=== PATIENT | female | born 1955 | race Caucasian/White ===

== ENCOUNTER 2019-07-19 09:54 | Emergency (ER) | payer OTHER ==
[2019-07-19 10:08] VITALS: TEMP 98.2; BMI 20.3
--- NOTE | 2019-07-19 10:51 | PDOC ---
Documentation entered by Sandra Tubbs SCRIBE, acting as scribe for Sen Paniagua MD. Sen Paniagua MD: This documentation has been prepared by the caityibeArley Brenda, SCRIBE, under my direction and personally reviewed by me in its entirety. I confirm that the documentation accurately reflects all work, treatment, procedures, and medical decision making performed by me. History of Present Illness - General Chief Complaint: Injury Stated Complaint: FALL History Source: Patient Exam Limitations: No Limitations - History of Present Illness Initial Comments: 07/19/19 10:38 The patient is a 63 year old female, with a significant PMH of MS who presents to the emergency department from assisted living facility after falling. Patient reports that she tripped and fell in her room. She notes that she fell on her L side and back. Patient currently endorses lower back pain. Denies headstrike/LOC. Pt denies any preceding lightheadedness/dizziness. The patient denies chest pain, shortness of breath, headache and dizziness. Denies LOC, or neck pain. Denies fever, chills, nausea, vomiting, diarrhea and constipation. Denies dysuria, frequency, urgency and hematuria. Patient was sent by her PMD Dr. Arizmendi to be admitted under Dr. Billingsley for rehab. I discussed plan with pt's daughter and HCP, Blanca, who requests that pt not be admitted unless medically necessary. She does not wish for pt to be placed in [facility]. She states that she believes her falls are due to her MS and recent cognitive decline, for which she has arranged f/u with 2 specialists. Her next appointment is next Wednesday, and daughter is concerned that if she is admitted and placed, she will miss the appointments she has been waiting so long to get. Allergies: NKA PCP:Gael Arizmendi Past History - Past Medical History Allergies/Adverse Reactions: Allergies Allergy/AdvReac Type Severity Reaction Status Date / Time No Known Allergies Allergy Verified 07/19/19 10:05 Home Medications: Ambulatory Orders Unobtainable 07/19/19 COPD: No - Immunization History Td Vaccination: No Immunization Up to Date: Yes - Psycho Social/Smoking Cessation Hx Smoking History: Never smoked Information on smoking cessation initiated: No Hx Alcohol Use: No Drug/Substance Use Hx: No Review of Systems - Review of Systems Able to Perform ROS?: Yes Comments:: 07/19/19 10:38 GENERAL/CONSTITUTIONAL: No fever or chills. No weakness. HEAD, EYES, EARS, NOSE AND THROAT: No change in vision. No ear pain or discharge. No sore throat. CARDIOVASCULAR: No chest pain, no shortness of breath, no loss of consciousness RESPIRATORY: No cough, wheezing, or hemoptysis. GASTROINTESTINAL: No nausea, vomiting, diarrhea or constipation. GENITOURINARY: No dysuria, frequency, or change in urination. MUSCULOSKELETAL: (+) Back pain. No joint or muscle swelling or pain. No neck pain. SKIN: No rash NEUROLOGIC: No vertigo, no change in strength/sensation. ENDOCRINE: No increased thirst. No abnormal weight change. HEMATOLOGIC/LYMPHATIC: No anemia, easy bleeding, or history of blood clots. ALLERGIC/IMMUNOLOGIC: No hives or skin allergy. *Physical Exam - Vital Signs Last Vital Signs Temp Pulse Resp BP Pulse Ox 98.2 F 89 16 139/84 99 07/19/19 10:06 07/19/19 10:06 07/19/19 10:06 07/19/19 10:06 07/19/19 10:06 - Physical Exam 07/19/19 10:38 GENERAL: Awake, alert, and fully oriented, in no acute distress. HEAD: No signs of trauma EYES: PERRLA, EOMI, sclera anicteric, conjunctiva clear ENT: Auricles normal inspection, hearing grossly normal, nares patent, oropharynx clear without exudates. Moist mucosa NECK: Nontender, no stepoffs, Normal ROM, supple, no lymphadenopathy, JVD, or masses LUNGS: Breath sounds equal, clear to auscultation bilaterally. No wheezes, and no crackles HEART: Regular rate and rhythm, normal S1 and S2, no murmurs, rubs or gallops ABDOMEN: Soft, nontender, normoactive bowel sounds. No guarding, no rebound. No masses EXTREMITIES: Normal range of motion, no edema. No clubbing or cyanosis. No cords, erythema, or tenderness NEUROLOGICAL: Cranial nerves II through XII intact. 5/5 strength and sensation in all extremities, Normal speech, normal gait, normal cerebellar function SKIN: Warm, Dry, normal turgor, no rashes or lesions noted. BACK: + Lumbar paraspinal TTP, no midline TTP, no stepoffs Medical Decision Making - Medical Decision Making 07/19/19 10:35 63 F with MS presenting with fall. No syncope/presyncopal symptoms. - CT head/c-spine/L-spine - CXR Pt's PMD requesting admission for [facility] placement. However, both pt and HCP Blanca requesting that pt be discharged back to assisted living if imaging is unremarkable. Both are refusing any bloodwork today. 07/19/19 11:57 CTs and XR unremarkable Discussed with pt's daughter Blanca, who does not want pt admitted for [facility] placement. I discussed the risk of recurrent falls and recommended admission to hospital, but daughter is insistent that she not be admitted. I assisted pt to her feet. Pt able to ambulate steadily with mild assistance ( uses walker at baseline) Will DC back to assisted living. Pt is well appearing, with normal vitals. Clinically stable for DC at this time. I discussed the physical exam findings, ancillary test results and final diagnoses with the patient. I answered all of the patient's questions. The patient was satisfied with the care received and felt comfortable with the discharge plan and treatment plan. The patient agrees to follow up with the primary care physician within 24-72 hours. Discharge - Discharge Information Problems reviewed: Yes Clinical Impression/Diagnosis: Fall, Back pain Disposition: HOME - Follow up/Referral Referrals: Gael Arizmendi MD [Primary Care Provider] - - Patient Discharge Instructions Patient Printed Discharge Instructions: How to Prevent Falls Additional Instructions: You were evaluated in the ED for a fall. Your CT scans and X rays did not show any fractures. We believe a rehab facility would be beneficial for you. However, because both you and your health-care proxy requested that you be discharged from the hospital, we cannot ensure that you will not have another fall. If you feel like you are going to fall, feel weak, unsteady, lightheaded, or have any other concerning symptoms, return to the ER immediately. Otherwise, follow up with your primary doctor within 48 hours. - Post Discharge Activity
[2019-07-19 13:07] VITALS: BP 135/68; PULSE 83
== END 2019-07-19 14:14 ==
LOC: JER 09:54
DX: M54.5 Low back pain (principal); W18.39XA Other fall on same level, initial encounter; Y93.89 Activity, other specified; Y92.122 Bedroom in nursing home as the place of occurrence of the external cause; Y99.8 Other external cause status; R29.6 Repeated falls; Z91.81 History of falling; G35 Multiple sclerosis; Z99.89 Dependence on other enabling machines and devices
CPT/HCPCS: 70450-TC; 71045-TC-FY; 72125-TC; 72131-TC; 99282-25

== ENCOUNTER 2019-07-22 07:12 | Inpatient (IN) | payer OTHER ==
[2019-07-22 07:29] VITALS: BMI 20.3
--- NOTE | 2019-07-22 07:36 | PDOC ---
History of Present Illness - General Chief Complaint: Injury Stated Complaint: FALL Time Seen by Provider: 07/22/19 07:35 History Source: Patient, Family (daughter) Exam Limitations: No Limitations - History of Present Illness Initial Comments: 07/22/19 07:57 63yF w PMHx multiple sclerosis presenting from [facility] w unwitnessed fall. Pt is a poor historian. 8-9pm last night, fell down while standing by sink. Questionable head trauma and LOC, down for "a couple of hours". Complaining of low back pain. Was seen 3d ago for fall, head CT did not show anything, pt refused lab workup. Was seen at another hospital for fall 2d ago, imaging did not show anything concerning. Denies fever, vision change, nausea/ vomiting, C/AB pain, SOB. Ambulates w walker at baseline. Scheduled for neuro f/ u and MRI next week Daughter is health care proxy Past History - Past Medical History Allergies/Adverse Reactions: Allergies Allergy/AdvReac Type Severity Reaction Status Date / Time No Known Allergies Allergy Verified 07/22/19 07:26 Home Medications: Ambulatory Orders Cephalexin [Keflex] 500 mg PO BID 7 Days #14 capsule 07/22/19 COPD: No HTN: Yes Other medical history: MS - Surgical History Appendectomy: Yes - Immunization History Td Vaccination: No Immunization Up to Date: Yes - Psycho Social/Smoking Cessation Hx Smoking History: Never smoked Have you smoked in the past 12 months: No Information on smoking cessation initiated: No Hx Alcohol Use: No Drug/Substance Use Hx: No Review of Systems - Review of Systems Constitutional: No: Chills, Fever HEENTM: No: Eye Pain, Recent change in vision, Nose Pain, Nose Congestion, Throat Pain, Mouth Pain Respiratory: No: Cough, Shortness of Breath Cardiac (ROS): Yes: Syncope. No: Chest Pain, Palpitations ABD/GI: No: Abdominal Distended, Constipated, Diarrhea, Nausea, Vomiting : No: Burning, Dysuria, Flank Pain Musculoskeletal: Yes: Back Pain. No: Neck Pain Integumentary: No: Bruising, Flushing, Lesions Neurological: No: Headache, Seizure, Tingling Psychiatric: No: Anxiety, Depression, Stressors Endocrine: No: Excessive Sweating, Flushing, Intolerance to Cold, Intolerance to Heat Hematologic/Lymphatic: No: Anemia, Blood Clots *Physical Exam - Vital Signs Last Vital Signs Temp Pulse Resp BP Pulse Ox 97.4 F L 93 H 18 128/77 93 L 07/22/19 07:26 07/22/19 07:26 07/22/19 07:26 07/22/19 07:26 07/22/19 07:26 - Physical Exam General Appearance: Yes: Nourished, Appropriately Dressed, Mild Distress HEENT: positive: EOMI, COLLINS, Normal Voice. negative: Scleral Icterus (R), Scleral Icterus (L), Nasal Congestion, Rhinorrhea, Sinus Tenderness Neck: positive: Supple. negative: Tender, Rigid Respiratory/Chest: positive: Lungs Clear, Normal Breath Sounds. negative: Chest Tender, Respiratory Distress, Crackles, Rales, Rhonchi, Stridor, Wheezing Cardiovascular: positive: Regular Rhythm, Regular Rate, S1, S2. negative: Edema , Murmur Gastrointestinal/Abdominal: positive: Normal Bowel Sounds, Flat, Soft. negative : Tender, Organomegaly Musculoskeletal: positive: Normal Inspection, Vertebral Tenderness (lumbar/ sacral), Other (no stepoffs, midline vertebral deformities, lumar paraspinal mild tenderness). negative: CVA Tenderness (R), CVA Tenderness (L) Extremity: positive: Delayed Capillary Refill Integumentary: positive: Normal Color, Dry, Other (no abrasions). 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 negative: Motor Strength 5/5 (4/5 BUE, 3/ 5 BLE strength), Sensory Deficit, Confused, Disoriented ED Treatment Course - LABORATORY CBC & Chemistry Diagram: 07/22/19 11:01 07/22/19 08:04 Medical Decision Making - Critical Care Time Total Critical Care Time (minutes): 45 Critical Care Statement: The care of this patient involved high complexity decision making to prevent further life threatening deterioration of the patient 's condition and/or to evaluate & treat vital organ system(s) failure or risk of failure. - Medical Decision Making 07/22/19 07:57 Head/c-spine CT showed moderate arthritis in spine, diffuse cerebral atrophy, hypodense changes in periventricular white matter suggesting chronic small vessel ischemia, no acute bleed/infarct/fracture Lumbar/sacral XR showed scoliosis, no acute fracture/dislocation CXR showed clear lung murillo. CBC CMP trop neg UA shows UTI --- 63yF w PMHx multiple sclerosis, recent frequent falls presenting from [facility] w unwitnessed fall w questionable LOC. Head/c-spine CT did not show acute bleed/infarct/fracture. Lumbar/sacral XR showed scoliosis, no acute fracture/dislocation. CXR did not show PNA. Low concern for ACS (neg trop, no chest pain/SOB). Has UTI and urinary retention ( straight cathed returned 1L urine). Given keflex Pt competent to make medical decisions. Pt refused EKG, peripheral IV for fluids or pain meds. Pt refused IV and PO pain meds including tylenol. Daughter at bedside. Had a long discussion regarding leaving AMA vs admit Admitted m/s Dr Hall for syncope, UTI, urinary retention Discharge - Discharge Information Problems reviewed: Yes Clinical Impression/Diagnosis: Urinary retention UTI (urinary tract infection) Qualifiers: Urinary tract infection type: acute cystitis Hematuria presence: without hematuria Qualified Code(s): N30.00 - Acute cystitis without hematuria Syncope Qualifiers: Syncope type: unspecified Qualified Code(s): R55 - Syncope and collapse Condition: Guarded - Additional Discharge Information Prescriptions: Cephalexin [Keflex] 500 mg PO BID 7 Days #14 capsule - Follow up/Referral Referrals: Gael Arizmendi MD [Primary Care Provider] - - Patient Discharge Instructions Patient Printed Discharge Instructions: DI for Syncope in Adults (Fainting), DI for Urinary Tract Infection (UTI) Additional Instructions: You were seen for fall. Your labs and imaging showed that you have a urine infection. You were given antibiotics. Please take the prescribed Keflex as directed for your infection You have been determined to have decision-making capacity and decided to leave our hospital against medical advice. Come back to the ED if you fall again, vomit, or have worsening head pain. - Post Discharge Activity
[2019-07-22] MEDS ORDERED: ACETAMINOPHEN 1000 MG/100 ML VIAL (NON FORMULARY) IVPB ONE (07:56)
[2019-07-22] MEDS ORDERED: SODIUM CHLORIDE 0.9% 500 ML INFUS.BAG IV ONE (07:56)
[2019-07-22] MEDS ORDERED: ACETAMINOPHEN 500 MG TABLET (FP) PO ONE (08:16)
--- NOTE | 2019-07-22 08:17 | PDOC ---
Attending Attestation - Resident Resident Name: Mike Norman - ED Attending Attestation I have performed the following: I have examined & evaluated the patient, The case was reviewed & discussed with the resident, I agree w/resident's findings & plan, Exceptions are as noted - HPI HPI: 07/22/19 08:35 Ms Rousseau is a 63 yo F h/o MS currently residing at an Assisted Living Facility Pt s/p fall at the assisted living facility Pt unable to give additional details about that fall Does not know how long she was on the ground Patient currently endorses lower back pain. Denies headstrike/LOC. Pt denies any preceding lightheadedness/dizziness. The patient denies chest pain, shortness of breath, headache and dizziness. Denies LOC, or neck pain. Denies fever, chills, nausea, vomiting, diarrhea and constipation. Denies dysuria, frequency, urgency and hematuria. - Physicial Exam PE: 07/22/19 08:17 07/19/19 10:38 GENERAL: Awake, alert, and fully oriented, in no acute distress. HEAD: No signs of trauma EYES: PERRLA, EOMI, sclera anicteric, conjunctiva clear ENT: Auricles normal inspection, hearing grossly normal, nares patent, oropharynx clear without exudates. Moist mucosa NECK: Nontender, no stepoffs, Normal ROM, supple LUNGS: Breath sounds equal, clear to auscultation bilaterally. No wheezes, and no crackles HEART: Regular rate and rhythm, normal S1 and S2, no murmurs, rubs or gallops ABDOMEN: Soft, nontender, normoactive bowel sounds EXTREMITIES: Normal range of motion, no edema NEUROLOGICAL: Cranial nerves II through XII intact. Unable to get out of bed and walk SKIN: Warm, Dry, normal turgor, no rashes or lesions noted. BACK: + Lumbar paraspinal TTP, no midline TTP, no stepoffs - Medical Decision Making 07/22/19 08:52 63 yo F h/o MS who presents to the ER s/p an unwitnessed fall This is the 2nd fall for this patient in 3 days Pt was initially sent to the ER (per charting) for PT/SNF placement Pt and daughter refused, requesting to be sent back to the Assisted Living facility Pt , likewise, is refusing blood testing and admission Will call pt daughter to discuss Clinical Impression: unwitnessed fall, initial presentation 07/22/19 13:45 Laboratory Tests 07/22/19 07/22/19 07/22/19 08:04 11:01 11:01 Hgb 14.0 Hct 41.0 BUN 19.4 H Creatinine 0.5 L Creatine Kinase 51 Troponin I < 0.02 EKG: NSR rate of 90 bpm, axis nml, RBBB, no st elevation or depression, t waves upright Pt initially refusing admission Pt later willing to stay Straight cath = 1000 cc Urine Clinical impression: Urinary retention, initial presentation Recurrent falls, repeat presentation
[2019-07-22 12:10] LABS: BASO % 0.6 % (0-2.0); LYMPH % 29.2 % (8-40); MCHC 34.1 g/dl (32.0-36.0); MEAN CELL VOLUME 93.7 fl (80-96); MEAN PLT VOLUME 7.8 fl (7.5-11.1); MONO % 6.9 % (3.8-10.2); NEUT % 61.3 % (42.8-82.8); PLATELET COUNT 381 K/MM3 (134-434); RBC 4.38 M/mm3 (3.60-5.2); RDW 14.8 % (11.6-15.6)
[2019-07-22 12:23] LABS: INR 0.97 (0.83-1.09); PROTHROMBIN TIME (PATIENT) 11.5 SEC (9.7-13.0)
[2019-07-22 12:31] LABS: ALBUMIN 3.9 g/dl (3.4-5.0); BILIRUBIN,TOTAL 0.4 mg/dL (0.2-1); BLOOD UREA NITROGEN 19.4 mg/dL (7-18); CALCIUM 9.4 mg/dL (8.5-10.1); CREATININE 0.5 mg/dL (0.55-1.3); POTASSIUM 3.8 mmol/L (3.5-5.1); TOT PROT 6.8 g/dl (6.4-8.2)
--- NOTE | 2019-07-22 14:03 | EKG ---
Test Reason : Blood Pressure : / mmHG Vent. Rate : 090 BPM Atrial Rate : 090 BPM P-R Int : 140 ms QRS Dur : 136 ms QT Int : 400 ms P-R-T Axes : 058 041 039 degrees QTc Int : 489 ms NORMAL SINUS RHYTHM RIGHT BUNDLE BRANCH BLOCK ABNORMAL ECG NO PREVIOUS ECGS AVAILABLE Confirmed by KIAH ALANIZ MD ([id number]) on 07/22/2019 2:03:26 PM Referred By: Confirmed By:KIAH ALANIZ MD
[2019-07-22 14:29] LABS: EPI CELLS 1.6 /HPF (0-5/HPF); HYALINE CASTS 3 /lpf (0-8); PH,URINE 6.5 (5.0-8.0); URINE APPEARANCE CLOUDY; URINE BACTERIA 2505.5 /hpf (NEGATIVE); URINE BILIRUBIN NEGATIVE (NEGATIVE); URINE COLOR YELLOW; URINE GLUCOSE (UA) NEGATIVE (NEGATIVE); URINE KETONE TRACE (NEGATIVE); URINE LEUK ESTERASE NEGATIVE (NEGATIVE); URINE NITRITE NEGATIVE (NEGATIVE); URINE PROTEIN NEGATIVE (NEGATIVE); URINE RBC 4 /hpf (0-4); URINE UROBILINOGEN 0.2 mg/dL (0.2-1.0); URINE WBC 7 /hpf (0-5)
[2019-07-22] MEDS ORDERED: CEPHALEXIN MONOHYDRATE 500 MG CAPSULE (UD) PO ONE (15:43)
[2019-07-22] MEDS ORDERED: CEPHALEXIN MONOHYDRATE 500 MG CAPSULE (UD) ONE (16:02)
--- NOTE | 2019-07-22 16:54 | HP ---
Admitting History and Physical - Primary Care Physician PCP: Gael Arizmendi - Admission Chief Complaint: unwitness fall History of Present Illness: 63yF w PMH of MS presenting from [facility] w unwitnessed fall. Pt is a poor historian. 8-9pm last night. Questionable head trauma and LOC, down for "a couple of hours". Complaining of low back pain. Was seen 3d ago for fall, HCT was negative and refused further w/u. Was seen at another hospital for fall 2d ago, with reported negative imaging. Denies fever, vision change, nausea/ vomiting, SOB. Ambulates w walker at baseline. Daughter states pt has been steadily declining over past few months. 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 - Past Surgical History Past Surgical History: Yes: None - Advance Directives Advance Directives: Yes: Health Care Proxy (daryn Rios) - Smoking History Smoking history: Never smoked Have you smoked in the past 12 months: No - Alcohol/Substance Use Hx Alcohol Use: No History of Substance Use: reports: None - Social History Usual Living Arrangement: Yes: Assisted Living ([facility]) ADL: Support Services Occupation: disability Home Medications - Allergies Allergies/Adverse Reactions: Allergies Allergy/AdvReac Type Severity Reaction Status Date / Time No Known Allergies Allergy Verified 07/22/19 07:26 - Home Medications Home Medications: Ambulatory Orders Acetaminophen 650 mg PO PRN 07/22/19 Aspirin 81 mg PO DAILY 07/22/19 Atorvastatin Ca [Lipitor] 40 mg PO HS 07/22/19 Cephalexin [Keflex] 500 mg PO BID 7 Days #14 capsule 07/22/19 Cholecalciferol (Vitamin D3) [Vitamin D3 -] 1,000 unit PO DAILY 07/22/19 Clonazepam 1 mg PO TID 07/22/19 Dimethyl Fumarate [Tecfidera] 240 mg PO BID 07/22/19 Ferrous Sulfate 325 mg PO DAILY 07/22/19 Ibuprofen 600 mg PO PRN PRN 07/22/19 Mirtazapine 30 mg PO DAILY 07/22/19 Polyvinyl Alcohol [Artificial Tears] 1 drop OD BID 07/22/19 Quetiapine Fumarate [Seroquel -] 25 mg PO HS 07/22/19 Family Medical History Family History: Unremarkable Review of Systems - Review of Systems Constitutional: reports: No Symptoms Eyes: reports: No Symptoms HENT: reports: No Symptoms Neck: reports: No Symptoms Cardiovascular: reports: No Symptoms Respiratory: reports: No Symptoms Gastrointestinal: reports: No Symptoms Genitourinary: reports: No Symptoms Breasts: reports: No Symptoms Reported Musculoskeletal: reports: Back Pain, Decreased ROM, Muscle Weakness Integumentary: reports: Other (dry skin) Neurological: reports: Change in LOC, Confusion, Dizziness, Incoordination, Unsteady Gait, Weakness Endocrine: reports: No Symptoms Hematology/Lymphatic: reports: No Symptoms Psychiatric: reports: Altered Sleep Pattern Physical Examination Vital Signs: Vital Signs Temperature 97.4 F L 07/22/19 07:26 Pulse Rate 93 H 07/22/19 07:26 Respiratory Rate 18 07/22/19 07:26 Blood Pressure 128/77 07/22/19 07:26 O2 Sat by Pulse Oximetry (%) 93 L 07/22/19 07:26 Constitutional: Yes: Well Nourished, Calm, Mild Distress (regarding hospitaliztion) Eyes: Yes: WNL, Conjunctiva Clear, EOM Intact HENT: Yes: WNL, Atraumatic, Normocephalic Neck: Yes: WNL, Supple, Trachea Midline Cardiovascular: Yes: WNL, Regular Rate and Rhythm Respiratory: Yes: WNL, Regular, CTA Bilaterally Gastrointestinal: Yes: WNL, Normal Bowel Sounds ...Rectal Exam: Yes: Deferred Renal/: Yes: Bladder Distention, Other (urinary retention) Breast(s): Yes: WNL Musculoskeletal: Yes: Back Pain (Lumbar paraspinal TTP), Joint Stiffness, Muscle Pain, Muscle Weakness Extremities: Yes: WNL Edema: LLE: Trace, RLE: Trace Peripheral Pulses WNL: Yes Peripheral Pulses: Left Radial: 2+, Right Radial: 2+, Left Doralis Pedis: 2+, Right Dorsalis Pedis: 2+, Left Femoral: 2+, Right Femoral: 2+ Integumentary: Yes: Other (dry skin) Neurological: Yes: Alert, Ataxia, Confusion, Cran Nerves II-XII Intact, Unsteady Gait, Weakness, Other (ambulates with walker) ...Motor Strength: LLE, RLE (weaKNESS) Psychiatric: Yes: Alert Labs: CBC, BMP 07/22/19 11:01 07/22/19 08:04 Imaging - Results Cat Scan: Report Reviewed (HCT: no acute pathology. C spine: moderate degenerative changes, no fx. Lumbar CT: 4 lumbar vertebral bodies indicating sacralization of L5.) EKG: Image Reviewed (EKG: NSR rate of 90 bpm, axis nml, RBBB, no st elevation or depression, t waves upright) Problem List - Problems (1) Multiple sclerosis Assessment/Plan: follows with neurologist at [facility] - daughter had appointment with another MD for second opinion regarding mother decompensation over last months neurology consult requested HCT without acute pathology questionable need for MRI of brain Code(s): G35 - MULTIPLE SCLEROSIS (2) Syncope Assessment/Plan: multiple falls over last week, questionable syncope v MS progression TTE & Carotid dopplers ordered fall precautions Code(s): R55 - SYNCOPE AND COLLAPSE Qualifiers: Syncope type: unspecified Qualified Code(s): R55 - Syncope and collapse (3) UTI (urinary tract infection) Assessment/Plan: dose of keflex given in ED c/w kelfex 500mg BID UCx pending Code(s): N39.0 - URINARY TRACT INFECTION, SITE NOT SPECIFIED Qualifiers: Urinary tract infection type: acute cystitis Hematuria presence: without hematuria Qualified Code(s): N30.00 - Acute cystitis without hematuria (4) Urinary retention Assessment/Plan: with UTI now, bladder retained over 1000cc in ED frequent toileting with assistance straight cath if continuing to retain bladder scan q 8H Code(s): R33.9 - RETENTION OF URINE, UNSPECIFIED (5) Back pain Assessment/Plan: Lumbar/c spine without acute pathology tylenol PRN pain avoid narcotics/muscle relaxants for back pain PT requested can offer lidopatch if pain persists Code(s): M54.9 - DORSALGIA, UNSPECIFIED (6) Fall Assessment/Plan: progressive decline over past few months with multiple fall, ? 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, could by contributing to falls avoid other sedating medications TTE & Carotid dopplers ordered cardiology & neurology consulted Code(s): W19.XXXA - UNSPECIFIED FALL, INITIAL ENCOUNTER (7) Prophylactic measure Assessment/Plan: FEN appears dehydrated poor skin turgor & skin very dry regular diet monitor electrolytes DVT no chemical AC given fall history Dispo admit to telemetry for syncope w/u full code discharge planning back to [facility] Code(s): Z29.9 - ENCOUNTER FOR PROPHYLACTIC MEASURES, UNSPECIFIED Visit type - Emergency Visit Emergency Visit: Yes Care time: The patient presented to the Emergency Department on the above date and was hospitalized for further evaluation of their emergent condition. - New Patient This patient is new to me today: Yes Date on this admission: 07/22/19 - Critical Care Critical Care patient: No
[2019-07-22] MEDS ORDERED: CHOLECALCIFEROL (VIT D3) 1,000 UNIT (25 MCG) TABLET PO ONE (17:38)
[2019-07-22] MEDS ORDERED: ACETAMINOPHEN 325 MG TABLET (FP) PO PRN (17:38)
[2019-07-22] MEDS ORDERED: ATORVASTATIN CA 40 MG TABLET (FP) PO ONE (17:38)
[2019-07-22] MEDS ORDERED: ATORVASTATIN CA 40 MG TABLET (FP) ONE (18:05)
[2019-07-22] MEDS ORDERED: MIRTAZAPINE 15 MG TABLET (FP) ONE (22:00)
[2019-07-22] MEDS ORDERED: HEPARIN NA (PORCINE) 5,000 UNITS/ML 1ML VIAL SQ SCH (22:00)
[2019-07-22] MEDS: clonazePAM 0.5 MG TABLET PO SCH (22:07)
[2019-07-22] MEDS: MIRTAZAPINE 30 MG TABLET (FP) PO SCH (22:07)
[2019-07-22] MEDS: CEPHALEXIN MONOHYDRATE 500 MG CAPSULE (UD) PO SCH (22:08)
[2019-07-23] MEDS: POLYETHYLENE GLYCOL 3350 119 GM BTL PO SCH ×3 (04:30→21:25)
[2019-07-23] MEDS: ARTIFICIAL TEARS (POLYVINYL ALCOHOL) OPTH DROPS OU SCH ×3 (04:30→21:25)
[2019-07-23] MEDS: clonazePAM 0.5 MG TABLET PO SCH ×4 (06:27→21:25)
--- NOTE | 2019-07-23 07:53 | PN ---
Progress Note, Physician Chief Complaint: No complaints offered. Asking to go home. History of Present Illness: 63yF w PMH of MS presenting from [facility] w unwitnessed fall. Pt is a poor historian. 8-9pm last night. Questionable head trauma and LOC, down for "a couple of hours". Complaining of low back pain. Was seen 3d ago for fall, HCT was negative and refused further w/u. Was seen at another hospital for fall 2d ago, with reported negative imaging. Denies fever, vision change, nausea/ vomiting, SOB. Ambulates w walker at baseline. Daughter states pt has been steadily declining over past few months. Scheduled for neuro f/u and MRI next week with additional laboratory testing - Current Medication List Current Medications: Active Medications Acetaminophen (Tylenol -) 650 mg PO Q6H PRN PRN Reason: PAIN LEVEL 1-5 Artificial Tears (Artificial Tears) 1 drop OU BID [facility] Last Admin: 07/23/19 04:30 Dose: Not Given Aspirin (Ecotrin -) 81 mg PO DAILY [facility] Cephalexin HCl (Keflex -) 500 mg PO BID [facility] Last Admin: 07/22/19 22:08 Dose: 500 mg Clonazepam (Klonopin -) 1 mg PO TID@0700,1100,1600 [facility] Last Admin: 07/23/19 06:27 Dose: 1 mg Clonazepam (Klonopin -) 1 mg PO HS@2200 [facility] Last Admin: 07/22/19 22:07 Dose: 1 mg Ferrous Sulfate (Feosol -) 325 mg PO DAILY@0800 [facility] Mirtazapine (Remeron -) 30 mg PO HS [facility] Last Admin: 07/22/19 22:07 Dose: 30 mg Polyethylene Glycol (Miralax (For Daily Use) -) 17 gm PO BID [facility] Last Admin: 07/23/19 04:30 Dose: Not Given - Objective Vital Signs: Vital Signs Temperature 98.4 F 07/23/19 05:00 Pulse Rate 84 07/23/19 05:00 Respiratory Rate 18 07/23/19 05:00 Blood Pressure 144/82 07/23/19 05:00 O2 Sat by Pulse Oximetry (%) 99 07/22/19 23:00 Additional Findings/Remarks: Constitutional: Yes: Well Nourished, Calm, Mild Distress (regarding hospitaliztion) Eyes: Yes: WNL, Conjunctiva Clear, EOM Intact HENT: Yes: WNL, Atraumatic, Normocephalic Neck: Yes: WNL, Supple, Trachea Midline Cardiovascular: Yes: WNL, Regular Rate and Rhythm Respiratory: Yes: WNL, Regular, CTA Bilaterally Gastrointestinal: Yes: WNL, Normal Bowel Sounds ...Rectal Exam: Yes: Deferred Renal/: Yes: Bladder Distention, Other (urinary retention) Breast(s): Yes: WNL Musculoskeletal: Yes: Back Pain (Lumbar paraspinal TTP-less today), Joint Stiffness, Muscle Pain, Muscle Weakness Extremities: Yes: WNL Edema: LLE: Trace, RLE: Trace Peripheral Pulses WNL: Yes Peripheral Pulses: Left Radial: 2+, Right Radial: 2+, Left Doralis Pedis: 2+, Right Dorsalis Pedis: 2+, Left Femoral: 2+, Right Femoral: 2+ Integumentary: Yes: Other (dry skin) Neurological: Yes: Alert, Ataxia, Confusion, Cran Nerves II-XII Intact, Unsteady Gait, Weakness, Other (ambulates with walker) ...Motor Strength: LLE, RLE (weaKNESS) Psychiatric: Yes: Alert Labs: CBC, BMP 07/22/19 11:01 07/22/19 08:04 INR, PTT INR 0.97 (0.83-1.09) 07/22/19 11:01 - ....Imaging Other: Other (Carotid doppplers done-report pending) Problem List - Problems (1) Multiple sclerosis Assessment/Plan: follows with neurologist at [facility] - daughter had appointment with another MD for second opinion regarding mother decompensation over last months neurology consult requested HCT without acute pathology questionable need for MRI of brain now-will defer to neurology given know MS Code(s): G35 - MULTIPLE SCLEROSIS (2) Syncope Assessment/Plan: multiple falls over last week, questionable syncope v MS progression TTE pending Carotid dopplers with mild atherosclerosis with no hemodynamically stenosis fall precautions working with PT Code(s): R55 - SYNCOPE AND COLLAPSE Qualifiers: Syncope type: unspecified Qualified Code(s): R55 - Syncope and collapse (3) UTI (urinary tract infection) Assessment/Plan: c/w kelfex 500mg BID UCx NGTD but was on abx when sent Code(s): N39.0 - URINARY TRACT INFECTION, SITE NOT SPECIFIED Qualifiers: Urinary tract infection type: acute cystitis Hematuria presence: without hematuria Qualified Code(s): N30.00 - Acute cystitis without hematuria (4) Urinary retention Assessment/Plan: with UTI now, bladder retained over 1000cc in ED voiding on own over night frequent toileting with assistance bladder scan q 8H Code(s): R33.9 - RETENTION OF URINE, UNSPECIFIED (5) Back pain Assessment/Plan: Lumbar/c spine without acute pathology tylenol PRN pain avoid narcotics/muscle relaxants for back pain PT requested Code(s): M54.9 - DORSALGIA, UNSPECIFIED (6) Fall Assessment/Plan: progressive decline over past few months with multiple fall, ? syncope fall precautions pt on senior living high doses of klonopin 4x a day, could by contributing to falls avoid other sedating medications TTE & Carotid dopplers ordered cardiology & neurology consulted and pending Code(s): W19.XXXA - UNSPECIFIED FALL, INITIAL ENCOUNTER (7) Prophylactic measure Assessment/Plan: FEN IVf given overnight-drinking now regular diet monitor electrolytes DVT no chemical AC given fall history Dispo admit to telemetry for syncope w/u full code discharge planning back to [facility] Code(s): Z29.9 - ENCOUNTER FOR PROPHYLACTIC MEASURES, UNSPECIFIED Visit type - Emergency Visit Emergency Visit: Yes ED Registration Date: 07/22/19 Care time: The patient presented to the Emergency Department on the above date and was hospitalized for further evaluation of their emergent condition. - New Patient This patient is new to me today: No - Critical Care Critical Care patient: No - Discharge Referral Referred to [facility] Med P.C.: No
[2019-07-23] MEDS: ASPIRIN COATED 81 MG TABLET.EC PO SCH (10:27)
[2019-07-23] MEDS: CEPHALEXIN MONOHYDRATE 500 MG CAPSULE (UD) PO SCH ×2 (10:28→21:23)
[2019-07-23] MEDS: FERROUS SO4 325 MG TABLET (FP) PO SCH (10:28)
--- NOTE | 2019-07-23 13:06 | CON.NEURO ---
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 - Past Surgical History Past Surgical History: Yes: None - Alcohol/Substance Use Hx Alcohol Use: No History of Substance Use: reports: None - Smoking History Smoking history: Never smoked Have you smoked in the past 12 months: No - Social History ADL: Support Services Occupation: disability Home Medications - Allergies Allergies/Adverse Reactions: Allergies Allergy/AdvReac Type Severity Reaction Status Date / Time No Known Allergies Allergy Verified 07/22/19 07:26 - Home Medications Home Medications: Ambulatory Orders Acetaminophen 650 mg PO PRN 07/22/19 Aspirin 81 mg PO DAILY 07/22/19 Atorvastatin Ca [Lipitor] 40 mg PO HS 07/22/19 Cephalexin [Keflex] 500 mg PO BID 7 Days #14 capsule 07/22/19 Cholecalciferol (Vitamin D3) [Vitamin D3 -] 1,000 unit PO DAILY 07/22/19 Clonazepam 1 mg PO TID 07/22/19 Dimethyl Fumarate [Tecfidera] 240 mg PO BID 07/22/19 Ferrous Sulfate 325 mg PO DAILY 07/22/19 Ibuprofen 600 mg PO PRN PRN 07/22/19 Mirtazapine 30 mg PO DAILY 07/22/19 Polyvinyl Alcohol [Artificial Tears] 1 drop OD BID 07/22/19 Quetiapine Fumarate [Seroquel -] 25 mg PO HS 07/22/19 Physical Exam-Neuro Vital Signs: Vital Signs Temperature 97.9 F 07/23/19 09:00 Pulse Rate 88 07/23/19 09:00 Respiratory Rate 18 07/23/19 09:00 Blood Pressure 145/72 07/23/19 09:00 O2 Sat by Pulse Oximetry (%) 99 07/23/19 09:00 Labs: CBC, BMP 07/22/19 11:01 07/22/19 08:04 INR, PTT INR 0.97 (0.83-1.09) 07/22/19 11:01 Assessment/Plan CC FALL AND cognitive decline HPI 63 year old female history of MS( diagnosed 18 month ago), patient also hve history of Depression and anxiety. She has multiple unwitnessed fall, and she is living in assisted living facility. Patient is able to walk with walker. 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 Patient has been having difficulty with walking and falling . She was diagnosed with MS by Dr Hodge. Patient is feeling better and was seen with daughter at bedside. PMH MS, Depression ad anxiety Allergies/Adverse Reactions: Allergies Allergy/AdvReac Type Severity Reaction Status Date / Time No Known Allergies Allergy Verified 07/22/19 07:26 - Home Medications Home Medications: Ambulatory Orders Acetaminophen 650 mg PO PRN 07/22/19 Aspirin 81 mg PO DAILY 07/22/19 Atorvastatin Ca [Lipitor] 40 mg PO HS 07/22/19 Cephalexin [Keflex] 500 mg PO BID 7 Days #14 capsule 07/22/19 Cholecalciferol (Vitamin D3) [Vitamin D3 -] 1,000 unit PO DAILY 07/22/19 Clonazepam 1 mg PO TID 07/22/19 Dimethyl Fumarate [Tecfidera] 240 mg PO BID 07/22/19 Ferrous Sulfate 325 mg PO DAILY 07/22/19 Ibuprofen 600 mg PO PRN PRN 07/22/19 Mirtazapine 30 mg PO DAILY 07/22/19 Polyvinyl Alcohol [Artificial Tears] 1 drop OD BID 07/22/19 Quetiapine Fumarate [Seroquel -] 25 mg PO HS 07/22/19 ROS,FH,SH reviewed in chart NEUROLOGICAL EXAMINATION Alert oriented x 2( confused about date), neck is supple, vss eomi, puils , no nystagmus, no face asymmetry moving all extremity able to walk with wlaker strength is normal at each group of muscle ftn is normal sensaiton is normal ct head and ct c spine is normal Assessment/Plan 63 year old female history of depression and anxiety . She is on Tecfidera for MS. 2. Cognitive difficulty secondary to mood disorder, ms and depression anxiety Plan: Continue current level of care - suggest to do MRI of brain and and C spine with contrast - PT -Patient can be discharged after mri, if any enhacing lesion, would recommend to give her iv steroid Thanking you so much Carlos Choudhruy MD
--- NOTE | 2019-07-23 13:23 | CON.CARD ---
Consult Consult Specialty:: Cardiology for Dr. Phan Referred by:: Hospitalist Medicine Reason for Consultation:: Syncope - History of Present Illness Chief Complaint: Syncope History of Present Illness: 63 year old female history of MS( diagnosed 18 month ago), Depression and anxiety. She has multiple unwitnessed fall and has been admitted for recurrence , questionable head trauma and LOC, patient denies. She is living in assisted living facility. Patient is able to walk with walker. 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 Patient has been having difficulty with walking and falling . She was diagnosed with MS by Dr Hodge. 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 - Past Surgical History Past Surgical History: Yes: None - Alcohol/Substance Use Hx Alcohol Use: No History of Substance Use: reports: None - Smoking History Smoking history: Never smoked Have you smoked in the past 12 months: No - Social History ADL: Support Services Occupation: disability Home Medications - Allergies Allergies/Adverse Reactions: Allergies Allergy/AdvReac Type Severity Reaction Status Date / Time No Known Allergies Allergy Verified 07/22/19 07:26 - Home Medications Home Medications: Ambulatory Orders Acetaminophen 650 mg PO PRN 07/22/19 Aspirin 81 mg PO DAILY 07/22/19 Atorvastatin Ca [Lipitor] 40 mg PO HS 07/22/19 Cephalexin [Keflex] 500 mg PO BID 7 Days #14 capsule 07/22/19 Cholecalciferol (Vitamin D3) [Vitamin D3 -] 1,000 unit PO DAILY 07/22/19 Clonazepam 1 mg PO TID 07/22/19 Dimethyl Fumarate [Tecfidera] 240 mg PO BID 07/22/19 Ferrous Sulfate 325 mg PO DAILY 07/22/19 Ibuprofen 600 mg PO PRN PRN 07/22/19 Mirtazapine 30 mg PO DAILY 07/22/19 Polyvinyl Alcohol [Artificial Tears] 1 drop OD BID 07/22/19 Quetiapine Fumarate [Seroquel -] 25 mg PO HS 07/22/19 Review of Systems - Review of Systems Constitutional: reports: Weakness Neurological: reports: Incoordination, Unsteady Gait, Weakness Vital Signs: Vital Signs Temperature 97.9 F 07/23/19 09:00 Pulse Rate 88 07/23/19 09:00 Respiratory Rate 18 07/23/19 09:00 Blood Pressure 145/72 07/23/19 09:00 O2 Sat by Pulse Oximetry (%) 99 07/23/19 09:00 Constitutional: Yes: No Distress, Calm, Thin Neck: Yes: Supple Respiratory: Yes: Regular, CTA Bilaterally Gastrointestinal: Yes: Normal Bowel Sounds, Soft Cardiovascular: Yes: Regular Rate and Rhythm JVD: No Carotid Bruit: No Heart Sounds: Yes: S1, S2 Edema: No - Other Data Labs, Other Data: CBC, BMP 07/22/19 11:01 07/22/19 08:04 INR, PTT INR 0.97 (0.83-1.09) 07/22/19 11:01 NSR @ 90 RBBB Ejection Fraction %: LVEF > or = 40 % Imaging - Results Chest X-ray: Report Reviewed (NAD) Cat Scan: Report Reviewed (HCT, c-spine: Negative) Ultrasound: Report Reviewed (Carotid US: No sig stenosis) Problem List - Problems (1) Gait disturbance Code(s): R26.9 - UNSPECIFIED ABNORMALITIES OF GAIT AND MOBILITY (2) Multiple sclerosis Code(s): G35 - MULTIPLE SCLEROSIS Assessment/Plan 07/22/[address] c spine is normal 07/22/2019 Carotid US: Neg for stenosis 1. Multiple sclerosis on Tecfidera 2. Cognitive difficulty secondary to mood disorder, ms and depression anxiety 3. Multiple falls, gait instability vs syncope 2/2 dysautonomia 4. UTI with neurogenic bladder and urinary retention 5. Chronic LBP 6. Hyperlipidemia Plan: 1. Check orthostatic VS 2. F/u MRI of brain and and C spine with contrast, if any enhacing lesion, would recommend to give her iv steroid 3. F/u echocardiogram results, night monitor 4. post void residuals, PT and gait training with walker assistance, continue Lipitor 40 qd 5. Thank you for consultative opportunity
[2019-07-23] MEDS ORDERED: MIRTAZAPINE 15 MG TABLET (FP) ONE (21:11)
[2019-07-23] MEDS: ATORVASTATIN CA 40 MG TABLET (FP) PO SCH (21:23)
[2019-07-23] MEDS: MIRTAZAPINE 30 MG TABLET (FP) PO SCH (21:23)
[2019-07-24] MEDS: clonazePAM 0.5 MG TABLET PO SCH ×4 (06:01→21:55)
--- NOTE | 2019-07-24 09:38 | PN ---
Progress Note (short form) - Note Progress Note: 63 year old female history of MS( diagnosed 18 month ago), patient also hve history of Depression and anxiety. She has multiple unwitnessed fall, and she is living in assisted living facility. Patient is able to walk with walker. 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 Patient has been having difficulty with walking and falling . She was diagnosed with MS by Dr Hodge. No new complain and waiting for mri of brain. NEUROLOGICAL EXAMINATION Alert oriented x 2( confused about date), neck is supple, vss eomi, puils , no nystagmus, no face asymmetry moving all extremity able to walk with wlaker strength is normal at each group of muscle ftn is normal sensaiton is normal ct head and ct c spine is normal mri of brain and c spine is pending Assessment/Plan 63 year old female history of depression and anxiety . She is on Tecfidera for MS. 2. Cognitive difficulty secondary to mood disorder, ms and depression anxiety Plan: Continue current level of care -waiting MRI of brain and and C spine with contrast - PT -Patient can be discharged after mri, if any enhacing lesion, would recommend to give her iv steroid Thanking you so much Carlos Choudhury MD
[2019-07-24] MEDS: CEPHALEXIN MONOHYDRATE 500 MG CAPSULE (UD) PO SCH ×2 (09:47→21:56)
[2019-07-24] MEDS: POLYETHYLENE GLYCOL 3350 119 GM BTL PO SCH ×2 (09:48→21:55)
[2019-07-24] MEDS: FERROUS SO4 325 MG TABLET (FP) PO SCH (09:48)
[2019-07-24] MEDS: ASPIRIN COATED 81 MG TABLET.EC PO SCH (09:48)
[2019-07-24] MEDS: ARTIFICIAL TEARS (POLYVINYL ALCOHOL) OPTH DROPS OU SCH ×2 (09:48→22:01)
--- NOTE | 2019-07-24 10:04 | PN ---
Physical Exam: SUBJECTIVE: Patient seen and examined OBJECTIVE: Patient is a 63 year old female with a significant past medical history of MS, depression and anxiety. She presents to the ED from [facility] w unwitnessed fall. She is pending brain/cervical MRI prior to d/c Vital Signs Period Temp Pulse Resp BP Sys/Clemente Pulse Ox Last 24 Hr 97.6 F-99.1 F 76-100 18-20 124-147/63-87 100-100 GENERAL: The patient is awake, alert, and fully oriented, in no acute distress. HEAD: Normal with no signs of trauma. EYES: PERRL, extraocular movements intact, sclera anicteric, conjunctiva clear. No ptosis. ENT: Ears normal, nares patent, oropharynx clear without exudates, moist mucous membranes. NECK: Trachea midline, full range of motion, supple. LUNGS: Breath sounds equal, diminished HEART: Regular rate and rhythm ABDOMEN: Soft, nontender, nondistended, normoactive bowel sounds EXTREMITIES: no edema. NEUROLOGICAL: Normal speech, ambulates with rw PSYCH: Normal mood, normal affect. SKIN: Warm, dry, normal turgor, no rashes or lesions noted Active Medications Generic Name Dose Route Start Last Admin Trade Name Freq PRN Reason Stop Dose Admin Acetaminophen 650 mg 07/22/19 17:38 Tylenol - PO Q6H PRN PAIN LEVEL 1-5 Artificial Tears 1 drop 07/22/19 22:00 07/23/19 21:25 Artificial Tears OU 1 drop BID [facility] Administration Aspirin 81 mg 07/23/19 10:00 07/23/19 10:27 Ecotrin - PO 81 mg DAILY [facility] Administration Atorvastatin Calcium 40 mg 07/23/19 22:00 07/23/19 21:23 Lipitor - PO 40 mg HS [facility] Administration Cephalexin HCl 500 mg 07/22/19 22:00 07/23/19 21:23 Keflex - PO 500 mg BID [facility] Administration Clonazepam 1 mg 07/23/19 07:00 07/24/19 06:01 Klonopin - PO 1 mg TID@0700,1100,1600 [facility] Administration Clonazepam 1 mg 07/22/19 22:00 07/23/19 21:25 Klonopin - PO 1 mg HS@2200 [facility] Administration Ferrous Sulfate 325 mg 07/23/19 08:00 07/23/19 10:28 Feosol - PO 325 mg DAILY@0800 [facility] Administration Mirtazapine 30 mg 07/22/19 22:00 07/23/19 21:23 Remeron - PO 30 mg HS [facility] Administration Non-Formulary Medication 240 mg 07/23/19 22:00 Dimethyl Fumarate [Tecfidera] PO BID [facility] Polyethylene Glycol 17 gm 07/22/19 22:00 07/23/19 21:25 Miralax (For Daily Use) - PO 17 grams BID [facility] Administration ASSESSMENT/PLAN: Problem List - Problems (1) Syncope Assessment/Plan: multiple falls over last week, questionable syncope v MS progression TTE pending Carotid dopplers with mild atherosclerosis with no hemodynamically stenosis fall precautions working with PT Code(s): R55 - SYNCOPE AND COLLAPSE Qualifiers: Syncope type: unspecified Qualified Code(s): R55 - Syncope and collapse (2) Gait disturbance Assessment/Plan: progressive decline over past few months with multiple falls fall precautions pt on long-term high doses of klonopin 4x a day, could by contributing to falls avoid other sedating medications TTE & Carotid dopplers ordered, pending cardiology & neurology consulted and pending Code(s): R26.9 - UNSPECIFIED ABNORMALITIES OF GAIT AND MOBILITY (3) Multiple sclerosis Assessment/Plan: follows with neurologist at [facility] - daughter had appointment with another MD for second opinion regarding mother decompensation over last months neurology consult requested HCT without acute pathology brain mri pending Code(s): G35 - MULTIPLE SCLEROSIS (4) UTI (urinary tract infection) Assessment/Plan: c/w kelfex 500mg BID [facility] NGTD but was on abx when sent Code(s): N39.0 - URINARY TRACT INFECTION, SITE NOT SPECIFIED Qualifiers: Urinary tract infection type: acute cystitis Hematuria presence: without hematuria Qualified Code(s): N30.00 - Acute cystitis without hematuria (5) Urinary retention Assessment/Plan: with UTI now, bladder retained over 1000cc in ED voiding on own frequent toileting with assistance bladder scan q 8h Code(s): R33.9 - RETENTION OF URINE, UNSPECIFIED (6) Back pain Assessment/Plan: Lumbar/c spine without acute pathology tylenol PRN pain avoid narcotics/muscle relaxants for back pain PT requested Code(s): M54.9 - DORSALGIA, UNSPECIFIED (7) Fall Code(s): W19.XXXA - UNSPECIFIED FALL, INITIAL ENCOUNTER (8) Prophylactic measure Assessment/Plan: FEN regular diet monitor electrolytes DVT no chemical AC given fall history Dispo telemetry for syncope w/u full code discharge planning back to [facility] Code(s): Z29.9 - ENCOUNTER FOR PROPHYLACTIC MEASURES, UNSPECIFIED Visit type - Emergency Visit Emergency Visit: Yes ED Registration Date: 07/22/19 Care time: The patient presented to the Emergency Department on the above date and was hospitalized for further evaluation of their emergent condition. - New Patient This patient is new to me today: Yes Date on this admission: 07/24/19 - Critical Care Critical Care patient: No - Discharge Referral Referred to [facility] Med P.C.: No
--- NOTE | 2019-07-24 11:50 | PN ---
Progress Note, Physician History of Present Illness: Ms Rousseau is a 63 yo F h/o MS currently residing at an Assisted Living Facility Pt s/p fall at the assisted living facility Pt unable to give additional details about that fall Does not know how long she was on the ground Patient currently endorses lower back pain. Denies headstrike/LOC. Pt denies any preceding lightheadedness/dizziness. The patient denies chest pain, shortness of breath, headache and dizziness. Denies LOC, or neck pain. Denies fever, chills, nausea, vomiting, diarrhea and constipation. Denies dysuria, frequency, urgency and hematuria. - Current Medication List Current Medications: Active Medications Acetaminophen (Tylenol -) 650 mg PO Q6H PRN PRN Reason: PAIN LEVEL 1-5 Artificial Tears (Artificial Tears) 1 drop OU BID [facility] Last Admin: 07/24/19 09:48 Dose: 1 drop Aspirin (Ecotrin -) 81 mg PO DAILY [facility] Last Admin: 07/24/19 09:48 Dose: 81 mg Atorvastatin Calcium (Lipitor -) [address] [facility] Last Admin: 07/23/19 21:23 Dose: 40 mg Cephalexin HCl (Keflex -) 500 mg PO BID [facility] Last Admin: 07/24/19 09:47 Dose: 500 mg Clonazepam (Klonopin -) 1 mg PO TID@0700,1100,1600 [facility] Last Admin: 07/24/19 06:01 Dose: 1 mg Clonazepam (Klonopin -) 1 mg PO HS@2200 [facility] Last Admin: 07/23/19 21:25 Dose: 1 mg Ferrous Sulfate (Feosol -) 325 mg PO DAILY@0800 [facility] Last Admin: 07/24/19 09:48 Dose: 325 mg Mirtazapine (Remeron -) 30 mg PO HS [facility] Last Admin: 07/23/19 21:23 Dose: 30 mg Non-Formulary Medication (Dimethyl Fumarate [Tecfidera]) 240 mg PO BID [facility] Polyethylene Glycol (Miralax (For Daily Use) -) 17 gm PO BID [facility] Last Admin: 07/24/19 09:48 Dose: 17 grams - Objective Vital Signs: Vital Signs Temperature 97.9 F 07/24/19 06:00 Pulse Rate 82 07/24/19 06:00 Respiratory Rate 18 07/24/19 09:00 Blood Pressure 147/76 07/24/19 06:00 O2 Sat by Pulse Oximetry (%) 100 07/24/19 09:00 Labs: CBC, BMP 07/22/19 11:01 07/22/19 08:04 INR, PTT INR 0.97 (0.83-1.09) 07/22/19 11:01
--- NOTE | 2019-07-24 12:41 | ECHO ---
Name: JUAN YOU Exam:Adult Echocardiogram Study Date: 07/24/2019 11:46 AM Age: 63 yrs Reason For Study: SYNCOPE Height: 67 in Weight: 130 lb BSA: 1.7 m2 MMode/2D Measurements & Calculations IVSd: 1.0 cm Ao root diam: 2.9 cm LVIDd: 2.6 cm LA dimension: 2.5 cm LVIDs: 1.9 cm ACS: 2.0 cm LVPWd: 0.80 cm EDV(Teich): 23.6 ml LVOT diam: 1.8 cm ESV(Teich): 11.0 ml RV S Simon: 14.2 cm/sec Doppler Measurements & Calculations MV E max simon: 84.4 cm/sec Ao V2 max: 149.9 cm/sec MV A max simon: 107.1 cm/sec Ao max P.0 mmHg MV E/A: 0.79 Ao V2 mean: 119.7 cm/sec MV dec time: 0.21 sec Ao mean P.0 mmHg Ao V2 VTI: 30.8 cm SAMUEL(I,D): 2.1 cm2 SAMUEL(V,D): 2.2 cm2 LV V1 max P.2 mmHg MR max simon: 449.0 cm/sec LV V1 mean P.4 mmHg MR max P.7 mmHg LV V1 max: 134.4 cm/sec LV V1 mean: 82.7 cm/sec LV V1 VTI: 25.9 cm SV(LVOT): 64.7 ml TR max simon: 176.0 cm/sec TR max P.1 mmHg PA V2 max: 55.3 cm/sec Med Peak E' Simon: 7.0 cm/sec PA max P.2 mmHg Med E/e': 12.0 Lat Peak E' Simon: 10.0 cm/sec Lat E/e': 8.4 Procedure A complete two-dimensional transthoracic echocardiogram was performed (2D, M-mode, Doppler and color flow Doppler). Left Ventricle The left ventricle is normal in size. Left ventricular systolic function is normal. Ejection Fraction = 55- 60%. No regional wall motion abnormalities noted. Right Ventricle The right ventricle is normal size. The right ventricular systolic function is normal. RV systolic TD I is 14 cm/s. Atria The left atrial size is normal. Right atrial size is normal. Mitral Valve The mitral valve is normal in structure and function. There is mild mitral regurgitation. Tricuspid Valve The tricuspid valve is normal in structure and function. There is mild tricuspid regurgitation. Right ventricular systolic pressure is normal. Aortic Valve There is mild aortic sclerosis.;. No aortic regurgitation is present. Pulmonic Valve The pulmonic valve is not well visualized. Great Vessels The aortic root is normal size. Pericardium/Pleura There is no pericardial effusion. Interpretation Summary The left ventricle is normal in size. Left ventricular systolic function is normal. No regional wall motion abnormalities noted. Ejection Fraction = 55-60%. The right ventricular systolic function is normal. The left atrial size is normal. Right atrial size is normal. There is mild mitral regurgitation. There is mild tricuspid regurgitation. Right ventricular systolic pressure is normal. There is mild aortic sclerosis. There is no pericardial effusion. Meng Clemente MD 07/24/2019 12:40 PM
[2019-07-24] MEDS ORDERED: MIRTAZAPINE 15 MG TABLET (FP) ONE (21:44)
[2019-07-24] MEDS: ATORVASTATIN CA 40 MG TABLET (FP) PO SCH (21:54)
[2019-07-24] MEDS: MIRTAZAPINE 30 MG TABLET (FP) PO SCH (21:55)
[2019-07-24] MEDS: PATIENT'S OWN MEDICATION (NON-FORMULARY) (Dimethyl Fumarate [Tecfidera] 240 MG) PO SCH (21:57)
[2019-07-25] MEDS: clonazePAM 0.5 MG TABLET PO SCH (06:39)
--- NOTE | 2019-07-25 07:35 | PN ---
Progress Note (short form) - Note Progress Note: 63 year old female history of MS( diagnosed 18 month ago), patient also hve history of Depression and anxiety. She has multiple unwitnessed fall, and she is living in assisted living facility. Patient is able to walk with walker. 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 Patient has been having difficulty with walking and falling . She was diagnosed with MS by Dr Hodge. mri of brain and c spine with contrast done and there is old plaque and no evidence of enhancing lesion. NEUROLOGICAL EXAMINATION Alert oriented x 2( confused about date), neck is supple, vss eomi, puils , no nystagmus, no face asymmetry moving all extremity able to walk with wlaker strength is normal at each group of muscle ftn is normal sensaiton is normal ct head and ct c spine is normal mri of brain and c spine report reviewed , there is demyelinating plaque but no enhancing lesion Assessment/Plan 63 year old female history of depression and anxiety . She is on Tecfidera for MS. 2. Cognitive difficulty secondary to mood disorder, ms and depression anxiety Plan: Continue current level of care -mri of brain and c spine did not show any enhancing lesion, patient can be discharged from neurological point of view - no need for iv steroid. Thanking you so much Carlos Choudhury MD
--- NOTE | 2019-07-25 09:29 | DS ---
Physical Exam: SUBJECTIVE: Patient seen and examined, denies pain OBJECTIVE: Patient is a 63 year old female with a significant past medical history of MS, depression and anxiety. She presents to the ED from [facility] w unwitnessed fall. MRI of brain and c spine did not show any enhancing lesion. Seen by neurologist and cleared for discharge. She will be discharged back to [facility]. Period Temp Pulse Resp BP Sys/Clemente Pulse Ox Last 24 Hr 98 F-98.3 F 81-93 18-20 129-143/69-85 98 PHYSICAL EXAM GENERAL: The patient is awake, alert, and fully oriented, in no acute distress. HEAD: Normal with no signs of trauma. EYES: PERRL, extraocular movements intact, sclera anicteric, conjunctiva clear. No ptosis. ENT: Ears normal, nares patent, oropharynx clear without exudates, moist mucous membranes. NECK: Trachea midline, full range of motion, supple. LUNGS: Breath sounds equal, diminished HEART: Regular rate and rhythm ABDOMEN: Soft, nontender, nondistended, normoactive bowel sounds EXTREMITIES: no edema. NEUROLOGICAL: Normal speech, ambulates with rw PSYCH: Normal mood, normal affect. SKIN: Warm, dry, normal turgor, no rashes or lesions noted LABS Laboratory Results - last 24 hr 07/22/19 07/24/19 08:04 08:00 Sodium 143 Potassium 3.8 Chloride 106 Carbon Dioxide 30 Anion Gap 7 L BUN 19.4 H Creatinine 0.5 L Est GFR (CKD-EPI)AfAm 119.38 Est GFR (CKD-EPI)NonAf 103.00 Random Glucose 121 H Hemoglobin A1c % 5.2 Calcium 9.4 Total Bilirubin 0.4 AST 13 L ALT 25 Alkaline Phosphatase 95 Total Protein 6.8 Albumin 3.9 Triglycerides 83 Cholesterol 187 Total LDL Cholesterol 90 HDL Cholesterol 78 H TSH 0.99 HOSPITAL COURSE: Date of Admission:07/22/19 Date of Discharge: 07/25/19 Minutes to complete discharge: 45 Discharge Summary Problems reviewed: Yes Reason For Visit: URINARY TRACT INFECTION,SYNCOPE,RETENTION OF URINE Current Active Problems Gait disturbance (Acute) Multiple sclerosis (Acute) Prophylactic measure (Acute) Syncope (Acute) UTI (urinary tract infection) (Acute) Urinary retention (Acute) Condition: Improved - Instructions Referrals: Gael Arizmendi MD [Primary Care Provider] - Disposition: [facility] - Home Medications Comprehensive Discharge Medication List: Ambulatory Orders Acetaminophen 650 mg PO PRN 07/22/19 Aspirin 81 mg PO DAILY 07/22/19 Atorvastatin Ca [Lipitor] 40 mg PO HS 07/22/19 Cholecalciferol (Vitamin D3) [Vitamin D3 -] 1,000 unit PO DAILY 07/22/19 Clonazepam 1 mg PO TID 07/22/19 Dimethyl Fumarate [Tecfidera] 240 mg PO BID 07/22/19 Ferrous Sulfate 325 mg PO DAILY 07/22/19 Ibuprofen 600 mg PO PRN PRN 07/22/19 Mirtazapine 30 mg PO DAILY 07/22/19 Polyvinyl Alcohol [Artificial Tears] 1 drop OD BID 07/22/19 Quetiapine Fumarate [Seroquel -] 25 mg PO HS 07/22/19 Problem List - Problems (1) Syncope Assessment/Plan: multiple falls over last week, questionable syncope v MS progression Carotid dopplers with mild atherosclerosis with no hemodynamically stenosis fall precautions echo ef 55-65%, mild mr, mild tr, no pericardial effusion working with PT Code(s): R55 - SYNCOPE AND COLLAPSE Qualifiers: Syncope type: unspecified Qualified Code(s): R55 - Syncope and collapse (2) Gait disturbance Assessment/Plan: progressive decline over past few months with multiple falls fall precautions 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 Code(s): N39.0 - URINARY TRACT INFECTION, SITE NOT SPECIFIED Qualifiers: Urinary tract infection type: acute cystitis Hematuria presence: without hematuria Qualified Code(s): N30.00 - Acute cystitis without hematuria (5) Urinary retention Assessment/Plan: resolved Code(s): R33.9 - RETENTION OF URINE, UNSPECIFIED (6) Back pain Assessment/Plan: Lumbar/c spine without acute pathology tylenol PRN pain avoid narcotics/muscle relaxants for back pain PT requested Code(s): M54.9 - DORSALGIA, UNSPECIFIED (7) Fall Assessment/Plan: physical therapy using a rolator for physical therapy at assisted living. Code(s): W19.XXXA - UNSPECIFIED FALL, INITIAL ENCOUNTER (8) Prophylactic measure Assessment/Plan: discharge back to [facility] Code(s): Z29.9 - ENCOUNTER FOR PROPHYLACTIC MEASURES, UNSPECIFIED This patient is new to me today: No Emergency Visit: Yes ED Registration Date: 07/22/19 Care time: The patient presented to the Emergency Department on the above date and was hospitalized for further evaluation of their emergent condition. Critical Care patient: No - Discharge Referral Referred to [facility] No
[2019-07-25] MEDS: ASPIRIN COATED 81 MG TABLET.EC PO SCH (10:28)
[2019-07-25] MEDS: CEPHALEXIN MONOHYDRATE 500 MG CAPSULE (UD) PO SCH (10:28)
[2019-07-25] MEDS: PATIENT'S OWN MEDICATION (NON-FORMULARY) (Dimethyl Fumarate [Tecfidera] 240 MG) PO SCH (10:29)
[2019-07-25] MEDS: ARTIFICIAL TEARS (POLYVINYL ALCOHOL) OPTH DROPS OU SCH (10:29)
[2019-07-25] MEDS: FERROUS SO4 325 MG TABLET (FP) PO SCH (10:30)
[2019-07-25] MEDS: POLYETHYLENE GLYCOL 3350 119 GM BTL PO SCH (10:30)
[2019-07-25 11:30] VITALS: BP 118/64; PULSE 101; TEMP 98.7
== END 2019-07-25 12:35 | DRG 92 ==
LOC: JER 07:12 → JERBED 15:50 → J4W 21:57
PROVIDERS: ATTEND Nurse Practitioner Family
DX: R26.9 Unspecified abnormalities of gait and mobility (principal); N39.0 Urinary tract infection, site not specified; R55 Syncope and collapse; G35 Multiple sclerosis; R33.9 Retention of urine, unspecified; F41.8 Other specified anxiety disorders; W19.XXXA Unspecified fall, initial encounter
CPT/HCPCS: 36415; 70450-TC; 70553-TC; 71045-TC-FY; 72100-TC-FY; 72125-TC; 72131-TC; 72156-TC; 74018-TC-FY; 80053; 80061; 81003; 82550; 83036; 83721; 84443; 84484; 85025; 85610; 87086; 87798; 93005; 93010; 93306-TC; 93880-TC; 97116-GP; 97161-GP; 99282-25; 99285-25; A9579

== ENCOUNTER 2019-07-29 01:15 | Emergency (ER) | payer OTHER ==
[2019-07-29 01:28] VITALS: BP 127/77; PULSE 90; TEMP 98.2; BMI 20.3
--- NOTE | 2019-07-29 02:40 | PDOC ---
History of Present Illness - History of Present Illness Initial Comments: 07/29/19 03:37 63 year old woman with a history of HTN who presents with "whole spine" pain after a fall onto her left side while walking at home. The patient denies AC use, hitting her head or loc. She denies any other symptoms but states that her entire spine hurts. She has had multiple visits to the ER in the last two weeks with multiples images of her spine and head that did not show acute findings. ROS GENERAL/CONSTITUTIONAL: No fever or chills. No weakness. HEAD, EYES, EARS, NOSE AND THROAT: No sore throat. CARDIOVASCULAR: No chest pain or shortness of breath RESPIRATORY: No cough, wheezing, or hemoptysis. GASTROINTESTINAL: No nausea, vomiting, diarrhea or constipation. GENITOURINARY: No dysuria, frequency, or change in urination. MUSCULOSKELETAL: No joint or muscle swelling or pain. + neck and back pain. SKIN: No rash NEUROLOGIC: No headache, vertigo, loss of consciousness, or change in strength/ sensation. PE GENERAL: Awake, alert, and fully oriented, in no acute distress HEAD: No signs of trauma, normocephalic, atraumatic EYES: EOMI, sclera anicteric, conjunctiva clear ENT: oropharynx clear without exudates. Moist mucosa NECK: Normal ROM, supple LUNGS: No distress, speaks full sentences, clear to auscultation bilaterally HEART: Regular rate and rhythm, normal S1 and S2, no murmurs, rubs or gallops, peripheral pulses normal and equal bilaterally. ABDOMEN: Soft, nontender No guarding, no rebound. No masses BACK: patient endorses pain to cervical, thoracic and lumbar spine on palpation EXTREMITIES : Normal inspection, Normal range of motion, no edema. No clubbing or cyanosis. NEUROLOGICAL: Cranial nerves II through XII grossly intact. Normal speech, no focal sensorimotor deficits SKIN: Warm, Dry, normal turgor, no rashes or lesions noted MDM DDX including but not limited to: r/o fx vs dislocation pain control ED Course: will evaluate for fx vs dislocation XR of thoracic and lumbar spine without signs of fx or subluxation d/c w/ pcp f/u Rose Marie Bowens, PGY2 Emergency Medicine 07/29/19 20:59 <Rose Marie Bowens - Last Filed: 07/29/19 20:59> <Magaly Mccrary - Last Filed: 07/29/19 21:03> - General Chief Complaint: Back Pain Stated Complaint: BACK PAIN Time Seen by Provider: 07/29/19 02:18 Attending Attestation - Resident Resident Name: Esperanza Bowensie - ED Attending Attestation I have performed the following: I have examined & evaluated the patient, The case was reviewed & discussed with the resident, I agree w/resident's findings & plan - HPI HPI: 07/29/19 21:01 Pt complains of chronic back pain and she is anxious and is convinced that she has a broken back despite multiple images to the contrary and lack of any trauma or injury. Strange and deoressed and anxious affect. Pt lives in assisted living facility - Physicial Exam PE: 07/29/19 21:02 Agree with resident exam Pt has no spine stepoffs. She has some thoracic pain and she will have her T spine XRAYS done here - Medical Decision Making 07/29/19 21:03 Pt will be given pain meds and she can go home XR normal <Magaly Mccrary - Last Filed: 07/29/19 21:03> Past History - Past Medical History COPD: No HTN: Yes - Surgical History Appendectomy: Yes - Immunization History Td Vaccination: No Immunization Up to Date: Yes - Psycho Social/Smoking Cessation Hx Smoking History: Never smoked Have you smoked in the past 12 months: No Hx Alcohol Use: No Drug/Substance Use Hx: No Substance Use Type: None Hx Substance Use Treatment: No <Rose Marie Bowens - Last Filed: 07/29/19 20:59> <Magaly Mccrary - Last Filed: 07/29/19 21:03> - Past Medical History Allergies/Adverse Reactions: Allergies Allergy/AdvReac Type Severity Reaction Status Date / Time Penicillins Allergy Mild Rash Verified 07/29/19 01:31 Home Medications: Ambulatory Orders Acetaminophen 325 mg PO PRN 07/29/19 Aspirin 81 mg PO DAILY 07/29/19 Atorvastatin Ca [Lipitor] 40 mg PO HS 07/29/19 Clonazepam 1 mg PO QID 07/29/19 Dextran 70/Hypromellose [Artificial Tears] 1 each OP BID 07/29/19 Dimethyl Fumarate [Tecfidera] 240 mg PO DAILY 07/29/19 Docusate Sodium [Docusate 100 mg] 100 mg PO HS 07/29/19 Mirtazapine 30 mg PO HS 07/29/19 Quetiapine Fumarate [Seroquel -] 25 mg PO BID 07/29/19 *Physical Exam - Vital Signs Last Vital Signs Temp Pulse Resp BP Pulse Ox 98.2 F 90 16 127/77 97 07/29/19 01:25 07/29/19 01:25 07/29/19 01:25 07/29/19 01:25 07/29/19 01:25 <Rose Marie Bowens - Last Filed: 07/29/19 20:59> - Vital Signs Last Vital Signs Temp Pulse Resp BP Pulse Ox 98.2 F 90 16 127/77 97 07/29/19 01:25 07/29/19 01:25 07/29/19 01:25 07/29/19 01:25 07/29/19 01:25 <Magaly Mccrary - Last Filed: 07/29/19 21:03> ED Treatment Course - Medications Given in the ED: ED Medications Discontinued Medications Generic Name Dose Route Start Last Admin Trade Name Elicia PRN Reason Stop Dose Admin Acetaminophen 650 mg 07/29/19 02:56 07/29/19 03:02 Tylenol - PO 07/29/19 02:57 650 mg ONCE ONE Administration <Magaly Mccrary - Last Filed: 07/29/19 21:03> Discharge - Discharge Information Problems reviewed: Yes - Admission No <Rose Marie Bowens - Last Filed: 07/29/19 20:59> <Magaly Mccrary - Last Filed: 07/29/19 21:03> - Discharge Information Clinical Impression/Diagnosis: Fall, Back pain Condition: Stable Disposition: HOME - Follow up/Referral Referrals: Gael Arizmendi MD [Primary Care Provider] - - Patient Discharge Instructions Patient Printed Discharge Instructions: How to Prevent Falls Additional Instructions: You were seen in the ED for complaints of back pain after a fall In the ED you were evaluated with XR and your results did not show acute pathology There does not appear to be an acute need for immediate hospitalization. You are advised to follow up with your Primary Care Physician within 1 week. Take Tylenol and Motrin for pain Return to the ED immediately if you experience worsening headache, neck pain, loss of consciousness or any other concerning symptoms - Post Discharge Activity
[2019-07-29] MEDS ORDERED: ACETAMINOPHEN 325 MG TABLET (FP) PO ONE (02:56)
[2019-07-29] MEDS ORDERED: ACETAMINOPHEN 325 MG TABLET (FP) ONE (02:58)
== END 2019-07-29 04:51 | disposition home or self-care (01) ==
LOC: JER 01:15
DX: M54.6 Pain in thoracic spine (principal); W19.XXXA Unspecified fall, initial encounter; Y93.89 Activity, other specified; Y92.89 Other specified places as the place of occurrence of the external cause; Y99.8 Other external cause status; I10 Essential (primary) hypertension; Z88.0 Allergy status to penicillin
CPT/HCPCS: 72070-TC-FY; 72100-TC-FY; 99282-25

== ENCOUNTER 2019-09-04 18:27 | Inpatient (IN) | payer OTHER ==
[2019-09-04] MEDS ORDERED: SODIUM CHLORIDE 1,497 ML IV ONE (19:53)
[2019-09-04] MEDS ORDERED: ACETAMINOPHEN 1000 MG/100 ML VIAL (NON FORMULARY) IVPB ONE (19:57)
--- NOTE | 2019-09-04 19:57 | PDOC ---
History of Present Illness - General Chief Complaint: SIRS, Suspected/Possible Stated Complaint: FEVER Time Seen by Provider: 09/04/19 19:24 - History of Present Illness Initial Comments: Ms. Rousseau is a 63 y/o female with PMH significant for MS, anxiety, depression, schizoaffective disorder, peripheral neuropathy, sent in by assisted living facility for hyperventilation and disorientation this afternoon. Patient is unsure why she is here. [facility] she was noted to be tachypneic and disoriented which appears changed from her baseline. No changes in meds. Pt is A&Ox3 at bedside. No chest pain. No headache. No abdominal pain. No shortness of breath. No leg swelling. No dysuria or diarrhea. Past History - Past Medical History Allergies/Adverse Reactions: Allergies Allergy/AdvReac Type Severity Reaction Status Date / Time Penicillins Allergy Mild Rash Verified 09/04/19 18:58 Home Medications: Ambulatory Orders Acetaminophen 325 mg PO PRN 07/29/19 Aspirin 81 mg PO DAILY 07/29/19 Atorvastatin Ca [Lipitor] 40 mg PO HS 07/29/19 Clonazepam 1 mg PO QID 07/29/19 Dextran 70/Hypromellose [Artificial Tears] 1 each OP BID 07/29/19 Dimethyl Fumarate [Tecfidera] 240 mg PO DAILY 07/29/19 Docusate Sodium [Docusate 100 mg] 100 mg PO HS 07/29/19 Mirtazapine 30 mg PO HS 07/29/19 Quetiapine Fumarate [Seroquel -] 25 mg PO BID 07/29/19 COPD: No HTN: Yes - Surgical History Appendectomy: Yes - Immunization History Td Vaccination: No Immunization Up to Date: Yes - Psycho Social/Smoking Cessation Hx Smoking History: Never smoked Have you smoked in the past 12 months: No Information on smoking cessation initiated: No Hx Alcohol Use: No Drug/Substance Use Hx: No Substance Use Type: None Hx Substance Use Treatment: No Review of Systems - Review of Systems Comments:: GENERAL/CONSTITUTIONAL: Reports fever. HEAD, EYES, EARS, NOSE AND THROAT: No change in vision. No change in hearing. No sore throat._ CARDIOVASCULAR: No chest pain or shortness of breath. Reports hyperventilation. RESPIRATORY: Denies cough, hemoptysis. Positive for tachypnea. GASTROINTESTINAL: No nausea, vomiting, diarrhea or constipation._ GENITOURINARY: No dysuria, frequency, or change in urination._ MUSCULOSKELETAL: No joint or muscle swelling or pain. No neck or back pain._ SKIN: No rash_ NEUROLOGIC: No headache, vertigo, or change in strength/sensation._ ENDOCRINE: No increased thirst. No abnormal weight change_ HEMATOLOGIC/LYMPHATIC: No anemia, easy bleeding, or history of blood clots._ ALLERGIC/IMMUNOLOGIC: No hives or skin allergy._ *Physical Exam - Vital Signs Last Vital Signs Temp Pulse Resp BP Pulse Ox 101.3 F H 118 H 20 136/79 98 09/04/19 19:02 09/04/19 19:02 09/04/19 19:02 09/04/19 19:09/04/19 19:02 - Physical Exam GENERAL: Awake, alert, and oriented to person/place/time, in no acute distress_ HEAD: No signs of trauma, normoc ephalic, atraumatic _ EYES: PERRLA, EOMI, sclera anicteric, conjunctiva clear_ ENT: Hearing grossly normal, nares patent, oropharynx clear without exudates. No uvular deviation. Moist mucosa_ NECK: Normal ROM, supple, no lymphadenopathy, JVD, or masses_ LUNGS: No distress, speaks in full sentences, clear to auscultation bilaterally _ HEART: Regular rate and rhythm, normal S1 and S2, no murmurs appreciated, peripheral pulses normal and equal bilaterally._ ABDOMEN: Soft, nontender, normoactive bowel sounds. No guarding, no rebound. No masses_ EXTREMITIES: Normal inspection, Normal range of motion, no edema. No clubbing or cyanosis_ NEUROLOGICAL: CN II-XII tested and intact. Sensation intact to sharp/dull differentiation in all extremities. Motor: Normal tone and bulk. No abnormal movements appreciated. No pronator drift. Strength tested and 5/5 in bilateral wrist flexion/extension, elbow flexion/extension, shoulder abduction, straight leg raise, knee flexion/ extension, ankle dorsiflexion/plantarflexion. Patient ambulates with a steady gait. Coordination: Finger to nose and heel to burrell testing intact bilaterally. SKIN: Warm, Dry, normal turgor, no rashes or lesions noted_ ED Treatment Course - LABORATORY CBC & Chemistry Diagram: 09/04/19 20:10 09/04/19 20:10 - RADIOLOGY Radiology Studies Ordered: Category Date Time Status CHEST X-RAY PORTABLE* [RAD] Stat Radiology 09/04/19 19:53 Ordered Medical Decision Making - Medical Decision Making 09/04/19 20:07 63F hx of MS, depression, anxiety, sent in from assisted living for tachypnea and disorientation. Pt A&Ox3 with no complaints except for back pain which she has had before. Sepsis work up initiated. 09/04/19 22:29 Labs reviewed. Start on levaquin and vanc. Laboratory Tests 09/04/19 09/04/19 09/04/19 19:57 20:05 20:10 WBC RBC Hgb Hct MCV MCH MCHC RDW Plt Count MPV Absolute Neuts (auto) Neutrophils % Lymphocytes % Monocytes % Eosinophils % Basophils % Nucleated RBC % PT with INR 11.70 INR 0.99 PTT (Actin FS) 32.3 VBG pH 7.42 H POC VBG pCO2 48.4 POC VBG pO2 < 49 H VBG HCO3 31.0 H VBG O2 Sat (Alber) 44.1 L VBG Base Excess 5.9 H Sodium Potassium Chloride Carbon Dioxide Anion Gap BUN Creatinine Est GFR (CKD-EPI)AfAm Est GFR (CKD-EPI)NonAf Random Glucose Lactic Acid 1.2 Calcium Total Bilirubin AST ALT Alkaline Phosphatase Troponin I Total Protein Albumin 09/04/19 09/04/19 20:10 20:10 WBC 7.9 RBC 4.26 Hgb 13.2 Hct 39.6 MCV 92.9 MCH 30.9 MCHC 33.3 RDW 14.6 Plt Count 340 MPV 7.5 Absolute Neuts (auto) 6.9 Neutrophils % 86.7 H D Lymphocytes % 4.8 L D Monocytes % 8.3 Eosinophils % 0.0 D Basophils % 0.2 Nucleated RBC % 0 PT with INR INR PTT (Actin FS) VBG pH POC VBG pCO2 POC VBG pO2 VBG HCO3 VBG O2 Sat (Alber) VBG Base Excess Sodium 142 Potassium 3.6 Chloride 106 Carbon Dioxide 31 Anion Gap 5 L BUN 20.2 H Creatinine 0.6 Est GFR (CKD-EPI)AfAm 112.43 Est GFR (CKD-EPI)NonAf 97.01 Random Glucose 106 Lactic Acid Calcium 9.3 Total Bilirubin 0.2 AST 15 ALT 29 Alkaline Phosphatase 93 Troponin I < 0.02 Total Protein 7.0 Albumin 3.9 09/04/19 23:19 Urine studies reviewed. Urine Test Results Urine Color Yellow 09/04/19 22:30 Urine Appearance Clear 09/04/19 22:30 Urine pH 6.0 (5.0-8.0) 09/04/19 22:30 Ur Specific [place] 1.027 (1.010-1.035) 09/04/19 22:30 Urine Protein 1+ (NEGATIVE) H 09/04/19 22:30 Urine Glucose (UA) Trace (NEGATIVE) 09/04/19 22:30 Urine Ketones 4+ (NEGATIVE) H 09/04/19 22:30 Urine Blood Negative (NEGATIVE) 09/04/19 22:30 Urine Nitrite Positive (NEGATIVE) H 09/04/19 22:30 Urine Bilirubin Negative (NEGATIVE) 09/04/19 22:30 Ur Leukocyte Esterase Negative (NEGATIVE) 09/04/19 22:30 09/04/19 23:52 D/w Dr. Dawson who accepts the patient for admission under Dr. Gomez. Discharge - Discharge Information Problems reviewed: Yes Clinical Impression/Diagnosis: Sepsis UTI (urinary tract infection) Qualifiers: Urinary tract infection type: acute cystitis Hematuria presence: without hematuria Qualified Code(s): N30.00 - Acute cystitis without hematuria Condition: Stable - Admission Yes - Follow up/Referral - Patient Discharge Instructions - Post Discharge Activity
[2019-09-04] MEDS ORDERED: ACETAMINOPHEN INJECTION 100 ML IVPB ONE (20:39)
[2019-09-04 20:53] LABS: VENOUS PC02 48.4 mmHg (38-52); VENOUS PH 7.42 (7.31-7.41)
[2019-09-04] MEDS ORDERED: VANCOMYCIN 1,000 MG in DEXTROSE 5%-WATER - 250 ML IVPB ONE (20:53)
[2019-09-04 20:56] LABS: BASO % 0.2 % (0-2.0); HEMATOCRIT 39.6 % (32.4-45.2); HEMOGLOBIN 13.2 GM/dL (10.7-15.3); LYMPH % 4.8 % (8-40); MCH 30.9 pg (25.7-33.7); MCHC 33.3 g/dl (32.0-36.0); MEAN CELL VOLUME 92.9 fl (80-96); MEAN PLT VOLUME 7.5 fl (7.5-11.1); MONO % 8.3 % (3.8-10.2); NEUT % 86.7 % (42.8-82.8); PLATELET COUNT 340 K/MM3 (134-434); RBC 4.26 M/mm3 (3.60-5.2); RDW 14.6 % (11.6-15.6); WHITE BLOOD COUNT 7.9 K/mm3 (4.0-10.0)
--- NOTE | 2019-09-04 20:57 | PDOC ---
Attending Attestation - Resident Resident Name: Jono Mcclain - ED Attending Attestation I have performed the following: I have examined & evaluated the patient, The case was reviewed & discussed with the resident, I agree w/resident's findings & plan, Exceptions are as noted - HPI HPI: 09/04/19 20:52 63yoF w/ MS presents after found down at assisted living facility. Pt is a very poor historian, minimally cooperative with examination, seems to be baseline per prior charts. Only complaint is "I fell" and denies feeling unwell. Found to have fever to 101.3F on traige. ROS globally negative except for "I fell" and low back pain -- both of which are chronic recurrent complaints for this patient. - Physicial Exam PE: 09/04/19 20:54 NAD, lies still in stretcher with eyes closed MM slight dry tachy, no m/r/g CTABL soft NTND no edema no bruising/abrasion/laceration A&O x 3 - Medical Decision Making 09/04/19 20:55 63yoF w/ MS and poor health literacy presents after found down at assisted living facility, found to have fevers and tachycardia upon ED arrival concerning for sepsis. - labs - cultures - ua/ucx - RPP - CXR - sxs control - ivf - abx - admit.
[2019-09-04 21:09] LABS: INR 0.99 (0.83-1.09); PROTHROMBIN TIME (PATIENT) 11.7 SEC (9.7-13.0)
[2019-09-04 21:12] LABS: ACTIVATED PTT 32.3 SECONDS (25.2-36.5)
[2019-09-04 21:33] LABS: VENOUS PO2 < 49 mmHg (28-48)
[2019-09-04 21:47] LABS: ALBUMIN 3.9 g/dl (3.4-5.0); ALK PHOS 93 U/L (45-117); ANION GAP 5 MMOL/L (8-16); BILIRUBIN,TOTAL 0.2 mg/dL (0.2-1); BLOOD UREA NITROGEN 20.2 mg/dL (7-18); CALCIUM 9.3 mg/dL (8.5-10.1); CHLORIDE 106 mmol/L (98-107); CO2 31 mmol/L (21-32); CREATININE 0.6 mg/dL (0.55-1.3); GLUCOSE,RANDOM 106 mg/dL (74-106); POTASSIUM 3.6 mmol/L (3.5-5.1); SGOT/AST 15 U/L (15-37); SGPT/ALT 29 U/L (13-61); SODIUM 142 mmol/L (136-145)
[2019-09-04 22:51] LABS: EPI CELLS 0.5 /HPF (0-5/HPF); HYALINE CASTS 26 /lpf (0-8); URINE APPEARANCE CLEAR; URINE BACTERIA 6831.1 /hpf (NEGATIVE); URINE BILIRUBIN NEGATIVE (NEGATIVE); URINE COLOR YELLOW; URINE GLUCOSE (UA) TRACE (NEGATIVE); URINE KETONE 4+ (NEGATIVE); URINE LEUK ESTERASE NEGATIVE (NEGATIVE); URINE NITRITE POSITIVE (NEGATIVE); URINE PROTEIN 1+ (NEGATIVE); URINE RBC 2 /hpf (0-4); URINE UROBILINOGEN 0.2 mg/dL (0.2-1.0)
[2019-09-05] MEDS ORDERED: VANCOMYCIN 1 GRAM (PRE-DOCKED) 1,000 MG/250 ML BAG IVPB ONE (00:23)
--- NOTE | 2019-09-05 00:53 | PN ---
Teaching Attending Note Name of Resident: Manuel Humphreys ATTENDING PHYSICIAN STATEMENT I saw and evaluated the patient. I reviewed the resident's note and discussed the case with the resident. I agree with the resident's findings and plan as documented. SUBJECTIVE: This is a 63 year old woman with a history of hyperlipidemia, MS, neurogenic bladder, anxiety, depression, schizoaffective disorder who was sent to the ED from [facility] assisted living because she was noted to be tachypneic and confused. The patient is a poor historian and says she is only here to see a spine surgeon because her spine hurts. Her daughter says she received a call from [facility] saying that the patient was being sent to the ED for fever. Her daughter last saw her 2 days ago and at that time, her only complaint was rib pain which she has had for a while after a fall. Her daughter also notes that she has had a cough but she is not aware if there has been sputum production. OBJECTIVE: Vital Signs Period Temp Pulse Resp BP Sys/Clemente Pulse Ox Last 24 Hr 99.5 F-101.3 F 102-118 20-25 117-136/59-79 98-98 HEART: S1S2, tachycardic LUNGS: Clear ABDOMEN: Soft, non-tender, non-distended, normal BS EXTREMITIES: No edema BACK: (+) tenderness to palpation over the lower thoracic and lumbar spine Laboratory Tests 09/04/19 09/04/19 09/04/19 19:57 20:05 20:10 WBC RBC Hgb Hct MCV MCH MCHC RDW Plt Count MPV Absolute Neuts (auto) Neutrophils % Lymphocytes % Monocytes % Eosinophils % Basophils % Nucleated RBC % PT with INR 11.70 INR 0.99 PTT (Actin FS) 32.3 VBG pH 7.42 H POC VBG pCO2 48.4 POC VBG pO2 < 49 H VBG HCO3 31.0 H VBG O2 Sat (Alber) 44.1 L VBG Base Excess 5.9 H Sodium Potassium Chloride Carbon Dioxide Anion Gap BUN Creatinine Est GFR (CKD-EPI)AfAm Est GFR (CKD-EPI)NonAf Random Glucose Lactic Acid 1.2 Calcium Total Bilirubin AST ALT Alkaline Phosphatase Troponin I Total Protein Albumin Urine Color Urine Appearance Urine pH Ur Specific [place] Urine Protein Urine Glucose (UA) Urine Ketones Urine Blood Urine Nitrite Urine Bilirubin Urine Urobilinogen Ur Leukocyte Esterase Urine RBC (Auto) Urine Casts (Auto) U Epithel Cells (Auto) Urine Bacteria (Auto) Influenza A (Rapid) Influenza B (Rapid) 09/04/19 09/04/19 09/04/19 20:10 20:10 22:30 WBC 7.9 RBC 4.26 Hgb 13.2 Hct 39.6 MCV 92.9 MCH 30.9 MCHC 33.3 RDW 14.6 Plt Count 340 MPV 7.5 Absolute Neuts (auto) 6.9 Neutrophils % 86.7 H D Lymphocytes % 4.8 L D Monocytes % 8.3 Eosinophils % 0.0 D Basophils % 0.2 Nucleated RBC % 0 PT with INR INR PTT (Actin FS) VBG pH POC VBG pCO2 POC VBG pO2 VBG HCO3 VBG O2 Sat (Alber) VBG Base Excess Sodium 142 Potassium 3.6 Chloride 106 Carbon Dioxide 31 Anion Gap 5 L BUN 20.2 H Creatinine 0.6 Est GFR (CKD-EPI)AfAm 112.43 Est GFR (CKD-EPI)NonAf 97.01 Random Glucose 106 Lactic Acid Calcium 9.3 Total Bilirubin 0.2 AST 15 ALT 29 Alkaline Phosphatase 93 Troponin I < 0.02 Total Protein 7.0 Albumin 3.9 Urine Color Yellow Urine Appearance Clear Urine pH 6.0 Ur Specific [place] 1.027 Urine Protein 1+ H Urine Glucose (UA) Trace Urine Ketones 4+ H Urine Blood Negative Urine Nitrite Positive H Urine Bilirubin Negative Urine Urobilinogen 0.2 Ur Leukocyte Esterase Negative Urine RBC (Auto) 2 Urine Casts (Auto) 26 U Epithel Cells (Auto) 0.5 Urine Bacteria (Auto) 6831.1 Influenza A (Rapid) Influenza B (Rapid) 09/04/19 22:40 WBC RBC Hgb Hct MCV MCH MCHC RDW Plt Count MPV Absolute Neuts (auto) Neutrophils % Lymphocytes % Monocytes % Eosinophils % Basophils % Nucleated RBC % PT with INR INR PTT (Actin FS) VBG pH POC VBG pCO2 POC VBG pO2 VBG HCO3 VBG O2 Sat (Alber) VBG Base Excess Sodium Potassium Chloride Carbon Dioxide Anion Gap BUN Creatinine Est GFR (CKD-EPI)AfAm Est GFR (CKD-EPI)NonAf Random Glucose Lactic Acid Calcium Total Bilirubin AST ALT Alkaline Phosphatase Troponin I Total Protein Albumin Urine Color Urine Appearance Urine pH Ur Specific [place] Urine Protein Urine Glucose (UA) Urine Ketones Urine Blood Urine Nitrite Urine Bilirubin Urine Urobilinogen Ur Leukocyte Esterase Urine RBC (Auto) Urine Casts (Auto) U Epithel Cells (Auto) Urine Bacteria (Auto) Influenza A (Rapid) Negative Influenza B (Rapid) Negative Home Medications Medication Instructions Recorded Acetaminophen 325 mg PO PRN 07/29/19 Aspirin 81 mg PO DAILY 07/29/19 Atorvastatin Ca [Lipitor] 40 mg PO HS 07/29/19 Clonazepam 1 mg PO QID 07/29/19 Dextran 70/Hypromellose 1 each OP BID 07/29/19 [Artificial Tears] Dimethyl Fumarate [Tecfidera] 240 mg PO DAILY 07/29/19 Docusate Sodium [Docusate 100 mg] 100 mg PO HS 07/29/19 Mirtazapine 30 mg PO HS 07/29/19 Quetiapine Fumarate [Seroquel -] 25 mg PO BID 07/29/19 ASSESSMENT AND PLAN: This is a 63 year old woman with a history of hyperlipidemia, MS, neurogenic bladder, anxiety, depression, schizoaffective disorder who presented to the ED from [facility] living with fever, cough, and back pain. 1. SIRS (fever, tachypnea, tachycardia), suspect sepsis - No evidence of pneumonia on exam, CXR - Influenza A/B negative - Possible UTI - UA (+) nitrite, (-) leuk esterase, WBC not reported, bacteria 6831 - Spinal tenderness present on exam - Levaquin, vancomycin given in ED - Change Levaquin to aztreonam (prolonged QTc) - Penicillin allergy noted to be rash - was not documented on last admission and patient tolerated Keflex while in hospital - IV fluid - Repeat CXR in am - Follow-up blood, urine cultures - Imaging of T-spine, L-spine 2. Prolonged QTc - Likely secondary to Seroquel, Remeron - Avoid additional QT prolonging agents - Repeat EKG in am 3. Hyperlipidemia - Continue Lipitor 4. Neurogenic bladder with urinary retention - Watch for retention 5. Multiple sclerosis - Continue Tecfidera 6. Schizoaffective disorder, depression, anxiety - Continue clonazepam, Seroquel, Remeron
--- NOTE | 2019-09-05 01:17 | HP ---
CHIEF COMPLAINT: Sent from [facility] after she was found to be tachypnic with a fever of 103 PCP: Dr. Crystal HISTORY OF PRESENT ILLNESS: This is a 63 year old female, resident at [facility]), with PMH of MS, anxiety, schizoaffective disorder, dementia, and depression. Daughter is present at bedside to assist with history taking and examination. She was sent to the ER from [facility] after she was found to be tachypnic with a fever (daughter states she thinks she was told 103, may have been 101.3). The patient states she fell down today, although the daughter says that she has been saying this for the past several weeks, and there have been no reports from the [place] about any falls today. Patient only endorses spinal pain in lower thoracic and lumbar region, which she has had for "a while", and states that she "wants to see a security incident response specialist". She denies any fevers, chills, nausea, vomiting, diarrhea, abdominal pain, chest pain, palpitations, dizziness, light headedness, dysuria, polyuria, or hematuria. As per daughter, the patient has had a dry cough for the past 2 weeks. She was diagnosed with MS in November 2017, and is currently on Tecfidera. In May 2019, she began to develop dementia. She is AOx3, and recognizes her daughter, but struggles with short term memory recollection and is unable to answer questions in detail. She was admitted to [facility] in on 07/22/19 for a UTI and a fall, and multiple scans found no evidence of any fractures, and cultures were negative. She also had a brain MRi which sowed demyelinating disease with no evidence of infarction. As per the daughter, the patient has seen 3 neurologists over the past few months, and her falls have been attributed to MS. ER course was notable for: (1) UA 1+ protein, 4+ ketones, nitrite + (2) Qtc 527 (3) Given Levaquin 750, N/S 1.5L, and Tylenol 1g Recent Travel: denies PAST MEDICAL HISTORY: See HPI PAST SURGICAL HISTORY: none Social History: Smoking: none Alcohol: occasionally Drugs: none Allergies Penicillins Allergy (Mild, Verified 09/04/19 18:58) Rash HOME MEDICATIONS: Home Medications Medication Instructions Recorded Acetaminophen 325 mg PO PRN 07/29/19 Aspirin 81 mg PO DAILY 07/29/19 Atorvastatin Ca [Lipitor] 40 mg PO HS 07/29/19 Clonazepam 1 mg PO QID 07/29/19 Dextran 70/Hypromellose 1 each OP BID 07/29/19 [Artificial Tears] Dimethyl Fumarate [Tecfidera] 240 mg PO DAILY 07/29/19 Docusate Sodium [Docusate 100 mg] 100 mg PO HS 07/29/19 Mirtazapine 30 mg PO HS 07/29/19 Quetiapine Fumarate [Seroquel -] 25 mg PO BID 07/29/19 REVIEW OF SYSTEMS CONSTITUTIONAL: Absent: fever, chills, diaphoresis, generalized weakness, malaise, loss of appetite, weight change HEENT: Absent: rhinorrhea, nasal congestion, throat pain, throat swelling, difficulty swallowing, mouth swelling, ear pain, eye pain, visual changes CARDIOVASCULAR: Absent: chest pain, syncope, palpitations, irregular heart rate, lightheadedness , peripheral edema RESPIRATORY: cough Absent: cough, shortness of breath, dyspnea with exertion, orthopnea, wheezing, stridor, hemoptysis GASTROINTESTINAL: Absent: abdominal pain, abdominal distension, nausea, vomiting, diarrhea, constipation, melena, hematochezia GENITOURINARY: Absent: dysuria, frequency, urgency, hesitancy, hematuria, flank pain, genital pain MUSCULOSKELETAL: back pain Absent: myalgia, arthralgia, joint swelling, back pain, neck pain SKIN: Absent: rash, itching, pallor HEMATOLOGIC/IMMUNOLOGIC: Absent: easy bleeding, easy bruising, lymphadenopathy, frequent infections ENDOCRINE: Absent: unexplained weight gain, unexplained weight loss, heat intolerance, cold intolerance NEUROLOGIC: Absent: headache, focal weakness or paresthesias, dizziness, unsteady gait, seizure, mental status changes, bladder or bowel incontinence PSYCHIATRIC: Absent: anxiety, depression, suicidal or homicidal ideation, hallucinations. PHYSICAL EXAMINATION Vital Signs - 24 hr 09/04/19 09/04/19 09/04/19 19:02 20:40 22:30 Temperature 101.3 F H 99.5 F Pulse Rate 118 H Pulse Rate [ 102 H Apical] Respiratory 20 25 H Rate Blood Pressure 136/79 Blood Pressure 117/59 L [Left Arm] O2 Sat by Pulse 98 98 Oximetry (%) GENERAL: AOx3 HEAD: Normal with no signs of trauma. EYES: Pupils equal, round and reactive to light, extraocular movements intact, sclera anicteric, conjunctiva clear. No lid lag. EARS, NOSE, THROAT: Ears normal, nares patent, oropharynx clear without exudates. Moist mucous membranes. NECK: Normal range of motion, supple without lymphadenopathy, JVD, or masses. LUNGS: Decreased sounds equal, clear to auscultation bilaterally. No wheezes, and no crackles. No accessory muscle use. HEART: Regular rate and rhythm, normal S1 and S2 without murmur, rub or gallop. ABDOMEN: Soft, nontender, not distended, normoactive bowel sounds, no guarding, no rebound, no masses. No hepatomegaly or splenomegaly. MUSCULOSKELETAL: spinal and paraspinal tenderness in lower thoracic and lumbar vertebrae UPPER EXTREMITIES: 2+ pulses, warm, well-perfused. No cyanosis. No clubbing. No peripheral edema. LOWER EXTREMITIES: 2+ pulses, warm, well-perfused. No calf tenderness. No peripheral edema. NEUROLOGICAL: Cranial nerves II-XII intact. Normal speech PSYCHIATRIC: Flat affect, answers questions with single word sentences SKIN: Warm, dry, normal turgor, no rashes or lesions noted, normal capillary refill. Laboratory Results - last 24 hr 09/04/19 09/04/19 09/04/19 19:57 20:05 20:10 WBC RBC Hgb Hct MCV MCH MCHC RDW Plt Count MPV Absolute Neuts (auto) Neutrophils % Lymphocytes % Monocytes % Eosinophils % Basophils % Nucleated RBC % PT with INR 11.70 INR 0.99 PTT (Actin FS) 32.3 VBG pH 7.42 H POC VBG pCO2 48.4 POC VBG pO2 < 49 H VBG HCO3 31.0 H VBG O2 Sat (Alber) 44.1 L VBG Base Excess 5.9 H Sodium Potassium Chloride Carbon Dioxide Anion Gap BUN Creatinine Est GFR (CKD-EPI)AfAm Est GFR (CKD-EPI)NonAf Random Glucose Lactic Acid 1.2 Calcium Total Bilirubin AST ALT Alkaline Phosphatase Troponin I Total Protein Albumin Urine Color Urine Appearance Urine pH Ur Specific [place] Urine Protein Urine Glucose (UA) Urine Ketones Urine Blood Urine Nitrite Urine Bilirubin Urine Urobilinogen Ur Leukocyte Esterase Urine RBC (Auto) Urine Casts (Auto) U Epithel Cells (Auto) Urine Bacteria (Auto) Influenza A (Rapid) Influenza B (Rapid) 09/04/19 09/04/19 09/04/19 20:10 20:10 22:30 WBC 7.9 RBC 4.26 Hgb 13.2 Hct 39.6 MCV 92.9 MCH 30.9 MCHC 33.3 RDW 14.6 Plt Count 340 MPV 7.5 Absolute Neuts (auto) 6.9 Neutrophils % 86.7 H D Lymphocytes % 4.8 L D Monocytes % 8.3 Eosinophils % 0.0 D Basophils % 0.2 Nucleated RBC % 0 PT with INR INR PTT (Actin FS) VBG pH POC VBG pCO2 POC VBG pO2 VBG HCO3 VBG O2 Sat (Alber) VBG Base Excess Sodium 142 Potassium 3.6 Chloride 106 Carbon Dioxide 31 Anion Gap 5 L BUN 20.2 H Creatinine 0.6 Est GFR (CKD-EPI)AfAm 112.43 Est GFR (CKD-EPI)NonAf 97.01 Random Glucose 106 Lactic Acid Calcium 9.3 Total Bilirubin 0.2 AST 15 ALT 29 Alkaline Phosphatase 93 Troponin I < 0.02 Total Protein 7.0 Albumin 3.9 Urine Color Yellow Urine Appearance Clear Urine pH 6.0 Ur Specific [place] 1.027 Urine Protein 1+ H Urine Glucose (UA) Trace Urine Ketones 4+ H Urine Blood Negative Urine Nitrite Positive H Urine Bilirubin Negative Urine Urobilinogen 0.2 Ur Leukocyte Esterase Negative Urine RBC (Auto) 2 Urine Casts (Auto) 26 U Epithel Cells (Auto) 0.5 Urine Bacteria (Auto) 6831.1 Influenza A (Rapid) Influenza B (Rapid) 09/04/19 22:40 WBC RBC Hgb Hct MCV MCH MCHC RDW Plt Count MPV Absolute Neuts (auto) Neutrophils % Lymphocytes % Monocytes % Eosinophils % Basophils % Nucleated RBC % PT with INR INR PTT (Actin FS) VBG pH POC VBG pCO2 POC VBG pO2 VBG HCO3 VBG O2 Sat (Alber) VBG Base Excess Sodium Potassium Chloride Carbon Dioxide Anion Gap BUN Creatinine Est GFR (CKD-EPI)AfAm Est GFR (CKD-EPI)NonAf Random Glucose Lactic Acid Calcium Total Bilirubin AST ALT Alkaline Phosphatase Troponin I Total Protein Albumin Urine Color Urine Appearance Urine pH Ur Specific [place] Urine Protein Urine Glucose (UA) Urine Ketones Urine Blood Urine Nitrite Urine Bilirubin Urine Urobilinogen Ur Leukocyte Esterase Urine RBC (Auto) Urine Casts (Auto) U Epithel Cells (Auto) Urine Bacteria (Auto) Influenza A (Rapid) Negative Influenza B (Rapid) Negative ASSESSMENT/PLAN: 63F with PMH of MS, anxiety, schizoaffective disorder, dementia, and depression sent from [facility] after she was found to be tachypnic with a fever of 103. Admitted for management of Sepsis. #Sepsis - SIRS 3/4 (Temp 101.3, HR 102, RR 25) - WBC 7.9 but elevated Neutrophils. Tecfidera may cause leukopenia - UA 1+ protein, 4+ ketones, nitrite + - CXR: increased interstitial markings as compared to CXR in Jul 20 - Influenza A/B negative - Urinary source may be possible, but UA is not very convincing, other sources must be ruled out - Will start on Aztreonam 500mg BID (No ceftriaxone due to penicillin allergy, no levofloxacin due to Qtc of 521) - Blood, urine cx, urine for strep and legionella ordered - Pt complaining of pain in spine, spinal tenderness on examination, should r/o abscess - CT spine lumbar + thoracic ordered to r/o abscess. Preliminary reports shows no abscess, 2.5 cm rt lobe mass, L3, L4 stenosis, dilated GD, rt renal cyst - CT head ordered due to possible fall. No fx or bleed on preliminary report, shows air bubble on scalp #Hx of MS - Continue Tecfidera #Hx of urinary retention - Will monitor for urinary output and scan bladder if output is low #Hx of schizoaffective disorder - Continue clonazepam, Seroquel, Remeron (may be causing prolonged Qtc) #Hx of Hyperlipidemia - Continue Lipitor Visit type - Emergency Visit Emergency Visit: Yes ED Registration Date: 09/04/19 Care time: The patient presented to the Emergency Department on the above date and was hospitalized for further evaluation of their emergent condition. - New Patient This patient is new to me today: Yes Date on this admission: 09/05/19 - Critical Care Critical Care patient: No ATTENDING PHYSICIAN STATEMENT I saw and evaluated the patient. I reviewed the resident's note and discussed the case with the resident. I agree with the resident's findings and plan as documented. SUBJECTIVE: OBJECTIVE: ASSESSMENT AND PLAN:
[2019-09-05] MEDS ORDERED: ACETAMINOPHEN 325 MG TABLET (FP) PO SCH (01:45)
[2019-09-05] MEDS ORDERED: AZTREONAM 0.5 GM in DEXTROSE 5%-WATER - 50 ML IVPB SCH ×2 (02:15→22:00)
[2019-09-05] MEDS: LACTATED RINGERS SOLUTION 1,000 ML/1,000 ML INFUS.BAG IV SCH (07:25)
--- NOTE | 2019-09-05 09:24 | EKG ---
Test Reason : Blood Pressure : / mmHG Vent. Rate : 112 BPM Atrial Rate : 112 BPM P-R Int : 134 ms QRS Dur : 132 ms QT Int : 386 ms P-R-T Axes : 066 075 058 degrees QTc Int : 526 ms SINUS TACHYCARDIA RIGHT BUNDLE BRANCH BLOCK LEFT VENTRICULAR HYPERTROPHY WITH REPOLARIZATION ABNORMALITY ABNORMAL ECG WHEN COMPARED WITH ECG OF 22-JUL-2019 09:18, NO SIGNIFICANT CHANGE WAS FOUND Confirmed by Jono Mabry MD ([id number]) on 09/05/2019 9:24:25 AM Referred By: Confirmed By:Jono Mabry MD
--- NOTE | 2019-09-05 09:24 | EKG ---
Test Reason : Blood Pressure : / mmHG Vent. Rate : 110 BPM Atrial Rate : 110 BPM P-R Int : 134 ms QRS Dur : 132 ms QT Int : 390 ms P-R-T Axes : 067 071 042 degrees QTc Int : 527 ms SINUS TACHYCARDIA RIGHT BUNDLE BRANCH BLOCK ABNORMAL ECG WHEN COMPARED WITH ECG OF 04-SEP-2019 18:59, NO SIGNIFICANT CHANGE WAS FOUND Confirmed by Jono Mbary MD ([id number]) on 09/05/2019 9:24:15 AM Referred By: Confirmed By:oJno Mabry MD
[2019-09-05] MEDS: clonazePAM 0.5 MG TABLET PO SCH ×4 (09:51→21:49)
[2019-09-05] MEDS: QUEtiapine FUMARATE 25 MG TABLET PO SCH ×2 (09:51→21:49)
[2019-09-05] MEDS: ASPIRIN 81 MG CHEWABLE TABLETS PO SCH (09:51)
[2019-09-05] MEDS: ARTIFICIAL TEARS (POLYVINYL ALCOHOL) OPTH DROPS OU SCH ×2 (09:51→21:51)
[2019-09-05] MEDS ORDERED: PATIENT'S OWN MEDICATION (NON-FORMULARY) (Dimethyl Fumarate [Tecfidera] 240 MG) PO SCH (10:00)
--- NOTE | 2019-09-05 10:43 | PN ---
Progress Note (short form) - Note Progress Note: ID CONSULT DICTATED SEPSIS POSSIBLE LUNG V. URINARY TRACT SOURCE EXACERBATION MS PCN ALLERGY AWAIT C/S EMPIRIC CEFTRIAXONE
--- NOTE | 2019-09-05 11:17 | CONS ---
INFECTIOUS DISEASE CONSULTATION DATE OF CONSULTATION: 09/05/2019 HISTORY: The patient is a 63-year-old female with a history of multiple sclerosis who was evaluated for fever. The history was obtained primarily from the chart and the patient's daughter, who is present at the time of the examination. The patient does not give a reliable history. She is a resident of an assisted living complex. She was admitted to the hospital on September 04, 2019, with reports of altered mental status and hyperventilation. She was evaluated in the emergency room where she was noted to have a fever to 101.3. Cultures were obtained. She was empirically treated with vancomycin and Azactam for possible infection. The patient does not offer a reliable history. She denies any pain. No complaints of chest pain, shortness of breath, cough, or sputum production. Denies dysuria or hematuria. She is a resident of an assisted living complex. No reports of any ill contacts. No recent travel. She is a nonsmoker. No recent hospitalizations. No recent antibiotic usage. She reports receiving influenza and pneumococcal vaccines. No reports of vomiting or diarrhea, grossly purulent urine, or infected decubitus ulcers. The patient is apparently incontinent of urine. No documented history of neurogenic bladder. PAST MEDICAL HISTORY: Positive for multiple sclerosis, anxiety, depression, schizophrenia, peripheral neuropathy. ALLERGIES: PENICILLIN. The daughter reports that she had developed a rash many years ago. No history of anaphylaxis. MEDICATIONS: Include aspirin, Lipitor, clonazepam. SOCIAL HISTORY: She resides in an assisted living complex. Nonsmoker. Nondrinker. SYSTEMS REVIEW: Neurologic: As per HPI. No loss of consciousness, seizure activity, or focal weakness. Cardiac: Negative chest pain or palpitations. Respiratory: As per HPI. Gastrointestinal: Negative vomiting or diarrhea. Genitourinary: Negative for urinary tract infection. LABORATORY DATA: White count 7.9, hematocrit 39.6, platelet count 340, creatinine 0.6. Liver enzymes normal. Urinalysis negative. Influenza swab negative. Cultures are pending. Chest x-ray shows some increased markings at the bases bilaterally officially read as negative. PHYSICAL EXAMINATION: General: She is awake and alert. She is in no acute distress. She is supine in bed. Not acutely toxic appearing. Breathing is nonlabored. Vital Signs: Temperature 100.4, maximum temperature 101.3, blood pressure 133/69, pulse 98 regular, respirations 28 per minute. Neck: Supple. No palpable nodes. Heart: Sounds S1, S2. Lungs: Grossly clear. Poor inspiratory effort. Abdomen: Soft. No tenderness elicited. No suprapubic tenderness. Extremities: 1+ edema. IMPRESSION: 1. Fever, rule out sepsis. 2. Acute exacerbation multiple sclerosis. 3. PENICILLIN allergy. 4. Prolonged QT interval. IMPRESSION: Source of fever not clear. We will await cultures. Await urine Legionella and pneumococcal antigens. Potential sources include respiratory tract infection versus urinary tract. We will empirically treat in this patient with PENICILLIN allergy with ceftriaxone 2 g IV piggyback daily. We will obtain respiratory viral panel. Case discussed with patient's daughter present at the time of the examination. Thank you for the kind referral. SINDI DAVID M.D. [id number]
[2019-09-05] MEDS ORDERED: DEXTROSE 5%-WATER 100 ML IVPB ONE (12:07)
[2019-09-05] MEDS: CEFTRIAXONE 2 GM in DEXTROSE 5%-WATER 100 ML IVPB SCH (12:12)
--- NOTE | 2019-09-05 14:54 | EKG ---
Test Reason : Blood Pressure : / mmHG Vent. Rate : 099 BPM Atrial Rate : 099 BPM P-R Int : 126 ms QRS Dur : 122 ms QT Int : 376 ms P-R-T Axes : 064 068 045 degrees QTc Int : 482 ms SINUS RHYTHM WITH PREMATURE SUPRAVENTRICULAR COMPLEXES RIGHT BUNDLE BRANCH BLOCK ABNORMAL ECG WHEN COMPARED WITH ECG OF 04-SEP-2019 22:15, PREMATURE SUPRAVENTRICULAR COMPLEXES ARE NOW PRESENT Confirmed by Jono Mabry MD ([id number]) on 09/05/2019 2:53:51 PM Referred By: Rupert PAGE Confirmed By:Jono Mabry MD
[2019-09-05] MEDS: ATORVASTATIN CA 40 MG TABLET (FP) PO SCH (21:49)
[2019-09-05] MEDS: DOCUSATE SODIUM 100 MG CAPSULE (FP) PO SCH (21:49)
[2019-09-05] MEDS ORDERED: MIRTAZAPINE 30 MG TABLET (FP) PO SCH (22:00)
[2019-09-06] MEDS: ACETAMINOPHEN 325 MG TABLET (FP) PO PRN ×2 (03:53→20:11)
[2019-09-06] MEDS: LACTATED RINGERS SOLUTION 1,000 ML/1,000 ML INFUS.BAG IV SCH ×3 (03:54→21:28)
--- NOTE | 2019-09-06 08:13 | PN ---
Teaching Attending Note Name of Resident: Panda Dawson ATTENDING PHYSICIAN STATEMENT I saw and evaluated the patient. I reviewed the resident's note and discussed the case with the resident. I agree with the resident's findings and plan as documented. Seen and examined; please see resident note for further historical information. I personally verified all [place] historical information and exam findings. Personally interpreted all imaging and diagnostics and reviewed appropriate consults. I reviewed all labs and vital signs as per resident note and EMR as documented. I agree with the above assessment and plan unless supplemented by myself in the following. 10 item review of systems completed and is negative aside from as discussed in the subjective data in my own/the resident documentation. VS, labs, imaging reviewed NAD, AAO, resting comfortably in bed. RRR s1/2 no mgr Normal muscle tone, moves all 5 extremities with normal apparent strength Neck is supple, trachea midline, no [place] LN Lungs CTAB with sym expansion NT ND +BS no h[place] organomegaly CN2-12 wnl; no FND NC AT EOMI PERRLA Normal mood, appropriate behavior, euthymic affect No skin breakdown or rashes noted -RUQ Ultrasound reveals a slightly distended gallbladder with 2 mm polyp with 3 middle centimeter echogenic focus within the right lobe consistent with hemangioma -Chest x-ray reveals no acute change since admission with slight increase in lung markings with questionable tiny granuloma in the right midlung field. -EKG sinus rhythm with premature supraventricular complexes with a right bundle serafin block noted. -Head/C/T-Spine CT: No compression fracture low-attenuation in the right hepatic lobe that may represent cavernous hemangioma recommended dedicated CT or MRI using hemangioma protocol. No acute intracranial process. -MRCP pending Microbiology 09/04/19 22:30 Urine - Urine - Catheterized Urine Culture - Preliminary Lactose Fermenting Neg Bacilli 09/04/19 21:00 Blood - Peripheral Venous Blood Culture - Preliminary NO GROWTH OBTAINED AFTER 24 HOURS, INCUBATION TO CONTINUE FOR 4 DAYS. 09/04/19 20:10 Blood - Peripheral Venous Blood Culture - Preliminary NO GROWTH OBTAINED AFTER 24 HOURS, INCUBATION TO CONTINUE FOR 4 DAYS. Assessment and plan: Patient with a history of hyperlipidemia, MS, neurogenic bladder, schizophrenia , anxiety, depression presents from [facility] living with sepsis secondary to UTI. She is noted to have a prolonged QT interval and is on multiple psych medications. She was complaining of back pain and was found to have osteoarthritis throughout. I spoke at length with the patient's daughter today and she informed me that the patient had ongoing issues with depression over the past several months. She has been evaluated by 2 outpatient neurologists, neither with her system, and has been seen by Dr. Wong in the past here but the family requests a different opinion. This is less active than the patient has been in the past. We as an outpatient, she was started on mirtazapine, per her psychiatrist plan to transition her to an SSRI. This is not been done yet and the daughter would like it done inpatient. Thusly, neurology and psychiatry will be consulted as the patient's mentation remains altered. In terms of her infection, the patient did have a fever last night that was low-grade in nature and she has no worsening leukocytosis or signs or symptoms of sepsis. We will continue to monitor her on the floor in the medicine service with indicated consultations Problems include: -Sepsis 2/2 UTI (ID consulted; follow up recs. Continue IV abx, IVF can be DCd when stable. Lactose fermenting GNB growing on urine cx) -Right lung granuloma (Checking CT, FU PPD) -Back pain with noted Osteoarthritis (DJD changes seen throughout XR; PRN management; no need for MRI) -Schizoaffective disorder (questionable capacity; on mirtazapine, seroquel, klonopin. -Weakness (PT working with patient -Depression (Family wants to change to SSRI from mirtazapine which is being held , decreased seroqel doses) -History of MS (Obtaining OP treatment records and will discuss. Consulting Dr. Stevenson. She is weak but does not otherwise have the defining halmarks of a flare with the patient)
[2019-09-06] MEDS ORDERED: DEXTROSE 5%-WATER 100 ML IVPB ONE (09:29)
[2019-09-06 09:35] LABS: BASO % 0.3 % (0-2.0); HEMATOCRIT 31.3 % (32.4-45.2); HEMOGLOBIN 10.9 GM/dL (10.7-15.3); MCH 31.6 pg (25.7-33.7); MCHC 34.7 g/dl (32.0-36.0); MEAN CELL VOLUME 91.2 fl (80-96); MEAN PLT VOLUME 7.6 fl (7.5-11.1); NEUT % 79.7 % (42.8-82.8); PLATELET COUNT 228 K/MM3 (134-434); RBC 3.44 M/mm3 (3.60-5.2); RDW 14.9 % (11.6-15.6); WHITE BLOOD COUNT 8.6 K/mm3 (4.0-10.0)
[2019-09-06] MEDS: POLYETHYLENE GLYCOL 3350 119 GM BTL PO SCH (09:35)
[2019-09-06] MEDS: ASPIRIN 81 MG CHEWABLE TABLETS PO SCH (09:35)
[2019-09-06] MEDS: CEFTRIAXONE 2 GM in DEXTROSE 5%-WATER 100 ML IVPB SCH (09:35)
[2019-09-06] MEDS: ARTIFICIAL TEARS (POLYVINYL ALCOHOL) OPTH DROPS OU SCH ×2 (09:35→21:28)
[2019-09-06] MEDS: clonazePAM 0.5 MG TABLET PO SCH ×4 (09:35→21:24)
[2019-09-06] MEDS: QUEtiapine FUMARATE 25 MG TABLET PO SCH ×2 (09:36→21:25)
[2019-09-06 10:34] LABS: ALBUMIN 2.8 g/dl (3.4-5.0); BILIRUBIN,TOTAL 0.3 mg/dL (0.2-1); BLOOD UREA NITROGEN 9.3 mg/dL (7-18); CALCIUM 7.8 mg/dL (8.5-10.1); CREATININE 0.4 mg/dL (0.55-1.3); TOT PROT 5.3 g/dl (6.4-8.2)
--- NOTE | 2019-09-06 11:08 | PN ---
Progress Note, Physician History of Present Illness: OOB IN CHAIR DENIES CHEST PAIN/ DYSPNEA/ COUGH DENIES DYSURIA REMAINS FEBRILE BC PRELIM (-) URINE C/S LF - Current Medication List Current Medications: Active Medications Acetaminophen (Tylenol -) 650 mg PO Q6H PRN PRN Reason: FEVER Last Admin: 09/06/19 03:53 Dose: 650 mg Artificial Tears (Artificial Tears) 1 drop OU BID [facility] Last Admin: 09/06/19 09:35 Dose: 1 drop Aspirin (Asa -) 81 mg PO DAILY [facility] Last Admin: 09/06/19 09:35 Dose: 81 mg Atorvastatin Calcium (Lipitor -) 40 mg PO HS [facility] Last Admin: 09/05/19 21:49 Dose: 40 mg Clonazepam (Klonopin -) 1 mg PO QID [facility] Last Admin: 09/06/19 09:35 Dose: 1 mg Docusate Sodium (Colace -) 100 mg PO HS [facility] Last Admin: 09/05/19 21:49 Dose: 100 mg Lactated Ringer's (Lactated Ringers Solution) 1,000 ml in 1,000 mls @ 75 mls/ hr IV ASDIR [facility] Last Admin: 09/06/19 05:58 Dose: Not Given Ceftriaxone Sodium 2 gm/ (Dextrose) 100 mls @ 100 mls/hr IVPB DAILY [facility]; Protocol Last Admin: 09/06/19 09:35 Dose: 100 mls/hr Non-Formulary Medication (Dimethyl Fumarate [Tecfidera]) 240 mg PO DAILY [facility] Polyethylene Glycol (Miralax (For Daily Use) -) 17 gm PO DAILY [facility] Last Admin: 09/06/19 09:35 Dose: 17 grams Quetiapine Fumarate (Seroquel -) 25 mg PO BID [facility] Last Admin: 09/06/19 09:36 Dose: 25 mg - Objective Vital Signs: Vital Signs Temperature 99.3 F 09/06/19 09:10 Pulse Rate 78 09/06/19 09:10 Respiratory Rate 20 09/06/19 09:10 Blood Pressure 121/65 09/06/19 09:10 O2 Sat by Pulse Oximetry (%) 99 09/05/19 03:35 Constitutional: Yes: No Distress Cardiovascular: Yes: Regular Rate and Rhythm, S1, S2 Respiratory: Yes: Diminished Gastrointestinal: Yes: Normal Bowel Sounds, Soft. No: Tenderness Labs: CBC, BMP 09/06/19 08:15 09/06/19 08:15 INR, PTT INR 0.99 (0.83-1.09) 09/04/19 20:10 Assessment/Plan UTI R/O SEPSIS SECONDARY TO UTI ? PNEUMONIA EXACERBATION MS PCN ALLERGY AWAIT C/S CONTINUE CEFTRIAXONE
--- NOTE | 2019-09-06 11:31 | PN ---
Physical Exam: SUBJECTIVE: Patient seen and examined at bedside. Pt developed a fever of 102 overnight that resolved with tylenol. S/w pt's daughter regarding pt's status and our plan. OBJECTIVE: Vital Signs Period Temp Pulse Resp BP Sys/Clemente Pulse Ox Last 24 Hr 99.1 F-102 F 78-114 20-20 121-138/65-74 GENERAL: The patient is awake, alert, and fully oriented, in no acute distress. NECK: Trachea midline, full range of motion, supple. LUNGS: Breath sounds equal, clear to auscultation bilaterally, no wheezes, no crackles, no accessory muscle use. HEART: Regular rate and rhythm, S1, S2 without murmur, rub or gallop. ABDOMEN: Soft, nontender, nondistended. EXTREMITIES: 2+ pulses, warm, well-perfused, no edema. PSYCH: Normal mood, normal affect. Laboratory Results - last 24 hr 09/06/19 09/06/19 08:15 08:15 WBC 8.6 RBC 3.44 L Hgb 10.9 Hct 31.3 L D MCV 91.2 MCH 31.6 MCHC 34.7 RDW 14.9 Plt Count 228 D MPV 7.6 Absolute Neuts (auto) 6.9 Neutrophils % 79.7 Lymphocytes % 14.0 D Monocytes % 6.0 Eosinophils % 0.0 Basophils % 0.3 Nucleated RBC % 0 Sodium 141 Potassium 3.0 L Chloride 105 Carbon Dioxide 28 Anion Gap 8 BUN 9.3 Creatinine 0.4 L Est GFR (CKD-EPI)AfAm 128.47 Est GFR (CKD-EPI)NonAf 110.85 Random Glucose 79 Calcium 7.8 L Total Bilirubin 0.3 AST 19 ALT 21 Alkaline Phosphatase 64 Total Protein 5.3 L Albumin 2.8 L Active Medications Generic Name Dose Route Start Last Admin Trade Name Freq PRN Reason Stop Dose Admin Acetaminophen 650 mg 09/06/19 03:15 09/06/19 03:53 Tylenol - PO 650 mg Q6H PRN Administration FEVER Artificial Tears 1 drop 09/05/19 10:00 09/06/19 09:35 Artificial Tears OU 1 drop BID [facility] Administration Aspirin 81 mg 09/05/19 10:00 09/06/19 09:35 Asa - PO 81 mg DAILY [facility] Administration Atorvastatin Calcium 40 mg 09/05/19 22:00 09/05/19 21:49 Lipitor - PO 40 mg HS [facility] Administration Clonazepam 1 mg 09/05/19 10:00 09/06/19 09:35 Klonopin - PO 1 mg QID [facility] Administration Docusate Sodium 100 mg 09/05/19 22:00 09/05/19 21:49 Colace - PO 100 mg HS [facility] Administration Lactated Ringer's 1,000 ml in 1,000 mls @ 75 mls/hr 09/05/19 05:00 09/06/19 05:58 Lactated Ringers Solution IV Not Given ASDIR [facility] Ceftriaxone Sodium 2 gm/ 100 mls @ 100 mls/hr 09/05/19 10:45 09/06/19 09:35 Dextrose IVPB 100 mls/hr DAILY [facility] Administration Protocol Non-Formulary Medication 240 mg 09/05/19 10:00 Dimethyl Fumarate [Tecfidera] PO DAILY [facility] Polyethylene Glycol 17 gm 09/06/19 10:00 09/06/19 09:35 Miralax (For Daily Use) - PO 17 grams DAILY [facility] Administration Quetiapine Fumarate 25 mg 09/05/19 10:00 09/06/19 09:36 Seroquel - PO 25 mg BID [facility] Administration ASSESSMENT/PLAN: - CT spine lumbar + thoracic shows no abscess, 2.5 cm rt lobe mass, L3, L4 stenosis, dilated GD, rt renal cyst - CT head- No fx or bleed on preliminary report, shows air bubble on scalp 63F with PMH of MS, anxiety, schizoaffective disorder, dementia, and depression sent from [facility] after she was found to be tachypnic with a fever of 103. Admitted for management of Sepsis. #Sepsis 2/2 UTI - febrile overnight to 102 but pt on correct abx given her UA Cx growth but will wait for C/S and B.C. - WBC 8.6, Tecfidera may cause leukopenia - UA 1+ protein, 4+ ketones, nitrite + - CXR: increased interstitial markings but no infiltrate - Influenza A/B negative - Aztreonam discontinued yesterday - Urinary Cx positive for gram negative lactose fermenting bacilli which is covered by ceftriaxone day 2. - Qtc elevated >500 - Blood, urine cx, urine for strep and legionella negative - Pt complaining of pain in spine, spinal tenderness on examination, ct ruled out abscess - ct head negative #Hx of MS - Continue Tecfidera #Hx of urinary retention - Will monitor for urinary output and scan bladder if output is low #Hx of schizoaffective disorder - Continue clonazepam, Seroquel, Remeron (may be causing prolonged Qtc) #Hx of Hyperlipidemia - Continue Lipitor Visit type - Emergency Visit Emergency Visit: Yes ED Registration Date: 09/04/19 Care time: The patient presented to the Emergency Department on the above date and was hospitalized for further evaluation of their emergent condition. - New Patient This patient is new to me today: No - Critical Care Critical Care patient: No - Discharge Referral Referred to [facility] Med P.C.: No ATTENDING PHYSICIAN STATEMENT I saw and evaluated the patient. I reviewed the resident's note and discussed the case with the resident. I agree with the resident's findings and plan as documented. SUBJECTIVE: OBJECTIVE: ASSESSMENT AND PLAN:
--- NOTE | 2019-09-06 11:39 | EKG ---
Test Reason : Blood Pressure : / mmHG Vent. Rate : 098 BPM Atrial Rate : 098 BPM P-R Int : 120 ms QRS Dur : 130 ms QT Int : 410 ms P-R-T Axes : 063 054 050 degrees QTc Int : 523 ms NORMAL SINUS RHYTHM RIGHT BUNDLE BRANCH BLOCK CANNOT RULE OUT INFERIOR INFARCT , AGE UNDETERMINED ABNORMAL ECG Confirmed by Jono Mabry MD ([id number]) on 09/06/2019 11:38:41 AM Referred By: Rupert MARTINS Confirmed By:Jono Mabry MD
[2019-09-06] MEDS ORDERED: POTASSIUM CHLORIDE TABS 20 MEQ TABLET.ER (FP) PO ONE (14:15)
[2019-09-06] MEDS: KCL 10 MEQ IVPB 10 MEQ/100 ML INFUS.BAG IVPB SCH ×3 (15:28→17:42)
[2019-09-06] MEDS ORDERED: PT OWN MED DRAWER 7, Y5N ONE (17:46)
[2019-09-06] MEDS ORDERED: guaiFENesin 200 MG/10 ML 10 ML UNIT-DOSE CUPS PO ONE (21:12)
[2019-09-06] MEDS: DOCUSATE SODIUM 100 MG CAPSULE (FP) PO SCH (21:25)
[2019-09-06] MEDS: ATORVASTATIN CA 40 MG TABLET (FP) PO SCH (21:25)
[2019-09-06] MEDS: PATIENT'S OWN MEDICATION (NON-FORMULARY) (Dimethyl Fumarate [Tecfidera] 240 MG) PO SCH (21:26)
--- NOTE | 2019-09-06 21:54 | PN ---
Mental Health Exam - Mental Status Exam Alert and Oriented to: Place, Person (a and o by 2) Cognitive Function: Grossly Intact Patient Appearance: Unkempt Mood: Anxious, Apprehensive Affect: Constricted Patient Behavior: Passive, Fatigued Speech Pattern: Unclear (in coughing spasm .) Voice Loudness: Moderately Soft/Quiet Thought Process: Circumstantial Thought Disorder: Not Present Hallucinations: Denies Suicidal Ideation: Denies Homicidal Ideation: Denies Insight/Judgement: Fair Sleep: Fair (slept 4-6 hr today, klonopin held twice. ) Appetite: Poor Muscle strength/Tone: Mild Hypotonicity Gait/Station: Deferred Additional Comments: Ms Rousseau is a 63 yo female with Tachy apnoea and confusion. high fevers from last evening. She resides in assisted living facility, currently visited by her youngest daughter John. She is alert and orientated by 2. She has a past psychiatric history of schiphrenia, depression , MS since 2018 also. Family are pursue 3 neurologist appointments as she has some memory loss. They are arranging a neuro-psych consult also. Plan. Continue taper of remeron, possible ekg change, per record. continue seroquel at 12.5. spoke with Josie GRIFFIN. Consider very slow taper of klonopin, currently at 4 mg a day, is depressing her respiratory status.
[2019-09-07] MEDS: ACETAMINOPHEN 325 MG TABLET (FP) PO PRN ×3 (02:07→20:21)
[2019-09-07] MEDS: LACTATED RINGERS SOLUTION 1,000 ML/1,000 ML INFUS.BAG IV SCH ×3 (06:30→21:21)
[2019-09-07 08:12] LABS: BASO % 0.1 % (0-2.0); HEMATOCRIT 35.3 % (32.4-45.2); HEMOGLOBIN 12.2 GM/dL (10.7-15.3); LYMPH % 8.2 % (8-40); MCH 31.7 pg (25.7-33.7); MCHC 34.6 g/dl (32.0-36.0); MEAN CELL VOLUME 91.5 fl (80-96); MEAN PLT VOLUME 7.9 fl (7.5-11.1); MONO % 3.6 % (3.8-10.2); NEUT % 88.1 % (42.8-82.8); PLATELET COUNT 227 K/MM3 (134-434); RBC 3.86 M/mm3 (3.60-5.2); WHITE BLOOD COUNT 10.3 K/mm3 (4.0-10.0)
[2019-09-07 08:41] LABS: ALBUMIN 2.8 g/dl (3.4-5.0); ALK PHOS 63 U/L (45-117); ANION GAP 12 MMOL/L (8-16); BILIRUBIN,TOTAL 0.7 mg/dL (0.2-1); BLOOD UREA NITROGEN 5.8 mg/dL (7-18); CALCIUM 8.2 mg/dL (8.5-10.1); CHLORIDE 103 mmol/L (98-107); CO2 23 mmol/L (21-32); CREATININE 0.4 mg/dL (0.55-1.3); GLUCOSE,RANDOM 88 mg/dL (74-106); POTASSIUM 3.5 mmol/L (3.5-5.1); SGOT/AST 24 U/L (15-37); SGPT/ALT 23 U/L (13-61); SODIUM 138 mmol/L (136-145); TOT PROT 5.6 g/dl (6.4-8.2)
--- NOTE | 2019-09-07 08:53 | CONSULT ---
Consult - text type - Consultation Consultation Note: Neurology CHIEF COMPLAINT: Sent from [facility] after she was found to be tachypnic with a fever of 103 PCP: Dr. Crystal HISTORY OF PRESENT ILLNESS: This is a 63 year old female, resident at [facility]), with PMH of MS, anxiety, schizoaffective disorder, dementia, and depression. Daughter was present at bedside to assist with history taking and examination. She was sent to the ER from [facility] after she was found to be tachypnic with a fever (daughter stated she thinks she was told 103, may have been 101.3). Per notes, the patient stated she fell down on day of admission, although the daughter said that she has been saying this for the past several weeks, and there have been no reports from the [place] about any falls. Patient only endorsed spinal pain in lower thoracic and lumbar region, which she has had for "a while ", and stated that she "wants to see a cardiac exercise specialist". She denied any fevers , chills, nausea, vomiting, diarrhea, abdominal pain, chest pain, palpitations, dizziness, light headedness, dysuria, polyuria, or hematuria. As per daughter, the patient has had a dry cough for the past 2 weeks. She was diagnosed with MS in November 2017, and is currently on Tecfidera. In May 2019, she began to develop dementia. She is AOx3, and recognizes her daughter, but struggles with short term memory recollection and is unable to answer questions in detail. She was admitted to [facility] in on 07/22/19 for a UTI and a fall, and multiple scans found no evidence of any fractures, and cultures were negative. She also had a brain MRi which showed demyelinating disease with no evidence of infarction, no ehancement. As per the daughter, the patient has seen 3 neurologists over the past few months, and her falls have been attributed to MS. Ct of Head completed and showed no evidence of acute intracranial pathology. Decreased attenuation of supratentorial periventricular white matter attributed to demyelination. Ct of thoracic and lumbar spine also performed and demonstrated no compression fracture, subluxation, focal bone destruction or sclerosis. Also, mild degenerative changes in lower T-spine and moderate degenerative dis disease at T12-L1 level. T11-T12 mild right osteophyte comples. L3-L4 mild disc bulge slightly impinging left L3 nerve root. This AM, patient denies any recent falls and is perseverating on her 8 AM medications and changing her top. I spoke with the nurse who indicated yesterday she was fixated on her sneakers. Psychiatry consult may be indicated and of benefit. Recent Travel: denies PAST MEDICAL HISTORY: See HPI PAST SURGICAL HISTORY: none Family Medical History: HTN Social History: Smoking: none Alcohol: occasionally Drugs: none REVIEW OF SYSTEMS CONSTITUTIONAL: Absent: fever, chills, diaphoresis, generalized weakness, malaise, loss of appetite, weight change HEENT: Absent: rhinorrhea, nasal congestion, throat pain, throat swelling, difficulty swallowing, mouth swelling, ear pain, eye pain, visual changes CARDIOVASCULAR: Absent: chest pain, syncope, palpitations, irregular heart rate, lightheadedness , peripheral edema RESPIRATORY: cough Absent: cough, shortness of breath, dyspnea with exertion, orthopnea, wheezing, stridor, hemoptysis GASTROINTESTINAL: Absent: abdominal pain, abdominal distension, nausea, vomiting, diarrhea, constipation, melena, hematochezia GENITOURINARY: Absent: dysuria, frequency, urgency, hesitancy, hematuria, flank pain, genital pain MUSCULOSKELETAL: back pain Absent: myalgia, arthralgia, joint swelling, back pain, neck pain SKIN: Absent: rash, itching, pallor HEMATOLOGIC/IMMUNOLOGIC: Absent: easy bleeding, easy bruising, lymphadenopathy, frequent infections ENDOCRINE: Absent: unexplained weight gain, unexplained weight loss, heat intolerance, cold intolerance NEUROLOGIC: Absent: headache, focal weakness or paresthesias, dizziness, unsteady gait, seizure, mental status changes, bladder or bowel incontinence PSYCHIATRIC: Absent: anxiety, depression, suicidal or homicidal ideation, hallucinations. Allergies Penicillins Allergy (Mild, Verified 09/04/19 18:58) Rash HOME MEDICATIONS: Home Medications Medication Instructions Recorded Acetaminophen 325 mg PO PRN 07/29/19 Aspirin 81 mg PO DAILY 07/29/19 Atorvastatin Ca [Lipitor] 40 mg PO HS 07/29/19 Clonazepam 1 mg PO QID 07/29/19 Dextran 70/Hypromellose 1 each OP BID 07/29/19 [Artificial Tears] Dimethyl Fumarate [Tecfidera] 240 mg PO DAILY 07/29/19 Docusate Sodium [Docusate 100 mg] 100 mg PO HS 07/29/19 Mirtazapine 30 mg PO HS 07/29/19 Quetiapine Fumarate [Seroquel -] 25 mg PO BID 07/29/19 Active Medications Acetaminophen (Tylenol -) 650 mg PO Q6H PRN PRN Reason: FEVER Last Admin: 09/07/19 02:07 Dose: 650 mg Artificial Tears (Artificial Tears) 1 drop OU BID [facility] Last Admin: 09/06/19 21:28 Dose: 1 drop Aspirin (Asa -) 81 mg PO DAILY [facility] Last Admin: 09/06/19 09:35 Dose: 81 mg Atorvastatin Calcium (Lipitor -) 40 mg PO HS [facility] Last Admin: 09/06/19 21:25 Dose: 40 mg Clonazepam (Klonopin -) 1 mg PO QID [facility] Last Admin: 09/06/19 21:24 Dose: 1 mg Docusate Sodium (Colace -) 100 mg PO HS [facility] Last Admin: 09/06/19 21:25 Dose: 100 mg Ceftriaxone Sodium 2 gm/ (Dextrose) 100 mls @ 100 mls/hr IVPB DAILY [facility]; Protocol Last Admin: 09/06/19 09:35 Dose: 100 mls/hr Lactated Ringer's (Lactated Ringers Solution) 1,000 ml in 1,000 mls @ 100 mls/ hr IV ASDIR [facility] Non-Formulary Medication (Dimethyl Fumarate [Tecfidera]) 240 mg PO BID [facility] Last Admin: 09/06/19 21:26 Dose: 240 mg Polyethylene Glycol (Miralax (For Daily Use) -) 17 gm PO DAILY [facility] Last Admin: 09/06/19 09:35 Dose: 17 grams Quetiapine Fumarate (Seroquel -) 12.5 mg PO BID [facility] Last Admin: 09/06/19 21:25 Dose: 12.5 mg PHYSICAL EXAMINATION Vital Signs Period Temp Pulse Resp BP Sys/Clemente Pulse Ox Last 24 Hr 99.1 F-103 F 78-114 20-21 121-140/51-81 GENERAL: AOx3 HEAD: Normal with no signs of trauma. EYES: Pupils equal, round and reactive to light, extraocular movements intact, sclera anicteric, conjunctiva clear. No lid lag. EARS, NOSE, THROAT: Ears normal, nares patent, oropharynx clear without exudates. Moist mucous membranes. NECK: Normal range of motion, supple without lymphadenopathy, JVD, or masses. LUNGS: Decreased sounds equal, clear to auscultation bilaterally. No wheezes, and no crackles. No accessory muscle use. HEART: Regular rate and rhythm, normal S1 and S2 without murmur, rub or gallop. ABDOMEN: Soft, nontender, not distended, normoactive bowel sounds, no guarding, no rebound, no masses. No hepatomegaly or splenomegaly. MUSCULOSKELETAL: spinal and paraspinal tenderness in lower thoracic and lumbar vertebrae UPPER EXTREMITIES: 2+ pulses, warm, well-perfused. No cyanosis. No clubbing. No peripheral edema. LOWER EXTREMITIES: 2+ pulses, warm, well-perfused. No calf tenderness. No peripheral edema. NEUROLOGICAL: Cranial nerves II-XII intact. Normal speech, moves eextremities grossly, not participating in confrontation testing, sensory intact PSYCHIATRIC: Flat affect, answers questions with single word sentences SKIN: Warm, dry, normal turgor, no rashes or lesions noted, normal capillary refill. CBCD WBC 10.3 K/mm3 (4.0-10.0) H 09/07/19 07:16 RBC 3.86 M/mm3 (3.60-5.2) 09/07/19 07:16 Hgb 12.2 GM/dL (10.7-15.3) 09/07/19 07:16 Hct 35.3 % (32.4-45.2) 09/07/19 07:16 MCV 91.5 fl (80-96) 09/07/19 07:16 MCHC 34.6 g/dl (32.0-36.0) 09/07/19 07:16 RDW 15.0 % (11.6-15.6) 09/07/19 07:16 Plt Count 227 K/MM3 (134-434) 09/07/19 07:16 MPV 7.9 fl (7.5-11.1) 09/07/19 07:16 CMP Sodium 138 mmol/L (136-145) 09/07/19 07:16 Potassium 3.5 mmol/L (3.5-5.1) 09/07/19 07:16 Chloride 103 mmol/L (98-107) 09/07/19 07:16 Carbon Dioxide 23 mmol/L (21-32) 09/07/19 07:16 Anion Gap 12 MMOL/L (8-16) 09/07/19 07:16 BUN 5.8 mg/dL (7-18) L 09/07/19 07:16 Creatinine 0.4 mg/dL (0.55-1.3) L 09/07/19 07:16 Random Glucose 88 mg/dL (74-106) 09/07/19 07:16 Calcium 8.2 mg/dL (8.5-10.1) L 09/07/19 07:16 Total Bilirubin 0.7 mg/dL (0.2-1) 09/07/19 07:16 AST 24 U/L (15-37) 09/07/19 07:16 ALT 23 U/L (13-61) 09/07/19 07:16 Alkaline Phosphatase 63 U/L (45-117) 09/07/19 07:16 Total Protein 5.6 g/dl (6.4-8.2) L 09/07/19 07:16 Albumin 2.8 g/dl (3.4-5.0) L 09/07/19 07:16 CARDIAC ENZYMES Troponin I < 0.02 ng/ml (0.00-0.05) 09/04/19 20:10 ASSESSMENT/PLAN: 63 year old female, resident at [facility] ([facility]), with PMH of MS, anxiety, schizoaffective disorder, dementia, and depression. Daughter was present at bedside to assist with history taking and examination. She was sent to the ER from [facility] after she was found to be tachypnic with a fever (daughter stated she thinks she was told 103, may have been 101.3). Per notes, the patient stated she fell down on day of admission, although the daughter said that she has been saying this for the past several weeks, and there have been no reports from the [place] about any falls. Patient only endorsed spinal pain in lower thoracic and lumbar region, which she has had for "a while", and stated that she "wants to see a cardiac exercise specialist". She denied any fevers, chills, nausea, vomiting, diarrhea, abdominal pain, chest pain, palpitations, dizziness , light headedness, dysuria, polyuria, or hematuria. As per daughter, the patient has had a dry cough for the past 2 weeks. She was diagnosed with MS in November 2017, and is currently on Tecfidera. In May 2019, she began to develop dementia. She is AOx3, and recognizes her daughter, but struggles with short term memory recollection and is unable to answer questions in detail. She was admitted to [facility] in on 07/22/19 for a UTI and a fall, and multiple scans found no evidence of any fractures, and cultures were negative. She also had a brain MRi which showed demyelinating disease with no evidence of infarction, no ehancement. As per the daughter, the patient has seen 3 neurologists over the past few months, and her falls have been attributed to MS. Ct of Head completed and showed no evidence of acute intracranial pathology. Decreased attenuation of supratentorial periventricular white matter attributed to demyelination. Ct of thoracic and lumbar spine also performed and demonstrated no compression fracture, subluxation, focal bone destruction or sclerosis. Also, mild degenerative changes in lower T-spine and moderate degenerative dis disease at T12-L1 level. T11-T12 mild right osteophyte comples. L3-L4 mild disc bulge slightly impinging left L3 nerve root. This AM, patient denies any recent falls and is perseverating on her 8 AM medications and changing her top. I spoke with the nurse who indicated yesterday she was fixated on her sneakers. Psychiatry consult may be indicated and of benefit. Patient currently being managed for infection and does not appear to have MS exacerbation as no new focal deficits. Would benefit from PT, short term rehab if amenable. Continue infectious management, ABx as per primary team.
[2019-09-07] MEDS ORDERED: DEXTROSE 5%-WATER 100 ML IVPB ONE ×2 (10:58→21:51)
[2019-09-07] MEDS: QUEtiapine FUMARATE 25 MG TABLET PO SCH ×2 (11:05→21:59)
[2019-09-07] MEDS: ASPIRIN 81 MG CHEWABLE TABLETS PO SCH (11:06)
[2019-09-07] MEDS: clonazePAM 0.5 MG TABLET PO SCH ×4 (11:10→23:42)
[2019-09-07] MEDS: PATIENT'S OWN MEDICATION (NON-FORMULARY) (Dimethyl Fumarate [Tecfidera] 240 MG) PO SCH ×2 (11:10→22:00)
[2019-09-07] MEDS: CEFTRIAXONE 2 GM in DEXTROSE 5%-WATER 100 ML IVPB SCH (11:11)
[2019-09-07] MEDS: ARTIFICIAL TEARS (POLYVINYL ALCOHOL) OPTH DROPS OU SCH ×2 (11:13→22:01)
[2019-09-07] MEDS: POLYETHYLENE GLYCOL 3350 119 GM BTL PO SCH (11:15)
[2019-09-07] MEDS ORDERED: DOXYCYCLINE INJECTION 100 MG in DEXTROSE 5%-WATER - 100 ML IVPB SCH ×2 (12:14→22:00)
[2019-09-07] MEDS ORDERED: PIPERACILLIN/TAZOB 3.375 GM 3.375 GM in DEXTROSE 5%-WATER - 50 ML IVPB SCH ×3 (12:14→18:00)
--- NOTE | 2019-09-07 12:16 | PN ---
Physical Exam: SUBJECTIVE: Patient seen and examined at bedside. Coughing up sputum. Fever 102 overnight recultured by [facility] team. AO X 2. OBJECTIVE: Vital Signs Period Temp Pulse Resp BP Sys/Clemente Pulse Ox Last 24 Hr 99.1 F-103 F 102-114 20-21 129-140/51-81 GENERAL: The patient is aoX2. LUNGS: Breath sounds reduced at bases, crackles at bases HEART: Regular rate and rhythm, S1, S2 without murmur, rub or gallop. ABDOMEN: Soft, nontender, nondistended EXTREMITIES: 2+ pulses, warm, well-perfused, no edema. NEUROLOGICAL: Cranial nerves II through XII grossly intact. Normal speech, gait improved today, opening her eyes more today Laboratory Results - last 24 hr 09/07/19 09/07/19 09/07/19 07:16 07:16 07:16 WBC 10.3 H RBC 3.86 Hgb 12.2 Hct 35.3 MCV 91.5 MCH 31.7 MCHC 34.6 RDW 15.0 Plt Count 227 MPV 7.9 Absolute Neuts (auto) 9.0 H Neutrophils % 88.1 H Lymphocytes % 8.2 D Monocytes % 3.6 L Eosinophils % 0.0 Basophils % 0.1 Nucleated RBC % 0 ESR 20 Sodium 138 Potassium 3.5 Chloride 103 Carbon Dioxide 23 Anion Gap 12 BUN 5.8 L Creatinine 0.4 L Est GFR (CKD-EPI)AfAm 128.47 Est GFR (CKD-EPI)NonAf 110.85 Random Glucose 88 Calcium 8.2 L Total Bilirubin 0.7 AST 24 ALT 23 Alkaline Phosphatase 63 C-Reactive Protein 12.1 H Total Protein 5.6 L Albumin 2.8 L Rheumatoid Factor < 10.0 Active Medications Generic Name Dose Route Start Last Admin Trade Name Freq PRN Reason Stop Dose Admin Acetaminophen 650 mg 09/06/19 03:15 09/07/19 11:03 Tylenol - PO 650 mg Q6H PRN Administration FEVER Artificial Tears 1 drop 09/05/19 10:00 09/07/19 11:13 Artificial Tears OU 1 drop BID AISSATOU Administration Aspirin 81 mg 09/05/19 10:00 09/07/19 11:06 Asa - PO 81 mg DAILY AISSATOU Administration Atorvastatin Calcium 40 mg 09/05/19 22:00 09/06/19 21:25 Lipitor - PO 40 mg HS AISSATOU Administration Clonazepam 1 mg 02/04/20 10:00 09/07/19 11:10 Klonopin - PO 1 mg QID AISSATOU Administration Docusate Sodium 100 mg 09/05/19 22:00 09/06/19 21:25 Colace - PO 100 mg HS AISSATOU Administration Ceftriaxone Sodium 2 gm/ 100 mls @ 100 mls/hr 09/05/19 10:45 09/07/19 11:11 Dextrose IVPB 100 mls/hr DAILY AISSATOU Administration Protocol Lactated Ringer's 1,000 ml in 1,000 mls @ 100 mls/hr 09/07/19 08:30 09/07/19 11:06 Lactated Ringers Solution IV Not Given ASDIR AISSATOU Piperacillin Sod/Tazobactam 50 mls @ 100 mls/hr 09/07/19 12:14 Sod 3.375 gm/ Dextrose IVPB Q8H-IV AISSATOU Protocol Doxycycline Hyclate 100 mg/ 100 mls @ 100 mls/hr 09/07/19 12:14 Dextrose IVPB BID AISSATOU Non-Formulary Medication 240 mg 09/06/19 22:00 09/07/19 11:10 Dimethyl Fumarate [Tecfidera] PO 240 mg BID AISSATOU Administration Polyethylene Glycol 17 gm 09/06/19 10:00 09/07/19 11:15 Miralax (For Daily Use) - PO 17 grams DAILY AISSATOU Administration Quetiapine Fumarate 12.5 mg 09/06/19 13:57 09/07/19 11:05 Seroquel - PO 12.5 mg BID AISSATOU Administration ASSESSMENT/PLAN: - CT spine lumbar + thoracic shows no abscess, 2.5 cm rt lobe mass, L3, L4 stenosis, dilated GD, rt renal cyst - CT head- No fx or bleed on preliminary report, shows air bubble on scalp - CTchest: B/l lower lobe infilitrates Lt>Rt concern for acute PNA, patchy infiltrates in b/l lobes, atelectasis at rt lung base. 63F with PMH of MS, anxiety, schizoaffective disorder, dementia, and depression sent from [facility] after she was found to be tachypnic with a fever of 103. Admitted for management of Sepsis. #Sepsis 2/2 UTI - febrile overnight to 102, recultured and treated with 1gt vanc, cefepime 2gQ8H , doxy 100 BID. UA Cx growing E coli. - WBC 10.3 today, Tecfidera may cause leukopenia - UA 1+ protein, 4+ ketones, nitrite + - CXR: increased interstitial markings but no infiltrate, CT chest showing b/l PNA - Influenza A/B negative - Urinary Cx positive for gram negative lactose fermenting bacilli which is covered by ceftriaxone day 2. - Qtc no longer elevated on recent ekg - Blood, urine cx, urine for strep and legionella negative #Hx of MS - Continue Tecfidera - Neuro seen pt and does not think this is due to Acute MS exacerbation - speech and swallow eval #Hx of urinary retention - Will monitor for urinary output and scan bladder if output is low #Hx of schizoaffective disorder - taper clonazepam very slowly per psych, Seroquel 12.5BID, d/c'd remeron (may be causing prolonged Qtc) #Hx of Hyperlipidemia - Continue Lipitor Visit type - Emergency Visit Emergency Visit: Yes ED Registration Date: 09/04/19 Care time: The patient presented to the Emergency Department on the above date and was hospitalized for further evaluation of their emergent condition. - New Patient This patient is new to me today: No - Critical Care Critical Care patient: No - Discharge Referral Referred to [facility] Med [facility] No ATTENDING PHYSICIAN STATEMENT I saw and evaluated the patient. I reviewed the resident's note and discussed the case with the resident. I agree with the resident's findings and plan as documented. SUBJECTIVE: OBJECTIVE: ASSESSMENT AND PLAN:
[2019-09-07] MEDS: VANCOMYCIN 1 GM in D5W (PRE-DOCKED) 1,000 MG/250 ML IVPB ONE ×2 (12:31→13:13)
--- NOTE | 2019-09-07 12:34 | PN ---
Teaching Attending Note Name of Resident: Panda Dawson ATTENDING PHYSICIAN STATEMENT I saw and evaluated the patient. I reviewed the resident's note and discussed the case with the resident. I agree with the resident's findings and plan as documented. Seen and examined; please see resident note for further historical information. I personally verified all [place] historical information and exam findings. Personally interpreted all imaging and diagnostics and reviewed appropriate consults. I reviewed all labs and vital signs as per resident note and EMR as documented. I agree with the above assessment and plan unless supplemented by myself in the following. Seen and examined, CT was positive for pneumonia, will broaden coverage to include community-acquired pneumonia. Seen by neurology who does not believe that she has a underlying MS flare, seen by psychiatry who recommended to continue with the medication adjustments that were made. Updated her other daughter and spoke with the patient. She has no new focal deficits on exam but continues to be somewhat weak. She was febrile overnight and is slightly tachycardic so her fluid rate was increased and we are broaden the antibiotics and will discuss with ID. She would qualify for broad-spectrum coverage. 10 item review of systems completed and is negative aside from as discussed in the subjective data in my own/the resident documentation. VS, labs, imaging reviewed NAD, AAO, resting comfortably in bed. RRR s1/2 no mgr Normal muscle tone, moves all 5 extremities with normal apparent strength Neck is supple, trachea midline, no [place] LN Lungs CTAB with sym expansion NT ND +BS no [place] organomegaly CN2-12 wnl; no FND NC AT EOMI PERRLA Normal mood, appropriate behavior, euthymic affect No skin breakdown or rashes noted Assessment and plan: Patient presents with sepsis secondary to UTI/pneumonia, cultures pending. MS exacerbation less likely, consulting pulmonary. Problems include: -Sepsis 2/2 UTI (ID consulted; follow up recs. Continue IV abx, IVF can be DCd when stable. Lactose fermenting GNB growing on urine cx) -Right lung granuloma (Checking CT, FU PPD) -Back pain with noted Osteoarthritis (DJD changes seen throughout XR; PRN management; no need for MRI) -Schizoaffective disorder (questionable capacity; on mirtazapine, seroquel, klonopin. -Weakness (PT working with patient -Depression (Family wants to change to SSRI from mirtazapine which is being held , decreased seroqel doses) -History of MS (Obtaining OP treatment records and will discuss. Consulting Dr. Stevenson. She is weak but does not otherwise have the defining halmarks of a flare with the patient)
[2019-09-07] MEDS ORDERED: PT OWN MED DRAWER 7, Y5N ONE ×2 (13:08→17:56)
[2019-09-07] MEDS ORDERED: DEXTROSE 5%-WATER - 50 ML IVPB ONE (13:14)
[2019-09-07] MEDS ORDERED: PIPERACILLIN/TAZOBACTAM 3.375 GM VIAL IVPB ONE (13:14)
--- NOTE | 2019-09-07 13:42 | CONSULT ---
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 - Past Surgical History Past Surgical History: Yes: None - Advance Directives Advance Directives: Yes: Health Care Proxy - Smoking History Smoking history: Never smoked Have you smoked in the past 12 months: No - Alcohol/Substance Use Hx Alcohol Use: No History of Substance Use: reports: None - Social History ADL: Support Services Occupation: disability History - Admission Reason For Visit: SEPSIS - Hearing Hearing: Normal Speech Evaluation - Communication Primary Language: IRISH Communication: Yes: Within Normal Limits, Simple Responses Oral Expression Ability: Yes: No Impairment - Speech Production Apraxia: No Able to Make Needs Known: Yes: WNL Intelligibility: Yes: WNL - Speech Characteristics Voice Loudness: Normal Voice Pitch: Yes: Normal Voice Phonatory-based Quality: Yes: Normal Speech Pattern: Normal Nasal Resonance: Normal Articulation: Yes: Precise Rate of Speech: Intact - Language/Auditory Comprehension Follows: Yes: 1 Stage Simple Commands (can be resistive at times), 2 Stage Simple Commands - Language/Verbal Expression Able to Respond to Simple Queries: Yes: WNL Able to Communicate Wants and Needs: Yes: WNL Functional Communication Status: Yes: WNL Aware of Errors: Yes Attempts to Correct Errors: Yes Use of Gestures: No Written Expression: Not examined Oral Expression: WFL Reading Comprehension: Not examined Calculations: Not examined Attention: Yes: Intact - Memory/Perception alf Memory: Yes: Moderately Impaired Short Term Memory: Yes: Mildly Impaired - Swallow Evaluation/Bedside Assessment Current Nutritional Intake: Regular, Thin Liquids Oral Secretions: Yes: WFL Tracheostomy Present: No Patient on Ventilator: No Dentition: Yes: Adequate Facial Symmetry at Rest: Symmetrical Facial Symmetry on Retraction: Symmetrical Facial Movement: Controlled Sensation: Normal Jaw Position: Closed at Rest Against Resistance Opening: Normal Against Resistance Closing: Normal Pucker Lips: Normal Smile: Normal Lips, Comment: informal observation as pt was not cooperative during oral motor eval Lingual Movement: Normal Lingual Speed of Movement: Normal Lingual Movement Strgth Against Opposition: Normal Lingual Movement Characteristics: Normal Lingual Comment: informal observation as pt was not cooperative during oral motor eval Soft Palate Description: Normal Color Hard Palate Description: Normal Color Gag Reflex: Strong Bite Reflex: Present Velopharyngeal Movement: Normal Laryngeal Elevation: WFL Laryngeal Movement: Able to Palpate Needs Assistance: Yes Rate of Intake: WFL Bolus Size: WFL Labial Seal: WFL Chewing: WFL Oral Prep Time: WFL A-P Transit: WFL Timing of Swallow: WFL Odynophagia: Oral Coughing/Throat Clear: No Change in Voice: No Other Findings/Remarks: 63 yo female seen during lunch at bedside for swallow eval to r/o dysphagia. Pt present as A&Ox2 with confusion verbal, somewhat cooperative. Daughter present and assisted with this session as pt was uncooperative for oral motor and swallow eval. Pt presents with PMHX schizoaffective disorder, hyperlipidemia and UTI. CXR 09/07/2019 revealed lower lobe opacity (possible PNA). Pt was febrile yesterday and very lethargic but mental status has improved today as reported by change RN and daughter. Current diet: regular solids with thin liquids. Pt reports just not being hungry (but will eat with the daughter). Only consuming about 25% of meals for the past 24 hrs. Recent hx of weight loss secondary to reduced appetite. Pt given PO trials of pureed, and regular cut to bite sized pieces with assistance revealed, adequate bolus formation and A P transport with a timely pharyngeal swallow (1-2 second average). No change in voicing or respiration after the swallow. Pt given PO trials of thin liquids via cup and straw with some assistance revealed good acceptance, adequate labial containment / bolus control and, A P transport with a timely pharyngeal swallow (1-2 second average). No change in voicing or respiration after the swallow. Recommendations - Speech Evaluation, Impression/Plan Impression: Pt is able to tolerate puree and mechanical soft moisten solids and thin liquids at this time. No evidence of dysphagia or aspiration on any consistency given during this evaluation. Speech is within normal limits. Language is affective secondary to confusion and mental status. Prison Goals: Tolerate the least restrictive solid and liquid consistencies without s/s of penetration / aspiration. Short Term Goals: Tolerate the least regular solids and thin liquid consistencies without s/s of penetration / aspiration. Recommended Frequency for Therapy: Follow Up PRN - Disposition Discharge to: [facility] Facility - Dysphagia Impressions/Plan Swallowing Skills: WFL Dysphagia Impressions: Mild Impairment (secondary to reduced intake), Risk of Aspiration (secondary to PNA status) *Silent aspiration: cannot be R/O at bedside Dysphagia Treatment Plan: Small Bites, Safe Rate, 1/2 tsp. at a time, Elevate HOB during feed Dysphagia Evaluation Summary: Continue po intake of regular solids with thin liquids at tolerated. Observe standard aspiration precautions. Provide oral care before and after meals. Medication can be given crushed with applesauce. Consider appetite stimulant and possible high calorie supplements. Results given verbally to foam charger and PCP via chart. LOBBY PORTER to follow up for diet tolerance - Recommendations Diet Consistency: Regular Medication Administration: Crushed with applesauce (for ease of swallow.) Liquids: Thin Liquids Supplement: Ensure (consideration)
--- NOTE | 2019-09-07 13:54 | CON.PULM ---
Consult Consult Specialty:: PULMONARY Referred by:: Dr Vu Reason for Consultation:: pneumonia - History of Present Illness Chief Complaint: shortness of breath History of Present Illness: 63yo female with h/o multiple sclerosis, schizoaffective disorder, anxiety, dementia who was admitted from assisted living for shortness of breath and fevers. Was treated with antibiotics but fevers persisted. CT chest done today showing bibasilar infiltrates L>R. Daughter at bedside providing history. Pt herself denies shortness of breath, cough or wheezing. No chest discomfort. Cultures negative thus far. No history of asthma or COPD, she is a never smoker. 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 - Past Surgical History Past Surgical History: Yes: None - Alcohol/Substance Use Hx Alcohol Use: No History of Substance Use: reports: None - Smoking History Smoking history: Never smoked Have you smoked in the past 12 months: No - Social History ADL: Support Services Occupation: disability Home Medications - Allergies Allergies/Adverse Reactions: Allergies Allergy/AdvReac Type Severity Reaction Status Date / Time Penicillins Allergy Mild Rash Verified 09/04/19 18:58 - Home Medications Home Medications: Ambulatory Orders Acetaminophen 325 mg PO PRN 07/29/19 Aspirin 81 mg PO DAILY 07/29/19 Atorvastatin Ca [Lipitor] 40 mg PO HS 07/29/19 Clonazepam 1 mg PO QID 07/29/19 Dextran 70/Hypromellose [Artificial Tears] 1 each OU BID 07/29/19 Dimethyl Fumarate [Tecfidera] 240 mg PO BID 07/29/19 Docusate Sodium [Docusate 100 mg] 200 mg PO HS 07/29/19 Mirtazapine 30 mg PO HS 07/29/19 Quetiapine Fumarate [Seroquel -] 25 mg PO HS 07/29/19 Review of Systems - Review of Systems Constitutional: reports: Fever, Weakness Eyes: denies: Recent Change in Vision HENT: denies: Nasal Congestion, Throat Pain Neck: denies: Stiffness, Tenderness Cardiovascular: reports: Shortness of Breath. denies: Chest Pain Respiratory: denies: Cough, Hemoptysis, Wheezing Gastrointestinal: denies: Abdominal Pain, Nausea, Vomiting Genitourinary: denies: Dysuria, Hematuria Neurological: denies: Dizziness, Headache Endocrine: denies: Unexplained Weight Loss Physical Exam Vital Sings: Vital Signs Temperature 100.4 F H 09/07/19 05:54 Pulse Rate 111 H 09/07/19 05:54 Respiratory Rate 09/07/19 05:54 Blood Pressure 129/51 L 09/07/19 05:54 O2 Sat by Pulse Oximetry (%) 99 09/05/19 03:35 Constitutional: Yes: Calm, Diaphoresis Eyes: Yes: Conjunctiva Clear, EOM Intact HENT: Yes: Atraumatic, Normocephalic Neck: Yes: Supple, Trachea Midline Cardiovascular: Yes: Regular Rate and Rhythm Respiratory: Yes: Diminished (decreased breath sounds at the bases) ...Clubbing: No Gastrointestinal: Yes: Normal Bowel Sounds, Soft. No: Tenderness Edema: No Neurological: Yes: Alert, Oriented Labs: CBC, BMP 09/07/19 07:16 09/07/19 07:16 Imaging - Results Chest X-ray: Report Reviewed, Image Reviewed Cat Scan: Report Reviewed, Image Reviewed (bibasilar infiltrates L>R) Problem List - Problems (1) Pneumonia Code(s): J18.9 - PNEUMONIA, UNSPECIFIED ORGANISM Assessment/Plan Pneumonia Sepsis Multiple Sclerosis Schizoaffective Disorder Anxiety/Depression Dementia - agree with IV antibiotics - f/u cultures, send urinary antigens - monitor fever curve, WBC trend - aspiration precautions - start nystatin for thrush - O2 as needed to keep SpO2>90% - DVT prophylaxis Thank you for this consult Dakota Torres MD
--- NOTE | 2019-09-07 14:45 | PN ---
Progress Note, Physician History of Present Illness: AWAKE, ALERT IN BED REMAINS FEBRILE DENIES CHEST PAIN/ DYSPNEA/ COUGH DENIES DYSURIA BC PRELIM URINE C/S E COLI CT SHOWS BASILAR INFILTRATES - Current Medication List Current Medications: Active Medications Acetaminophen (Tylenol -) 650 mg PO Q6H PRN PRN Reason: FEVER Last Admin: 09/07/19 11:03 Dose: 650 mg Artificial Tears (Artificial Tears) 1 drop OU BID [facility] Last Admin: 09/07/19 11:13 Dose: 1 drop Aspirin (Asa -) 81 mg PO DAILY [facility] Last Admin: 09/07/19 11:06 Dose: 81 mg Atorvastatin Calcium (Lipitor -) 40 mg PO HS [facility] Last Admin: 09/06/19 21:25 Dose: 40 mg Clonazepam (Klonopin -) 1 mg PO QID [facility] Last Admin: 09/07/19 13:50 Dose: 1 mg Docusate Sodium (Colace -) 100 mg PO HS [facility] Last Admin: 09/06/19 21:25 Dose: 100 mg Lactated Ringer's (Lactated Ringers Solution) 1,000 ml in 1,000 mls @ 100 mls/ hr IV ASDIR [facility] Last Admin: 09/07/19 11:06 Dose: Not Given Doxycycline Hyclate 100 mg/ (Dextrose) 100 mls @ 100 mls/hr IVPB BID A[facility]AT[facility] Cefepime HCl (Maxipime 2gm Ivpb (Premix)) 2 gm in 50 mls @ 100 mls/hr IVPB Q8H- IV AISSATOU; Protocol Non-Formulary Medication (Dimethyl Fumarate [Tecfidera]) 240 mg PO BID [facility] Last Admin: 09/07/19 11:10 Dose: 240 mg Nystatin (Nystatin Oral Suspension -) 500,000 units PO Q6HPO [facility] Polyethylene Glycol (Miralax (For Daily Use) -) 17 gm PO DAILY [facility] Last Admin: 09/07/19 11:15 Dose: 17 grams Quetiapine Fumarate (Seroquel -) 12.5 mg PO BID [facility] Last Admin: 09/07/19 11:05 Dose: 12.5 mg - Objective Vital Signs: Vital Signs Temperature 100.4 F H 09/07/19 05:54 Pulse Rate 111 H 09/07/19 05:54 Respiratory Rate 20 09/07/19 05:54 Blood Pressure 129/51 L 09/07/19 05:54 O2 Sat by Pulse Oximetry (%) 99 09/05/19 03:35 Constitutional: Yes: No Distress Eyes: Yes: Conjunctiva Clear Cardiovascular: Yes: Regular Rate and Rhythm, S1, S2 Respiratory: Yes: Diminished Gastrointestinal: Yes: Normal Bowel Sounds, Soft. No: Tenderness Edema: No Labs: CBC, BMP 09/07/19 07:16 09/07/19 07:16 INR, PTT INR 0.99 (0.83-1.09) 09/04/19 20:10 Assessment/Plan UTI R/O SEPSIS SECONDARY TO UTI LLL PNEUMONIA EXACERBATION MS PCN ALLERGY OBTAIN SPUTUM C/S,LEGIONELLA AG [employer] C[employer]AGE VANCOMYCIN/ CEFEPIME/ DOXYCYCLINE DISCUSSED WITH DAUGHTER AT BEDSIDE
[2019-09-07] MEDS: VANCOMYCIN 1 GRAM (PRE-DOCKED) 1,000 MG/250 ML BAG IVPB SCH (15:00)
[2019-09-07] MEDS: NYSTATIN 500,000 UNITS/5 ML SUSPENSION PO SCH ×2 (17:59→23:42)
[2019-09-07] MEDS: CEFEPIME 2 GM in DEXTROSE 5%-WATER 100 ML IVPB SCH ×2 (17:59→18:00)
[2019-09-07] MEDS ORDERED: CEFEPIME HCL/D5W 2 GM/50 ML BAG IVPB SCH (18:00)
[2019-09-07] MEDS ORDERED: DOXYCYCLINE HYCLATE 100 MG VIAL ONE (21:50)
[2019-09-07] MEDS: DOCUSATE SODIUM 100 MG CAPSULE (FP) PO SCH (21:57)
[2019-09-07] MEDS: ATORVASTATIN CA 40 MG TABLET (FP) PO SCH (22:00)
[2019-09-07] MEDS: DOXYCYCLINE INJECTION 100 MG in DEXTROSE 5%-WATER 100 ML IVPB SCH (22:02)
[2019-09-08] MEDS: CEFEPIME 2 GM in DEXTROSE 5%-WATER 100 ML IVPB SCH ×3 (02:16→17:51)
[2019-09-08] MEDS: VANCOMYCIN 1 GRAM (PRE-DOCKED) 1,000 MG/250 ML BAG IVPB SCH ×2 (03:55→15:21)
[2019-09-08] MEDS: NYSTATIN 500,000 UNITS/5 ML SUSPENSION PO SCH ×3 (07:05→17:22)
--- NOTE | 2019-09-08 08:37 | PN ---
Teaching Attending Note Name of Resident: Panda Dawson ATTENDING PHYSICIAN STATEMENT I saw and evaluated the patient. I reviewed the resident's note and discussed the case with the resident. I agree with the resident's findings and plan as documented. Seen and examined; please see resident note for further historical information. I personally verified all [place] historical information and exam findings. Personally interpreted all imaging and diagnostics and reviewed appropriate consults. I reviewed all labs and vital signs as per resident note and EMR as documented. I agree with the above assessment and plan unless supplemented by myself in the following. Patient has bilateral lower lobe consolidation left greater than right concerning for acute pneumonia. She was seen by pulmonary who agrees with current treatment and start nystatin for oral thrush. Antibiotics were broadened. The patient is also noted as having E. coli growing from the urine just the final culture result that is pansensitive. Antibiotics per infectious disease. Seroquel 12.5 mg every nightly 10 item review of systems completed and is negative aside from as discussed in the subjective data in my own/the resident documentation. VS, labs, imaging reviewed NAD, AAO, resting comfortably in bed. RRR s1/2 no mgr Normal muscle tone, moves all 5 extremities with normal apparent strength Neck is supple, trachea midline, no [place] LN Lungs w/ scattered crackles, w/ sym expansion NT ND +BS no [place] organomegaly CN2-12 wnl; no FND. Shuffling gait NC AT EOMI PERRLA Normal mood, appropriate behavior, flat affect No skin breakdown or rashes noted CT of the chest shows bilateral lower lobe consolidation left greater than right. Flu negative, viral panel pending. ASSESSMENT AND PLAN: Patient is a 63-year-old female with a history of MS presenting to the hospital with a chief complaint of sepsis secondary to likely UTI versus pneumonia, evidence of both objectively. Growing pansensitive E. coli. Continue antibiotics per ID, nystatin started for oral thrush. Seen by psychology and neurology who do not believe this represents an acute MS flare and agree with the changes to her psychiatric medications that were instituted as response to her elevated QTC. She is experienced no acute arrhythmias or issues during her time on the floor at [facility]. She is hemodynamically stable and afebrile in terms of true fevers today. We will continue to observe, transitioning to oral antibiotics and planning for discharge in the coming 24 to 36 hours -Sepsis 2/2 UTI/CAP (On IV abx, doxy as elevated QT but defer to ID. Pulm following) -Right lung granuloma (CT noted; quantiferon (ordered as no PPD) done and results pending) -Back pain with noted Osteoarthritis (DJD changes seen throughout XR; PRN management; no need for MRI) -Schizoaffective disorder (questionable capacity; on mirtazapine, seroquel, klonopin. -Weakness (PT working with patient; no acute MS flare. Potential component of depression) -Depression (Noted psych input) -History of MS (No acute flare per Dr. Stevenson) Full Code
--- NOTE | 2019-09-08 08:49 | PN ---
Progress Note (short form) - Note Progress Note: Neurology CHIEF COMPLAINT: Sent from [facility] after she was found to be tachypnic with a fever of 103 PCP: Dr. Crystal HISTORY OF PRESENT ILLNESS: This is a 63 year old female, resident at [facility]), with PMH of MS, anxiety, schizoaffective disorder, dementia, and depression. Daughter was present at bedside to assist with history taking and examination. She was sent to the ER from [facility] after she was found to be tachypnic with a fever (daughter stated she thinks she was told 103, may have been 101.3). Per notes, the patient stated she fell down on day of admission, although the daughter said that she has been saying this for the past several weeks, and there have been no reports from the [place] about any falls. Patient only endorsed spinal pain in lower thoracic and lumbar region, which she has had for "a while ", and stated that she "wants to see a fundraising specialist". She denied any fevers , chills, nausea, vomiting, diarrhea, abdominal pain, chest pain, palpitations, dizziness, light headedness, dysuria, polyuria, or hematuria. As per daughter, the patient has had a dry cough for the past 2 weeks. She was diagnosed with MS in November 2017, and is currently on Tecfidera. In May 2019, she began to develop dementia. She is AOx3, and recognizes her daughter, but struggles with short term memory recollection and is unable to answer questions in detail. She was admitted to [facility] in on 07/22/19 for a UTI and a fall, and multiple scans found no evidence of any fractures, and cultures were negative. She also had a brain MRi which showed demyelinating disease with no evidence of infarction, no ehancement. As per the daughter, the patient has seen 3 neurologists over the past few months, and her falls have been attributed to MS. Ct of Head completed and showed no evidence of acute intracranial pathology. Decreased attenuation of supratentorial periventricular white matter attributed to demyelination. Ct of thoracic and lumbar spine also performed and demonstrated no compression fracture, subluxation, focal bone destruction or sclerosis. Also, mild degenerative changes in lower T-spine and moderate degenerative dis disease at T12-L1 level. T11-T12 mild right osteophyte comples. L3-L4 mild disc bulge slightly impinging left L3 nerve root. This AM, more calm and relaxed, not pperseverating at this time. She does know that she is in the hospital and can specify that it is [facility]. She was to tell me it's September 2019 as well as the name of the president. Mental status appears to be improved possibly from receiving antibiotics for underlying infection. Active Medications Acetaminophen (Tylenol -) 650 mg PO Q6H PRN PRN Reason: FEVER Last Admin: 09/07/19 20:21 Dose: 650 mg Artificial Tears (Artificial Tears) 1 drop OU BID [facility] Last Admin: 09/07/19 22:01 Dose: 1 drop Aspirin (Asa -) 81 mg PO DAILY [facility] Last Admin: 09/07/19 11:06 Dose: 81 mg Atorvastatin Calcium (Lipitor -) 40 mg PO HS [facility] Last Admin: 09/07/19 22:00 Dose: 40 mg Clonazepam (Klonopin -) 1 mg PO QID [facility] Last Admin: 09/07/19 23:42 Dose: Not Given Docusate Sodium (Colace -) 100 mg PO HS [facility] Last Admin: 09/07/19 21:57 Dose: 100 mg Lactated Ringer's (Lactated Ringers Solution) 1,000 ml in 1,000 mls @ 100 mls/ hr IV ASDIR [facility] Last Admin: 09/07/19 21:21 Dose: 100 mls/hr Doxycycline Hyclate 100 mg/ (Dextrose) 100 mls @ 100 mls/hr IVPB BID [facility] Last Admin: 09/07/19 22:02 Dose: 100 mls/hr Cefepime HCl 2 gm/ Dextrose 100 mls @ 100 mls/hr IVPB Q8H-IV [facility]; Protocol Last Admin: 09/08/19 02:16 Dose: 100 mls/hr Vancomycin HCl (Vancomycin (Pre-Docked)) 1,000 mg in 250 mls @ 166.667 mls/hr IVPB Q12H [facility]; Protocol Last Admin: 09/08/19 03:55 Dose: 166.667 mls/hr Non-Formulary Medication (Dimethyl Fumarate [Tecfidera]) 240 mg PO BID [facility] Last Admin: 09/07/19 22:00 Dose: 240 mg Nystatin (Nystatin Oral Suspension -) 500,000 units PO Q6HPO [facility] Last Admin: 09/08/19 07:05 Dose: 500,000 units Polyethylene Glycol (Miralax (For Daily Use) -) 17 gm PO DAILY [facility] Last Admin: 09/07/19 11:15 Dose: 17 grams Quetiapine Fumarate (Seroquel -) 12.5 mg PO HS [facility] PHYSICAL EXAMINATION Vital Signs Period Temp Pulse Resp BP Sys/Clemente Pulse Ox Last 24 Hr 99.4 F-100.8 F 90-106 18-20 130-146/68-78 GENERAL: AOx3 HEAD: Normal with no signs of trauma. EYES: Pupils equal, round and reactive to light, extraocular movements intact, sclera anicteric, conjunctiva clear. No lid lag. EARS, NOSE, THROAT: Ears normal, nares patent, oropharynx clear without exudates. Moist mucous membranes. NECK: Normal range of motion, supple without lymphadenopathy, JVD, or masses. LUNGS: Decreased sounds equal, clear to auscultation bilaterally. No wheezes, and no crackles. No accessory muscle use. HEART: Regular rate and rhythm, normal S1 and S2 without murmur, rub or gallop. ABDOMEN: Soft, nontender, not distended, normoactive bowel sounds, no guarding, no rebound, no masses. No hepatomegaly or splenomegaly. MUSCULOSKELETAL: spinal and paraspinal tenderness in lower thoracic and lumbar vertebrae UPPER EXTREMITIES: 2+ pulses, warm, well-perfused. No cyanosis. No clubbing. No peripheral edema. LOWER EXTREMITIES: 2+ pulses, warm, well-perfused. No calf tenderness. No peripheral edema. NEUROLOGICAL: Cranial nerves II-XII intact. Normal speech, moves eextremities grossly, not participating in confrontation testing, sensory intact PSYCHIATRIC: Flat affect, answers questions with single word sentences SKIN: Warm, dry, normal turgor, no rashes or lesions noted, normal capillary refill. CBCD WBC 10.3 K/mm3 (4.0-10.0) H 09/07/19 07:16 RBC 3.86 M/mm3 (3.60-5.2) 09/07/19 07:16 Hgb 12.2 GM/dL (10.7-15.3) 09/07/19 07:16 Hct 35.3 % (32.4-45.2) 09/07/19 07:16 MCV 91.5 fl (80-96) 09/07/19 07:16 MCHC 34.6 g/dl (32.0-36.0) 09/07/19 07:16 RDW 15.0 % (11.6-15.6) 09/07/19 07:16 Plt Count 227 K/MM3 (134-434) 09/07/19 07:16 MPV 7.9 fl (7.5-11.1) 09/07/19 07:16 CMP Sodium 138 mmol/L (136-145) 09/07/19 07:16 Potassium 3.5 mmol/L (3.5-5.1) 09/07/19 07:16 Chloride 103 mmol/L (98-107) 09/07/19 07:16 Carbon Dioxide 23 mmol/L (21-32) 09/07/19 07:16 Anion Gap 12 MMOL/L (8-16) 09/07/19 07:16 BUN 5.8 mg/dL (7-18) L 09/07/19 07:16 Creatinine 0.4 mg/dL (0.55-1.3) L 09/07/19 07:16 Random Glucose 88 mg/dL (74-106) 09/07/19 07:16 Calcium 8.2 mg/dL (8.5-10.1) L 09/07/19 07:16 Total Bilirubin 0.7 mg/dL (0.2-1) 09/07/19 07:16 AST 24 U/L (15-37) 09/07/19 07:16 ALT 23 U/L (13-61) 09/07/19 07:16 Alkaline Phosphatase 63 U/L (45-117) 09/07/19 07:16 Total Protein 5.6 g/dl (6.4-8.2) L 09/07/19 07:16 Albumin 2.8 g/dl (3.4-5.0) L 09/07/19 07:16 CARDIAC ENZYMES Troponin I < 0.02 ng/ml (0.00-0.05) 09/04/19 20:10 ASSESSMENT/PLAN: 63 year old female, resident at [facility]), with PMH of MS, anxiety, schizoaffective disorder, dementia, and depression. Daughter was present at bedside to assist with history taking and examination. She was sent to the ER from [facility] after she was found to be tachypnic with a fever (daughter stated she thinks she was told 103, may have been 101.3). Per notes, the patient stated she fell down on day of admission, although the daughter said that she has been saying this for the past several weeks, and there have been no reports from the [place] about any falls. Patient only endorsed spinal pain in lower thoracic and lumbar region, which she has had for "a while", and stated that she "wants to see a fundraising specialist". She denied any fevers, chills, nausea, vomiting, diarrhea, abdominal pain, chest pain, palpitations, dizziness , light headedness, dysuria, polyuria, or hematuria. As per daughter, the patient has had a dry cough for the past 2 weeks. She was diagnosed with MS in November 2017, and is currently on Tecfidera. In May 2019, she began to develop dementia. She is AOx3, and recognizes her daughter, but struggles with short term memory recollection and is unable to answer questions in detail. She was admitted to [facility] in on 07/22/19 for a UTI and a fall, and multiple scans found no evidence of any fractures, and cultures were negative. She also had a brain MRi which showed demyelinating disease with no evidence of infarction, no ehancement. As per the daughter, the patient has seen 3 neurologists over the past few months, and her falls have been attributed to MS. Ct of Head completed and showed no evidence of acute intracranial pathology. Decreased attenuation of supratentorial periventricular white matter attributed to demyelination. Ct of thoracic and lumbar spine also performed and demonstrated no compression fracture, subluxation, focal bone destruction or sclerosis. Also, mild degenerative changes in lower T-spine and moderate degenerative dis disease at T12-L1 level. T11-T12 mild right osteophyte comples. L3-L4 mild disc bulge slightly impinging left L3 nerve root. TThis AM, more calm and relaxed, not pperseverating at this time. She does know that she is in the hospital and can specify that it is [facility]. She was to tell me it's September 2019 as well as the name of the president. Mental status appears to be improved possibly from receiving antibiotics for underlying infection. Continue infectious management and does not appear to have MS exacerbation as no new focal deficits. Would benefit from PT, short term rehab if amenable. ABx as per primary team.
[2019-09-08] MEDS: ARTIFICIAL TEARS (POLYVINYL ALCOHOL) OPTH DROPS OU SCH ×2 (10:08→22:29)
[2019-09-08] MEDS: PATIENT'S OWN MEDICATION (NON-FORMULARY) (Dimethyl Fumarate [Tecfidera] 240 MG) PO SCH ×2 (11:10→22:18)
[2019-09-08] MEDS: DOXYCYCLINE INJECTION 100 MG in DEXTROSE 5%-WATER 100 ML IVPB SCH ×2 (11:32→22:23)
[2019-09-08 11:36] LABS: BASO % 0.1 % (0-2.0); HEMATOCRIT 34.7 % (32.4-45.2); HEMOGLOBIN 12.1 GM/dL (10.7-15.3); LYMPH % 9.1 % (8-40); MCH 31.7 pg (25.7-33.7); MCHC 34.8 g/dl (32.0-36.0); MEAN CELL VOLUME 91.2 fl (80-96); MEAN PLT VOLUME 8.5 fl (7.5-11.1); MONO % 5.4 % (3.8-10.2); NEUT % 85.4 % (42.8-82.8); PLATELET COUNT 212 K/MM3 (134-434); RBC 3.81 M/mm3 (3.60-5.2); RDW 14.7 % (11.6-15.6); WHITE BLOOD COUNT 9.7 K/mm3 (4.0-10.0)
[2019-09-08] MEDS ORDERED: DOXYCYCLINE HYCLATE 100 MG VIAL ONE ×2 (11:41→21:56)
[2019-09-08] MEDS ORDERED: DEXTROSE 5%-WATER 200 ML IVPB ONE (11:41)
[2019-09-08] MEDS: ASPIRIN 81 MG CHEWABLE TABLETS PO SCH (11:47)
[2019-09-08] MEDS: clonazePAM 0.5 MG TABLET PO SCH ×4 (11:47→22:18)
[2019-09-08] MEDS: ACETAMINOPHEN 325 MG TABLET (FP) PO PRN (11:47)
[2019-09-08] MEDS: LACTATED RINGERS SOLUTION 1,000 ML/1,000 ML INFUS.BAG IV SCH (12:08)
[2019-09-08 12:12] LABS: ALBUMIN 2.4 g/dl (3.4-5.0); BILIRUBIN,TOTAL 0.5 mg/dL (0.2-1); BLOOD UREA NITROGEN 5.1 mg/dL (7-18); CALCIUM 7.9 mg/dL (8.5-10.1); CREATININE 0.3 mg/dL (0.55-1.3); POTASSIUM 3.3 mmol/L (3.5-5.1); TOT PROT 5.4 g/dl (6.4-8.2)
[2019-09-08] MEDS: POLYETHYLENE GLYCOL 3350 119 GM BTL PO SCH (12:15)
--- NOTE | 2019-09-08 14:46 | PN ---
Progress Note (short form) - Note Progress Note: PULMONARY DAUGHTER IN ATTENDANCE LOW GRADE TEMP NOTED Constitutional: Yes: Calm, Diaphoresis Eyes: Yes: Conjunctiva Clear, EOM Intact HENT: Yes: Atraumatic, Normocephalic Neck: Yes: Supple, Trachea Midline Cardiovascular: Yes: Regular Rate and Rhythm Respiratory: Yes: Diminished (decreased breath sounds at the bases) ...Clubbing: No Gastrointestinal: Yes: Normal Bowel Sounds, Soft. No: Tenderness Edema: No Neurological: Yes: Alert, Oriented Labs: REVIEWED Chest X-ray: Report Reviewed, Image Reviewed Cat Scan: Report Reviewed, Image Reviewed (bibasilar infiltrates L>R) Problem List - Problems (1) Pneumonia Code(s): J18.9 - PNEUMONIA, UNSPECIFIED ORGANISM Assessment/Plan Pneumonia ?aspiration Sepsis/UTI Multiple Sclerosis Schizoaffective Disorder Anxiety/Depression Dementia - agree with IV antibiotics - f/u cultures, send urinary antigens - monitor fever curve, WBC trend - aspiration precautions - start nystatin for thrush - O2 as needed to keep SpO2>90% - DVT prophylaxis - ? JESICA TINOCO MD
--- NOTE | 2019-09-08 16:51 | PN ---
Physical Exam: SUBJECTIVE: Patient seen and examined at bedside. 1 episode of foul smelling diarrhea last night. 100.6 temp overnight. Continuing abx OBJECTIVE: Vital Signs Period Temp Pulse Resp BP Sys/Clemente Pulse Ox Last 24 Hr 98.7 F-99.8 F 88-106 18-20 122-146/55-72 GENERAL: The patient is aoX2. LUNGS: Breath sounds reduced at bases, crackles lessened improving. HEART: Regular rate and rhythm, S1, S2 without murmur, rub or gallop. ABDOMEN: Soft, nontender, nondistended EXTREMITIES: 2+ pulses, warm, well-perfused, no edema. NEUROLOGICAL: Cranial nerves II through XII grossly intact. Normal speech, gait improved today, opening her eyes more today Laboratory Results - last 24 hr 09/08/19 09/08/19 10:30 10:30 WBC 9.7 RBC 3.81 Hgb 12.1 Hct 34.7 MCV 91.2 MCH 31.7 MCHC 34.8 RDW 14.7 Plt Count 212 MPV 8.5 Absolute Neuts (auto) 8.3 H Neutrophils % 85.4 H Lymphocytes % 9.1 Monocytes % 5.4 Eosinophils % 0.0 Basophils % 0.1 Nucleated RBC % 0 Sodium 135 L Potassium 3.3 L Chloride 101 Carbon Dioxide 22 Anion Gap 12 BUN 5.1 L Creatinine 0.3 L Est GFR (CKD-EPI)AfAm 141.23 Est GFR (CKD-EPI)NonAf 121.85 Random Glucose 76 Calcium 7.9 L Total Bilirubin 0.5 AST 25 ALT 23 Alkaline Phosphatase 60 Total Protein 5.4 L Albumin 2.4 L Active Medications Generic Name Dose Route Start Last Admin Trade Name Freq PRN Reason Stop Dose Admin Acetaminophen 650 mg 09/06/19 03:15 09/08/19 11:47 Tylenol - PO 650 mg Q6H PRN Administration FEVER Artificial Tears 1 drop 09/05/19 10:00 09/08/19 10:08 Artificial Tears OU 1 drop BID [facility] Administration Aspirin 81 mg 09/05/19 10:00 09/08/19 11:47 Asa - PO 81 mg DAILY [facility] Administration Atorvastatin Calcium 40 mg 09/05/19 22:00 09/07/19 22:00 Lipitor - PO 40 mg HS [facility] Administration Clonazepam 1 mg 09/05/19 10:00 09/08/19 13:33 Klonopin - PO 1 mg QID [facility] Administration Docusate Sodium 100 mg 09/05/19 22:00 09/07/19 21:57 Colace - PO 100 mg HS [facility] Administration Lactated Ringer's 1,000 ml in 1,000 mls @ 100 mls/hr 09/07/19 08:30 09/08/19 12:08 Lactated Ringers Solution IV Not Given ASDIR [facility] Doxycycline Hyclate 100 mg/ 100 mls @ 100 mls/hr 09/07/19 13:23 09/08/19 11: 32 Dextrose IVPB 100 mls/hr BID [facility] Administration Cefepime HCl 2 gm/ Dextrose 100 mls @ 100 mls/hr 09/07/19 15:00 09/08/19 12: 14 IVPB 100 mls/hr Q8H-IV [facility] Administration Protocol Vancomycin HCl 1,000 mg in 250 mls @ 166.667 mls/hr 09/07/19 15:00 09/08/19 03:55 Vancomycin (Pre-Docked) IVPB 166.667 mls/hr Q12H [facility] Administration Protocol Potassium Chloride 10 meq in 100 mls @ 100 mls/hr 09/08/19 15:15 Potassium Chloride 10 Meq Premix Ivpb - IVPB 09/08/19 18:14 Q60M [facility] Non-Formulary Medication 240 mg 09/06/19 22:00 09/08/19 11:10 Dimethyl Fumarate [Tecfidera] PO 240 mg BID [facility] Administration Nystatin 500,000 units 09/07/19 18:00 09/08/19 11:47 Nystatin Oral Suspension - PO 500,000 units Q6HPO [facility] Administration Polyethylene Glycol 17 gm 09/06/19 10:00 09/08/19 12:15 Miralax (For Daily Use) - PO 17 grams DAILY [facility] Administration Quetiapine Fumarate 12.5 mg 09/08/19 22:00 Seroquel - PO HS [facility] ASSESSMENT/PLAN: - CT spine lumbar + thoracic shows no abscess, 2.5 cm rt lobe mass, L3, L4 stenosis, dilated GD, rt renal cyst - CT head- No fx or bleed on preliminary report, shows air bubble on scalp - CTchest: B/l lower lobe infilitrates Lt>Rt concern for acute PNA, patchy infiltrates in b/l lobes, atelectasis at rt lung base. 63F with PMH of MS, anxiety, schizoaffective disorder, dementia, and depression sent from [facility] after she was found to be tachypnic with a fever of 103. Admitted for management of Sepsis. #Sepsis 2/2 UTI - febrile overnight to 102, recultured and treated with 1gt vanc, cefepime 2gQ8H , doxy 100 BID. UA Cx growing E coli. - WBC 10.3 today, Tecfidera may cause leukopenia - UA 1+ protein, 4+ ketones, nitrite + - CXR: increased interstitial markings but no infiltrate, - Influenza A/B negative - Urinary Cx positive for gram negative lactose fermenting bacilli which is covered by ceftriaxone day 2. Sputum cx growing gram negative nonlactose fermenting bacilli. - Qtc no longer elevated on recent ekg - Blood, urine cx, urine for strep and legionella negative #Aspiration PNA - CT chest showing b/l PNA - broadened coverage zosyn, vanc, cefepime, doxy per ID, doxy - quantifuron, viral panel pending - ordered barium swallow given possible aspiration PNA #Hx of MS - Continue Tecfidera - Neuro seen pt and does not think this is due to Acute MS exacerbation - speech and swallow eval- ordered barium swallow given risk #Hx of urinary retention - Will monitor for urinary output and scan bladder if output is low #Hx of schizoaffective disorder - taper clonazepam very slowly per psych, Seroquel 12.5BID, d/c'd remeron (may be causing prolonged Qtc) #Hx of Hyperlipidemia - Continue Lipitor Visit type - Emergency Visit Emergency Visit: Yes ED Registration Date: 09/04/19 Care time: The patient presented to the Emergency Department on the above date and was hospitalized for further evaluation of their emergent condition. - New Patient This patient is new to me today: No - Critical Care Critical Care patient: No - Discharge Referral [facility]erred to [facility] Med P.C.: No ATTENDING PHYSICIAN STATEMENT I saw and evaluated the patient. I reviewed the resident's note and discussed the case with the resident. I agree with the resident's findings and plan as documented. SUBJECTIVE: OBJECTIVE: ASSESSMENT AND PLAN:
[2019-09-08] MEDS ORDERED: PT OWN MED DRAWER 7, Y5N ONE ×2 (17:48→22:03)
--- NOTE | 2019-09-08 18:14 | PN ---
Progress Note, Physician History of Present Illness: AWAKE, ALERT IN BED TEMPS DOWN TODAY DENIES CHEST PAIN/ DYSPNEA/ COUGH DENIES DYSURIA BC NO GROWTH URINE C/S E COLI CT SHOWS BASILAR INFILTRATES - Current Medication List Current Medications: Active Medications Acetaminophen (Tylenol -) 650 mg PO Q6H PRN PRN Reason: FEVER Last Admin: 09/08/19 11:47 Dose: 650 mg Artificial Tears (Artificial Tears) 1 drop OU BID [facility] Last Admin: 09/08/19 10:08 Dose: 1 drop Aspirin (Asa -) 81 mg PO DAILY [facility] Last Admin: 09/08/19 11:47 Dose: 81 mg Atorvastatin Calcium (Lipitor -) 40 mg PO HS [facility] Last Admin: 09/07/19 22:00 Dose: 40 mg Clonazepam (Klonopin -) 1 mg PO QID [facility] Last Admin: 09/08/19 17:22 Dose: 1 mg Docusate Sodium (Colace -) 100 mg PO HS [facility] Last Admin: 09/07/19 21:57 Dose: 100 mg Lactated Ringer's (Lactated Ringers Solution) 1,000 ml in 1,000 mls @ 100 mls/ hr IV ASDIR [facility] Last Admin: 09/08/19 12:08 Dose: Not Given Doxycycline Hyclate 100 mg/ (Dextrose) 100 mls @ 100 mls/hr IVPB BID [facility] Last Admin: 09/08/19 11:32 Dose: 100 mls/hr Cefepime HCl 2 gm/ Dextrose 100 mls @ 100 mls/hr IVPB Q8H-IV [facility]; Protocol Last Admin: 09/08/19 17:51 Dose: 100 mls/hr Vancomycin HCl (Vancomycin (Pre-Docked)) 1,000 mg in 250 mls @ 166.667 mls/hr IVPB Q12H [facility]; Protocol Last Admin: 09/08/19 15:21 Dose: 166.667 mls/hr Potassium Chloride (Potassium Chloride 10 Meq Premix Ivpb -) 10 meq in 100 mls @ 100 mls/hr IVPB Q60M [facility] Stop: 09/08/19 18:14 Non-Formulary Medication (Dimethyl Fumarate [Tecfidera]) 240 mg PO BID [facility] Last Admin: 09/08/19 11:10 Dose: 240 mg Nystatin (Nystatin Oral Suspension -) 500,000 units PO Q6HPO [facility] Last Admin: 09/08/19 17:22 Dose: 500,000 units Polyethylene Glycol (Miralax (For Daily Use) -) 17 gm PO DAILY [facility] Last Admin: 09/08/19 12:15 Dose: 17 grams Quetiapine Fumarate (Seroquel -) 12.5 mg PO HS [facility] - Objective Vital Signs: Vital Signs Temperature 98.7 F 09/08/19 15:11 Pulse Rate 88 09/08/19 15:11 Respiratory Rate 18 09/08/19 15:11 Blood Pressure 122/55 L 09/08/19 15:11 O2 Sat by Pulse Oximetry (%) 99 09/05/19 03:35 Constitutional: Yes: No Distress Eyes: Yes: Conjunctiva Clear Cardiovascular: Yes: Regular Rate and Rhythm, S1, S2 Respiratory: Yes: Rhonchi Gastrointestinal: Yes: Normal Bowel Sounds, Soft. No: Tenderness Edema: No Labs: CBC, BMP 09/08/19 10:30 09/08/19 10:30 INR, PTT INR 0.99 (0.83-1.09) 09/04/19 20:10 Assessment/Plan UTI R/O SEPSIS SECONDARY TO UTI LLL PNEUMONIA EXACERBATION MS PCN ALLERGY OBTAIN SPUTUM C/S,[employer]ELLA [employer] COVERAGE VANCOMYCIN/ CEFEPIME/ DOXYCYCLINE
[2019-09-08] MEDS: KCL 10 MEQ IVPB 10 MEQ/100 ML INFUS.BAG IVPB SCH ×4 (18:42→23:00)
[2019-09-08] MEDS ORDERED: DEXTROSE 5%-WATER 100 ML IVPB ONE (21:57)
[2019-09-08] MEDS: QUEtiapine FUMARATE 25 MG TABLET PO SCH (22:20)
[2019-09-08] MEDS: ATORVASTATIN CA 40 MG TABLET (FP) PO SCH (22:21)
[2019-09-08] MEDS: DOCUSATE SODIUM 100 MG CAPSULE (FP) PO SCH (22:21)
[2019-09-09] MEDS: NYSTATIN 500,000 UNITS/5 ML SUSPENSION PO SCH ×4 (00:22→17:45)
[2019-09-09] MEDS: KCL 10 MEQ IVPB 10 MEQ/100 ML INFUS.BAG IVPB SCH ×2 (00:23→01:49)
[2019-09-09] MEDS ORDERED: PT OWN MED DRAWER 7, Y5N ONE ×4 (01:41→18:26)
[2019-09-09] MEDS: CEFEPIME 2 GM in DEXTROSE 5%-WATER 100 ML IVPB SCH ×3 (01:50→18:43)
[2019-09-09] MEDS: VANCOMYCIN 1 GRAM (PRE-DOCKED) 1,000 MG/250 ML BAG IVPB SCH ×2 (03:07→17:02)
[2019-09-09] MEDS: ACETAMINOPHEN 325 MG TABLET (FP) PO PRN (04:37)
--- NOTE | 2019-09-09 08:47 | PN ---
Physical Exam: SUBJECTIVE: Patient seen and examined; Patient was febrile again overnight with a T-max of one 1.3 rectally. Continues on. Ordering HCV diagnostic as well as HIV to rule out any occult sources of fever. Can also consider other items on the differential. Viral panel and TB and, CARLA and rheumatoid factor are negative. Replacing potassium as she was 3.3 today. Neutrophils trending down. OBJECTIVE: Vital Signs Period Temp Pulse Resp BP Sys/Clemente Pulse Ox Last 24 Hr 98.7 F-101.3 F 88-103 18-19 122-147/55-80 GENERAL: The patient is awake, alert, and fully oriented, in no acute distress. HEAD: Normal with no signs of trauma. EYES: PERRL, extraocular movements intact, sclera anicteric, conjunctiva clear. No ptosis. ENT: Ears normal, nares patent, oropharynx clear without exudates, moist mucous membranes. NECK: Trachea midline, full range of motion, supple. LUNGS: Breath sounds equal, clear to auscultation bilaterally, no wheezes, no crackles, no accessory muscle use. HEART: Regular rate and rhythm, S1, S2 without murmur, rub or gallop. ABDOMEN: Soft, nontender, nondistended, normoactive bowel sounds, no guarding, no rebound, no hepatosplenomegaly, no masses. EXTREMITIES: 2+ pulses, warm, well-perfused, no edema. NEUROLOGICAL: Cranial nerves II through XII grossly intact. Normal speech, gait not observed. PSYCH: Normal mood, normal affect. SKIN: Warm, dry, normal turgor, no rashes or lesions noted Laboratory Results - last 24 hr 09/07/19 09/08/19 09/08/19 07:16 10:30 10:30 WBC 9.7 RBC 3.81 Hgb 12.1 Hct 34.7 MCV 91.2 MCH 31.7 MCHC 34.8 RDW 14.7 Plt Count 212 MPV 8.5 Absolute Neuts (auto) 8.3 H Neutrophils % 85.4 H Lymphocytes % 9.1 Monocytes % 5.4 Eosinophils % 0.0 Basophils % 0.1 Nucleated RBC % 0 Sodium 135 L Potassium 3.3 L Chloride 101 Carbon Dioxide 22 Anion Gap 12 BUN 5.1 L Creatinine 0.3 L Est GFR (CKD-EPI)AfAm 141.23 Est GFR (CKD-EPI)NonAf 121.85 Random Glucose 76 Calcium 7.9 L Total Bilirubin 0.5 AST 25 ALT 23 Alkaline Phosphatase 60 Total Protein 5.4 L Albumin 2.4 L CARLA Screen Negative Active Medications Generic Name Dose Route Start Last Admin Trade Name Freq PRN Reason Stop Dose Admin Acetaminophen 650 mg 09/06/19 03:15 09/09/19 04:37 Tylenol - PO 650 mg Q6H PRN Administration FEVER Artificial Tears 1 drop 09/05/19 10:00 09/08/19 22:29 Artificial Tears OU 1 drop BID AISSATOU Administration Aspirin 81 mg 09/05/19 10:00 09/08/19 11:47 Asa - PO 81 mg DAILY AISSATOU Administration Atorvastatin Calcium 40 mg 09/05/19 22:00 09/08/19 22:21 Lipitor - PO 40 mg HS AISSATOU Administration Clonazepam 1 mg 09/05/19 10:00 09/08/19 22:18 Klonopin - PO 1 mg QID AISSATOU Administration Docusate Sodium 100 mg 09/05/19 22:00 09/08/19 22:21 Colace - PO Not Given HS AISSATOU Lactated Ringer's 1,000 ml in 1,000 mls @ 100 mls/hr 09/07/19 08:30 09/08/19 12:08 Lactated Ringers Solution IV Not Given ASDIR AISSATOU Doxycycline Hyclate 100 mg/ 100 mls @ 100 mls/hr 09/07/19 13:23 09/08/19 22: 23 Dextrose IVPB 100 mls/hr BID AISSATOU Administration Cefepime HCl 2 gm/ Dextrose 100 mls @ 100 mls/hr 09/07/19 15:00 09/09/19 01: 50 IVPB 100 mls/hr Q8H-IV AISSATOU Administration Protocol Vancomycin HCl 1,000 mg in 250 mls @ 166.667 mls/hr 09/07/19 15:00 09/09/19 03:07 Vancomycin (Pre-Docked) IVPB 166.667 mls/hr Q12H AISSATOU Administration Protocol Non-Formulary Medication 240 mg 09/06/19 22:00 09/08/19 22:18 Dimethyl Fumarate [Tecfidera] PO 240 mg BID AISSATOU Administration Nystatin 500,000 units 09/07/19 18:00 09/09/19 05:23 Nystatin Oral Suspension - PO 500,000 units Q6HPO AISSATOU Administration Polyethylene Glycol 17 gm 09/06/19 10:00 09/08/19 12:15 Miralax (For Daily Use) - PO 17 grams DAILY AISSATOU Administration Quetiapine Fumarate 12.5 mg 09/08/19 22:00 09/08/19 22:20 Seroquel - PO 12.5 mg HS AISSATOU Administration ASSESSMENT/PLAN: Patient is a 63-year-old female with a history of MS presenting to the hospital with a chief complaint of sepsis secondary to likely UTI versus pneumonia, evidence of both objectively. Growing pansensitive E. coli. Continue antibiotics per ID, nystatin started for oral thrush. Seen by psychology and neurology who do not believe this represents an acute MS flare and agree with the changes to her psychiatric medications that were instituted as response to her elevated QTC. She is experienced no acute arrhythmias or issues during her time on the floor at [facility]. Febrile last night so will continue IV abx and monitor; checking for occult sources with HCV, HIV being drawn and TB still pending. -Sepsis 2/2 UTI/CAP (On IV abx, doxy as elevated QT but defer to ID. Pulm following) -Right lung granuloma (CT noted; quantiferon (ordered as no PPD) done and results pending) -Back pain with noted Osteoarthritis (DJD changes seen throughout XR; PRN management; no need for MRI) -Schizoaffective disorder (questionable capacity; on mirtazapine, seroquel, klonopin. -Weakness (PT working with patient; no acute MS flare. Potential component of depression) -Depression (Noted psych input) -History of MS (No acute flare per Dr. Stevenson) FENA: Swallow eval pending, nutrition eval pending, activity as tolerated and will need placed back at her facility. LR. Full Code Visit type - Emergency Visit Emergency Visit: Yes ED Registration Date: 09/04/19 Care time: The patient presented to the Emergency Department on the above date and was hospitalized for further evaluation of their emergent condition. - New Patient This patient is new to me today: No - Critical Care Critical Care patient: No
[2019-09-09] MEDS ORDERED: POTASSIUM CHLORIDE TABS 20 MEQ TABLET.ER (FP) PO ONE ×2 (08:51)
[2019-09-09] MEDS ORDERED: DOXYCYCLINE HYCLATE 100 MG VIAL ONE ×2 (10:15→21:07)
[2019-09-09] MEDS ORDERED: DEXTROSE 5%-WATER 100 ML IVPB ONE ×2 (10:15→21:07)
[2019-09-09] MEDS: DOXYCYCLINE INJECTION 100 MG in DEXTROSE 5%-WATER 100 ML IVPB SCH ×2 (10:20→21:28)
[2019-09-09] MEDS: PATIENT'S OWN MEDICATION (NON-FORMULARY) (Dimethyl Fumarate [Tecfidera] 240 MG) PO SCH ×2 (10:20→21:30)
[2019-09-09] MEDS: LACTATED RINGERS SOLUTION 1,000 ML/1,000 ML INFUS.BAG IV SCH ×2 (10:21→21:37)
[2019-09-09] MEDS: clonazePAM 0.5 MG TABLET PO SCH ×4 (10:21→21:31)
[2019-09-09] MEDS: ASPIRIN 81 MG CHEWABLE TABLETS PO SCH (10:22)
[2019-09-09] MEDS: POLYETHYLENE GLYCOL 3350 119 GM BTL PO SCH (10:31)
[2019-09-09] MEDS: ARTIFICIAL TEARS (POLYVINYL ALCOHOL) OPTH DROPS OU SCH ×2 (10:32→21:30)
[2019-09-09] MEDS ORDERED: LORazepam 2 MG/ML SDV VIAL IVPUSH ONE (11:31)
--- NOTE | 2019-09-09 12:40 | PN ---
Progress Note (short form) - Note Progress Note: PULMONARY VSS/AFEBRILE Constitutional: Yes: Calm, Diaphoresis Eyes: Yes: Conjunctiva Clear, EOM Intact HENT: Yes: Atraumatic, Normocephalic Neck: Yes: Supple, Trachea Midline Cardiovascular: Yes: Regular Rate and Rhythm Respiratory: Yes: Diminished (decreased breath sounds at the bases) ...Clubbing: No Gastrointestinal: Yes: Normal Bowel Sounds, Soft. No: Tenderness Edema: No Neurological: Yes: Alert, Oriented Labs: REVIEWED Chest X-ray: Report Reviewed, Image Reviewed Cat Scan: Report Reviewed, Image Reviewed (bibasilar infiltrates L>R) Problem List - Problems (1) Pneumonia Code(s): J18.9 - PNEUMONIA, UNSPECIFIED ORGANISM Assessment/Plan Pneumonia ?aspiration Sepsis/UTI Multiple Sclerosis Schizoaffective Disorder Anxiety/Depression Dementia - agree with IV antibiotics - monitor fever curve, WBC trend - aspiration precautions - nystatin for thrush - O2 as needed to keep SpO2>90% - DVT prophylaxis - ? JESICA TINOCO MD
--- NOTE | 2019-09-09 14:12 | PN ---
Progress Note (short form) - Note Progress Note: she is out of bed with a moist cough still with intermittent fevers Vital Signs Period Temp Pulse Resp BP Sys/Clemente Pulse Ox Last 24 Hr 98.3 F-101.3 F 88-103 18-19 122-147/55-80 cor-rrr lungs crackles at bases abd soft,nt ext trace edema she has a sacral ulcer CBC, BMP 09/08/19 10:30 09/08/19 10:30 Microbiology 09/07/19 07:03 Blood - Peripheral Venous Blood Culture - Preliminary NO GROWTH OBTAINED AFTER 48 HOURS, INCUBATION TO CONTINUE FOR 3 DAYS. 09/07/19 07:16 Blood - Peripheral Venous Blood Culture - Preliminary NO GROWTH OBTAINED AFTER 48 HOURS, INCUBATION TO CONTINUE FOR 3 DAYS. 09/04/19 21:00 Blood - Peripheral Venous Blood Culture - Preliminary NO GROWTH OBTAINED AFTER 96 HOURS, INCUBATION TO CONTINUE FOR 1 DAYS. 09/04/19 20:10 Blood - Peripheral Venous Blood Culture - Preliminary NO GROWTH OBTAINED AFTER 96 HOURS, INCUBATION TO CONTINUE FOR 1 DAYS. 09/06/19 09:40 Sputum - Expectorated Gram Stain - Final 09/06/19 09:40 Sputum - Expectorated Sputum Culture - Final Yeast Like Organism 09/04/19 22:30 Urine - Urine - Catheterized Urine Culture - Final Escherichia Coli Current Medications Acetaminophen (Tylenol -) 650 mg PO Q6H PRN PRN Reason: FEVER Last Admin: 09/09/19 04:37 Dose: 650 mg Artificial Tears (Artificial Tears) 1 drop OU BID [facility] Last Admin: 09/09/19 10:32 Dose: 1 drop Aspirin (Asa -) 81 mg PO DAILY [facility] Last Admin: 09/09/19 10:22 Dose: 81 mg Atorvastatin Calcium (Lipitor -) 40 mg PO HS [facility] Last Admin: 09/08/19 22:21 Dose: 40 mg Clonazepam (Klonopin -) 1 mg PO QID [facility] Last Admin: 09/09/19 13:41 Dose: 1 mg Docusate Sodium (Colace -) 100 mg PO HS [facility] Last Admin: 09/08/19 22:21 Dose: Not Given Lactated Ringer's (Lactated Ringers Solution) 1,000 ml in 1,000 mls @ 100 mls/ hr IV ASDIR [facility] Last Admin: 09/09/19 10:21 Dose: Not Given Doxycycline Hyclate 100 mg/ (Dextrose) 100 mls @ 100 mls/hr IVPB BID AISSATOU Last Admin: 09/09/19 10:20 Dose: 100 mls/hr Cefepime HCl 2 gm/ Dextrose 100 mls @ 100 mls/hr IVPB Q8H-IV AISSATOU; Protocol Last Admin: 09/09/19 13:24 Dose: 100 mls/hr Vancomycin HCl (Vancomycin (Pre-Docked)) 1,000 mg in 250 mls @ 166.667 mls/hr IVPB Q12H AISSATOU; Protocol Last Admin: 09/09/19 03:07 Dose: 166.667 mls/hr Non-Formulary Medication (Dimethyl Fumarate [Tecfidera]) 240 mg PO BID AISSATOU Last Admin: 09/09/19 10:20 Dose: 240 mg Nystatin (Nystatin Oral Suspension -) 500,000 units PO Q6HPO AISSATOU Last Admin: 09/09/19 12:02 Dose: 500,000 units Polyethylene Glycol (Miralax (For Daily Use) -) 17 gm PO DAILY AISSATOU Last Admin: 09/09/19 10:31 Dose: Not Given Quetiapine Fumarate (Seroquel -) 12.5 mg PO HS AISSATOU Last Admin: 09/08/19 22:20 Dose: 12.5 mg a/p intermittent fevers- ?aspiration consider further evaluation by speech therapy incentive spirometer ordered continue vanco/cefepime/doxy f/u vanco levels MS- f/u with neurology d/w family at bedside
[2019-09-09 16:22] LABS: BASO % 0.3 % (0-2.0); EOS % 0.8 % (0-4.5); HEMATOCRIT 38.1 % (32.4-45.2); HEMOGLOBIN 13.1 GM/dL (10.7-15.3); LYMPH % 9.3 % (8-40); MCH 31.4 pg (25.7-33.7); MCHC 34.4 g/dl (32.0-36.0); MEAN CELL VOLUME 91.1 fl (80-96); MEAN PLT VOLUME 8.8 fl (7.5-11.1); MONO % 8.4 % (3.8-10.2); NEUT % 81.2 % (42.8-82.8); PLATELET COUNT 265 K/MM3 (134-434); RBC 4.18 M/mm3 (3.60-5.2); RDW 14.5 % (11.6-15.6); WHITE BLOOD COUNT 6.6 K/mm3 (4.0-10.0)
[2019-09-09 16:43] LABS: ALBUMIN 2.6 g/dl (3.4-5.0); BILIRUBIN,TOTAL 0.7 mg/dL (0.2-1); BLOOD UREA NITROGEN 6.2 mg/dL (7-18); CALCIUM 8.5 mg/dL (8.5-10.1); CREATININE 0.4 mg/dL (0.55-1.3); POTASSIUM 3.3 mmol/L (3.5-5.1); TOT PROT 6.1 g/dl (6.4-8.2)
[2019-09-09] MEDS: DOCUSATE SODIUM 100 MG CAPSULE (FP) PO SCH (21:25)
[2019-09-09] MEDS: QUEtiapine FUMARATE 25 MG TABLET PO SCH (21:29)
[2019-09-09] MEDS: ATORVASTATIN CA 40 MG TABLET (FP) PO SCH (21:31)
[2019-09-10] MEDS: NYSTATIN 500,000 UNITS/5 ML SUSPENSION PO SCH ×5 (00:39→23:22)
[2019-09-10 01:35] LABS: PREALBUMIN 9.1 mg/dl (20-40)
[2019-09-10 02:24] LABS: ERYTHROCYTE SEDIMENTATION RATE 36 mm/hr (0-30)
[2019-09-10] MEDS: CEFEPIME 2 GM in DEXTROSE 5%-WATER 100 ML IVPB SCH ×3 (02:50→18:01)
[2019-09-10] MEDS: VANCOMYCIN 1 GRAM (PRE-DOCKED) 1,000 MG/250 ML BAG IVPB SCH ×2 (03:55→16:01)
[2019-09-10] MEDS ORDERED: DEXTROSE 5%-WATER 100 ML IVPB ONE (10:05)
[2019-09-10] MEDS ORDERED: DOXYCYCLINE HYCLATE 100 MG VIAL ONE (10:05)
[2019-09-10] MEDS: clonazePAM 0.5 MG TABLET PO SCH ×4 (10:09→21:17)
[2019-09-10] MEDS: ASPIRIN 81 MG CHEWABLE TABLETS PO SCH (10:10)
[2019-09-10] MEDS: LACTATED RINGERS SOLUTION 1,000 ML/1,000 ML INFUS.BAG IV SCH ×2 (10:10→19:49)
[2019-09-10] MEDS: DOXYCYCLINE INJECTION 100 MG in DEXTROSE 5%-WATER 100 ML IVPB SCH (10:10)
[2019-09-10] MEDS: PATIENT'S OWN MEDICATION (NON-FORMULARY) (Dimethyl Fumarate [Tecfidera] 240 MG) PO SCH ×2 (10:11→21:20)
[2019-09-10] MEDS: ARTIFICIAL TEARS (POLYVINYL ALCOHOL) OPTH DROPS OU SCH ×2 (10:19→21:20)
[2019-09-10] MEDS: POLYETHYLENE GLYCOL 3350 119 GM BTL PO SCH (10:19)
[2019-09-10 11:48] LABS: HEMATOCRIT 36.7 % (32.4-45.2); HEMOGLOBIN 12.7 GM/dL (10.7-15.3); MCH 31.3 pg (25.7-33.7); MCHC 34.7 g/dl (32.0-36.0); MEAN CELL VOLUME 90.3 fl (80-96); MEAN PLT VOLUME 8.3 fl (7.5-11.1); PLATELET COUNT 309 K/MM3 (134-434); RBC 4.06 M/mm3 (3.60-5.2); RDW 14.5 % (11.6-15.6); WHITE BLOOD COUNT 6.2 K/mm3 (4.0-10.0)
--- NOTE | 2019-09-10 12:02 | PN ---
Progress Note (short form) - Note Progress Note: PULMONARY KEEPS EYES CLOSED DAUGHTER PRESENT VSS/LOW GRADE TEMPS Constitutional: Yes: Calm, Diaphoresis Eyes: Yes: Conjunctiva Clear, EOM Intact HENT: Yes: Atraumatic, Normocephalic Neck: Yes: Supple, Trachea Midline Cardiovascular: Yes: Regular Rate and Rhythm Respiratory: Yes: Diminished (decreased breath sounds at the bases) ...Clubbing: No Gastrointestinal: Yes: Normal Bowel Sounds, Soft. No: Tenderness Edema: No Neurological: Yes: Alert, Oriented Labs: REVIEWED Chest X-ray: Report Reviewed, Image Reviewed Cat Scan: Report Reviewed, Image Reviewed (bibasilar infiltrates L>R) Problem List - Problems (1) Pneumonia Code(s): J18.9 - PNEUMONIA, UNSPECIFIED ORGANISM Assessment/Plan Pneumonia ?aspiration/incentive kellen/MBS ordered Sepsis/UTI Multiple Sclerosis Schizoaffective Disorder Anxiety/Depression Dementia - agree with IV antibiotics - monitor fever curve, WBC trend - aspiration precautions - nystatin for thrush - O2 as needed to keep SpO2>90% - DVT prophylaxis Kylie TINOCO MD
[2019-09-10 12:06] LABS: BLOOD UREA NITROGEN 3.2 mg/dL (7-18); CALCIUM 8.5 mg/dL (8.5-10.1); CREATININE 0.3 mg/dL (0.55-1.3)
[2019-09-10 12:14] LABS: POTASSIUM 2.8 mmol/L (3.5-5.1)
--- NOTE | 2019-09-10 12:41 | PN ---
Physical Exam: SUBJECTIVE: Patient seen and examined at bedside. Coughing OBJECTIVE: Vital Signs Period Temp Pulse Resp BP Sys/Clemente Pulse Ox Last 24 Hr 99.0 F-99.1 F 96-107 146-150/78-85 Gen: frail appearing, Not oriented HEENT: NACT, dry appearing membranes Neck: no jvd Cardio: rrr, normal s1s2, no mrg Pulm: cta b/l Abd: soft, nontender, nondistended. Stage 1. Sacral ulcer noted by attending at bedside. Ext: no edema Laboratory Results - last 24 hr 09/07/19 09/09/19 09/09/19 17:30 14:56 14:56 WBC 6.6 RBC 4.18 Hgb 13.1 Hct 38.1 MCV 91.1 MCH 31.4 MCHC 34.4 RDW 14.5 Plt Count 265 D MPV 8.8 Absolute Neuts (auto) 5.3 Neutrophils % 81.2 Lymphocytes % 9.3 Monocytes % 8.4 Eosinophils % 0.8 D Basophils % 0.3 Nucleated RBC % 0 ESR 36 H Sodium Potassium Chloride Carbon Dioxide Anion Gap BUN Creatinine Est GFR (CKD-EPI)AfAm Est GFR (CKD-EPI)NonAf Random Glucose Calcium Total Bilirubin AST ALT Alkaline Phosphatase C-Reactive Protein Total Protein Albumin Prealbumin Vancomycin Pre-Dose 6.3 L TB Test (QFT) Nil 0.02 TB Test (QFT) Mitogen 8.22 TB Test (QFT) Antigen 0.03 TB Test (QFT) Negative TB Positive Criteria 09/09/19 09/10/19 09/10/19 14:56 10:49 10:49 WBC 6.2 RBC 4.06 Hgb 12.7 Hct 36.7 MCV 90.3 MCH 31.3 MCHC 34.7 RDW 14.5 Plt Count 309 MPV 8.3 Absolute Neuts (auto) Neutrophils % Lymphocytes % Monocytes % Eosinophils % Basophils % Nucleated RBC % ESR Sodium 137 138 Potassium 3.3 L 2.8 L* Chloride 102 101 Carbon Dioxide 26 27 Anion Gap 9 10 BUN 6.2 L 3.2 L Creatinine 0.4 L 0.3 L Est GFR (CKD-EPI)AfAm 128.47 141.23 Est GFR (CKD-EPI)NonAf 110.85 121.85 Random Glucose 118 H 99 Calcium 8.5 8.5 Total Bilirubin 0.7 AST 28 ALT 28 Alkaline Phosphatase 68 C-Reactive Protein 13.0 H Total Protein 6.1 L Albumin 2.6 L Prealbumin 9.1 L Vancomycin Pre-Dose TB Test (QFT) Nil TB Test (QFT) Mitogen TB Test (QFT) Antigen TB Test (QFT) TB Positive Criteria Active Medications Generic Name Dose Route Start Last Admin Trade Name Freq PRN Reason Stop Dose Admin Acetaminophen 650 mg 09/06/19 03:15 09/09/19 04:37 Tylenol - PO 650 mg Q6H PRN Administration FEVER Artificial Tears 1 drop 09/05/19 10:00 09/10/19 10:19 Artificial Tears OU 1 drop BID AISSATOU Administration Aspirin 81 mg 09/05/19 10:00 09/10/19 10:10 Asa - PO 81 mg DAILY AISSATOU Administration Atorvastatin Calcium 40 mg 09/05/19 22:00 09/09/19 21:31 Lipitor - PO 40 mg HS AISSATOU Administration Clonazepam 1 mg 09/05/19 10:00 09/10/19 10:09 Klonopin - PO 1 mg QID AISSATOU Administration Docusate Sodium 100 mg 09/05/19 22:00 09/09/19 21:25 Colace - PO Not Given HS AISSATOU Lactated Ringer's 1,000 ml in 1,000 mls @ 100 mls/hr 09/07/19 08:30 09/10/19 10:10 Lactated Ringers Solution IV Not Given ASDIR AISSATOU Doxycycline Hyclate 100 mg/ 100 mls @ 100 mls/hr 09/07/19 13:23 09/10/19 10: 10 Dextrose IVPB 100 mls/hr BID AISSATOU Administration Cefepime HCl 2 gm/ Dextrose 100 mls @ 100 mls/hr 09/07/19 15:00 09/10/19 11: 24 IVPB 100 mls/hr Q8H-IV AISSATOU Administration Protocol Vancomycin HCl 1,000 mg in 250 mls @ 166.667 mls/hr 09/07/19 15:00 09/10/19 03:55 Vancomycin (Pre-Docked) IVPB 166.667 mls/hr Q12H AISSATOU Administration Protocol Non-Formulary Medication 240 mg 09/06/19 22:00 09/10/19 10:11 Dimethyl Fumarate [Tecfidera] PO 240 mg BID AISSATOU Administration Nystatin 500,000 units 09/07/19 18:00 09/10/19 11:27 Nystatin Oral Suspension - PO 500,000 units Q6HPO AISSATOU Administration Polyethylene Glycol 17 gm 09/06/19 10:00 09/10/19 10:19 Miralax (For Daily Use) - PO Not Given DAILY AISSATOU Quetiapine Fumarate 12.5 mg 09/08/19 22:00 09/09/19 21:29 Seroquel - PO 12.5 mg HS AISSATOU Administration ASSESSMENT/PLAN: Pt is a 63 y/o F living at [facility] who has PMH MS, anxiety, schizoaffective disorder, dementia, depression and who presented to ED BIBA after being found to be febrile and tachypnic. Sepsis 2/2 UTI vs CAP (? aspiration) - continues to be intermittently febril to 101.3 (09/09 at 5am) - ID & Pulm on board - Cefepime and Vanc - LR Hypokalemia -was repleted yest -K persistently low. Replete again today Weakness -Neuro on board -For EEG -? contribution of MS vs mental status and depression Visit type - Emergency Visit Emergency Visit: No - New Patient This patient is new to me today: Yes Date on this admission: 09/10/19 - Critical Care Critical Care patient: No ATTENDING PHYSICIAN STATEMENT I saw and evaluated the patient. I reviewed the resident's note and discussed the case with the resident. I agree with the resident's findings and plan as documented. SUBJECTIVE: OBJECTIVE: ASSESSMENT AND PLAN:
[2019-09-10] MEDS ORDERED: POTASSIUM CHLORIDE TABS 20 MEQ TABLET.ER (FP) PO ONE (13:05)
[2019-09-10] MEDS ORDERED: KCL 10 MEQ IVPB 10 MEQ/100 ML INFUS.BAG IVPB SCH (13:30)
[2019-09-10] MEDS: KCL 10 MEQ IVPB 10 MEQ/100 ML INFUS.BAG IVPB SCH ×5 (13:45→22:23)
--- NOTE | 2019-09-10 14:06 | EKG ---
Test Reason : Blood Pressure : / mmHG Vent. Rate : 096 BPM Atrial Rate : 096 BPM P-R Int : 122 ms QRS Dur : 132 ms QT Int : 394 ms P-R-T Axes : 053 048 049 degrees QTc Int : 497 ms NORMAL SINUS RHYTHM RIGHT BUNDLE BRANCH BLOCK POSSIBLE INFERIOR INFARCT (CITED ON OR BEFORE 05-SEP-2019) ABNORMAL ECG WHEN COMPARED WITH ECG OF 05-SEP-2019 15:42, NO SIGNIFICANT CHANGE WAS FOUND Confirmed by MD BRII, KARL ([id number]) on 09/10/2019 2:05:47 PM Referred By: Rupert MARTINS Confirmed By:KARL TERESA MD
[2019-09-10 17:38] LABS: BLOOD UREA NITROGEN 6.6 mg/dL (7-18); CALCIUM 8.5 mg/dL (8.5-10.1); CREATININE 0.4 mg/dL (0.55-1.3); POTASSIUM 3.5 mmol/L (3.5-5.1)
[2019-09-10] MEDS ORDERED: PT OWN MED DRAWER 7, Y5N ONE (17:58)
--- NOTE | 2019-09-10 18:57 | PN ---
Teaching Attending Note Name of Resident: Radames Cruz ATTENDING PHYSICIAN STATEMENT I saw and evaluated the patient. I reviewed the resident's note and discussed the case with the resident. I agree with the resident's findings and plan as documented. Placing the patient on Megace. Recheck of the QTC reveals that Zofran would not be appropriate for antinausea medication. She remains hemodynamically stable and afebrile. She walked well with physical therapy but he seems to have a volitional component to her presentation. She will snap back and give 1 word answers but when prompted about the subject she likes such as Anup Davis or her favorite movies she will be able to expound with quite vivid detail. She is actually awake alert and oriented x3 and she does not have any further changes that could be construed with a MS exacerbation. This is consistent with Dr. Willie Newman's assessment, alongside the outpatient neurological assessment she has had. 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 Determined not to be suicidal by Dr. Christen Mariano. We will continue to monitor her on the floor on the medicine service with infectious disease consult, transitioning to p.o. antibiotics in the coming days. She had severe hypokalemia today and it was repleted via IV supplementation. I agree with the rest of the plan as detailed in the resident note, please refer to their documentation for further updates and specifics VS, labs, imaging reviewed NAD, AAO, resting comfortably in bed. RRR s1/2 no mgr Normal muscle tone, moves all 5 extremities with normal apparent strength Neck is supple, trachea midline, no [place] LN Lungs CTAB with sym expansion NT ND +BS no [place] organomegaly CN2-12 wnl; no FND NC AT EOMI PERRLA Persistent flat affect with baseline mood and seeming poor insight or judgment, or at least restricted capacity for assessment of her insight and judgment No skin breakdown or rashes noted Microbiology 09/09/19 14:50 Blood - Peripheral Venous Blood Culture - Preliminary NO GROWTH OBTAINED AFTER 24 HOURS, INCUBATION TO CONTINUE FOR 4 DAYS. 09/09/19 14:56 Blood - Peripheral Venous Blood Culture - Preliminary NO GROWTH OBTAINED AFTER 24 HOURS, INCUBATION TO CONTINUE FOR 4 DAYS. 09/07/19 07:03 Blood - Peripheral Venous Blood Culture - Preliminary NO GROWTH OBTAINED AFTER 72 HOURS, INCUBATION TO CONTINUE FOR 2 DAYS. 09/07/19 07:16 Blood - Peripheral Venous Blood Culture - Preliminary NO GROWTH OBTAINED AFTER 72 HOURS, INCUBATION TO CONTINUE FOR 2 DAYS. 09/04/19 21:00 Blood - Peripheral Venous Blood Culture - Final NO GROWTH AFTER 5 DAYS INCUBATION 09/04/19 20:10 Blood - Peripheral Venous Blood Culture - Final NO GROWTH AFTER 5 DAYS INCUBATION 09/06/19 09:40 Sputum - Expectorated Gram Stain - Final 09/06/19 09:40 Sputum - Expectorated Sputum Culture - Final Yeast Like Organism 09/04/19 22:30 Urine - Urine - Catheterized Urine Culture - Final Escherichia Coli ASSESSMENT AND PLAN: Patient was seen on the floor, today's events detailed above. Problem list is as follows: -Sepsis 2/2 UTI/CAP (On IV abx, doxy as elevated QT but defer to ID. Pulm following) -Right lung granuloma (CT noted; quantiferon (ordered as no PPD) done and results pending) -Back pain with noted Osteoarthritis (DJD changes seen throughout XR; PRN management; no need for MRI) -Schizoaffective disorder (questionable capacity; on mirtazapine, seroquel, klonopin. -Weakness (PT working with patient; no acute MS flare. Potential component of depression) -Depression (Noted psych input) -History of MS (No acute flare per Dr. Stevenson) FENA: Swallow eval pending, nutrition eval pending, activity as tolerated and will need placed back at her facility. LR. Full Code Furthermore we will plan for swallow evaluation tomorrow morning and will transition to p.o. antibiotics if clinically acceptable as per infectious disease consultation
[2019-09-10] MEDS: MEGESTROL ACETATE 400 MG/10 ML UNIT DOSE CUP PO SCH (19:44)
[2019-09-10] MEDS: QUEtiapine FUMARATE 25 MG TABLET PO SCH (21:17)
[2019-09-10] MEDS: DOCUSATE SODIUM 100 MG CAPSULE (FP) PO SCH (21:20)
[2019-09-10] MEDS: ATORVASTATIN CA 40 MG TABLET (FP) PO SCH (21:20)
[2019-09-11] MEDS: CEFEPIME 2 GM in DEXTROSE 5%-WATER 100 ML IVPB SCH ×3 (02:10→17:52)
[2019-09-11] MEDS: VANCOMYCIN 1 GRAM (PRE-DOCKED) 1,000 MG/250 ML BAG IVPB SCH ×2 (02:52→15:27)
[2019-09-11] MEDS: NYSTATIN 500,000 UNITS/5 ML SUSPENSION PO SCH ×3 (05:56→17:52)
--- NOTE | 2019-09-11 08:45 | PN ---
Progress Note (short form) - Note Progress Note: Neurology CHIEF COMPLAINT: Sent from [facility] after she was found to be tachypnic with a fever of 103 PCP: Dr. Crystal HISTORY OF PRESENT ILLNESS: This is a 63 year old female, resident at [facility]), with PMH of MS, anxiety, schizoaffective disorder, dementia, and depression. Daughter was present at bedside to assist with history taking and examination. She was sent to the ER from [facility] after she was found to be tachypnic with a fever (daughter stated she thinks she was told 103, may have been 101.3). Per notes, the patient stated she fell down on day of admission, although the daughter said that she has been saying this for the past several weeks, and there have been no reports from the [place] about any falls. Patient only endorsed spinal pain in lower thoracic and lumbar region, which she has had for "a while ", and stated that she "wants to see a credit card specialist". She denied any fevers , chills, nausea, vomiting, diarrhea, abdominal pain, chest pain, palpitations, dizziness, light headedness, dysuria, polyuria, or hematuria. As per daughter, the patient has had a dry cough for the past 2 weeks. She was diagnosed with MS in November 2017, and is currently on Tecfidera. In May 2019, she began to develop dementia. She is AOx3, and recognizes her daughter, but struggles with short term memory recollection and is unable to answer questions in detail. She was admitted to [facility] in on 07/22/19 for a UTI and a fall, and multiple scans found no evidence of any fractures, and cultures were negative. She also had a brain MRi which showed demyelinating disease with no evidence of infarction, no ehancement. As per the daughter, the patient has seen 3 neurologists over the past few months, and her falls have been attributed to MS. Ct of Head completed and showed no evidence of acute intracranial pathology. Decreased attenuation of supratentorial periventricular white matter attributed to demyelination. Ct of thoracic and lumbar spine also performed and demonstrated no compression fracture, subluxation, focal bone destruction or sclerosis. Also, mild degenerative changes in lower T-spine and moderate degenerative dis disease at T12-L1 level. T11-T12 mild right osteophyte comples. L3-L4 mild disc bulge slightly impinging left L3 nerve root. This AM, more calm and relaxed, not pperseverating at this time but aggitated with nurses aid who is trying to feed her at bedside. Neurologically, does not seem to have any focal deficits or changes, reviewed notes from the weekend and no neurologic events noted. Active Medications Acetaminophen (Tylenol -) 650 mg PO Q6H PRN PRN Reason: FEVER Last Admin: 09/09/19 04:37 Dose: 650 mg Artificial Tears (Artificial Tears) 1 drop OU BID [facility] Last Admin: 09/10/19 21:20 Dose: 1 drop Aspirin (Asa -) 81 mg PO DAILY [facility] Last Admin: 09/10/19 10:10 Dose: 81 mg Atorvastatin Calcium (Lipitor -) 40 mg PO HS [facility] Last Admin: 09/10/19 21:20 Dose: 40 mg Clonazepam (Klonopin -) 1 mg PO QID [facility] Last Admin: 09/10/19 21:17 Dose: 1 mg Docusate Sodium (Colace -) 100 mg PO HS [facility] Last Admin: 09/10/19 21:20 Dose: 100 mg Lactated Ringer's (Lactated Ringers Solution) 1,000 ml in 1,000 mls @ 100 mls/ hr IV ASDIR [facility] Last Admin: 09/10/19 19:49 Dose: 100 mls/hr Cefepime HCl 2 gm/ Dextrose 100 mls @ 100 mls/hr IVPB Q8H-IV [facility]; Protocol Last Admin: 09/11/19 02:10 Dose: 100 mls/hr Vancomycin HCl (Vancomycin (Pre-Docked)) 1,000 mg in 250 mls @ 166.667 mls/hr IVPB Q12H [facility]; Protocol Last Admin: 09/11/19 02:52 Dose: 166.667 mls/hr Megestrol Acetate (Megace Oral Suspension -) 400 mg PO DAILY [facility] Last Admin: 09/10/19 19:44 Dose: 400 mg Non-Formulary Medication (Dimethyl Fumarate [Tecfidera]) 240 mg PO BID [facility] Last Admin: 09/10/19 21:20 Dose: 240 mg Nystatin (Nystatin Oral Suspension -) 500,000 units PO Q6HPO [facility] Last Admin: 09/11/19 05:56 Dose: 500,000 units Polyethylene Glycol (Miralax (For Daily Use) -) 17 gm PO DAILY [facility] Last Admin: 09/10/19 10:19 Dose: Not Given Quetiapine Fumarate (Seroquel -) 12.5 mg PO HS [facility] Last Admin: 09/10/19 21:17 Dose: 12.5 mg PHYSICAL EXAMINATION Vital Signs Period Temp Pulse Resp BP Sys/Clemente Pulse Ox Last 24 Hr 97.3 F-98.8 F 90-104 17-20 127-150/70-79 92 GENERAL: AOx3 HEAD: Normal with no signs of trauma. EYES: Pupils equal, round and reactive to light, extraocular movements intact, sclera anicteric, conjunctiva clear. No lid lag. EARS, NOSE, THROAT: Ears normal, nares patent, oropharynx clear without exudates. Moist mucous membranes. NECK: Normal range of motion, supple without lymphadenopathy, JVD, or masses. LUNGS: Decreased sounds equal, clear to auscultation bilaterally. No wheezes, and no crackles. No accessory muscle use. HEART: Regular rate and rhythm, normal S1 and S2 without murmur, rub or gallop. ABDOMEN: Soft, nontender, not distended, normoactive bowel sounds, no guarding, no rebound, no masses. No hepatomegaly or splenomegaly. MUSCULOSKELETAL: spinal and paraspinal tenderness in lower thoracic and lumbar vertebrae UPPER EXTREMITIES: 2+ pulses, warm, well-perfused. No cyanosis. No clubbing. No peripheral edema. LOWER EXTREMITIES: 2+ pulses, warm, well-perfused. No calf tenderness. No peripheral edema. NEUROLOGICAL: Cranial nerves II-XII intact. Normal speech, moves eextremities grossly, not participating in confrontation testing, sensory intact PSYCHIATRIC: Flat affect, answers questions with single word sentences SKIN: Warm, dry, normal turgor, no rashes or lesions noted, normal capillary refill. CBCD WBC 6.2 K/mm3 (4.0-10.0) 09/10/19 10:49 RBC 4.06 M/mm3 (3.60-5.2) 09/10/19 10:49 Hgb 12.7 GM/dL (10.7-15.3) 09/10/19 10:49 Hct 36.7 % (32.4-45.2) 09/10/19 10:49 MCV 90.3 fl (80-96) 09/10/19 10:49 MCHC 34.7 g/dl (32.0-36.0) 09/10/19 10:49 RDW 14.5 % (11.6-15.6) 09/10/19 10:49 Plt Count 309 K/MM3 (134-434) 09/10/19 10:49 MPV 8.3 fl (7.5-11.1) 09/10/19 10:49 CMP Sodium 138 mmol/L (136-145) 09/10/19 16:38 Potassium 3.5 mmol/L (3.5-5.1) 09/10/19 16:38 Chloride 102 mmol/L (98-107) 09/10/19 16:38 Carbon Dioxide 24 mmol/L (21-32) 09/10/19 16:38 Anion Gap 12 MMOL/L (8-16) 09/10/19 16:38 BUN 6.6 mg/dL (7-18) L 09/10/19 16:38 Creatinine 0.4 mg/dL (0.55-1.3) L 09/10/19 16:38 Random Glucose 117 mg/dL (74-106) H 09/10/19 16:38 Calcium 8.5 mg/dL (8.5-10.1) 09/10/19 16:38 Total Bilirubin 0.7 mg/dL (0.2-1) 09/09/19 14:56 AST 28 U/L (15-37) 09/09/19 14:56 ALT 28 U/L (13-61) 09/09/19 14:56 Alkaline Phosphatase 68 U/L (45-117) 09/09/19 14:56 Total Protein 6.1 g/dl (6.4-8.2) L 09/09/19 14:56 Albumin 2.6 g/dl (3.4-5.0) L 09/09/19 14:56 CARDIAC ENZYMES Troponin I < 0.02 ng/ml (0.00-0.05) 09/04/19 20:10 ASSESSMENT/PLAN: 63 year old female, resident at [facility] ([facility]), with PMH of MS, anxiety, schizoaffective disorder, dementia, and depression. Daughter was present at bedside to assist with history taking and examination. She was sent to the ER from [facility] after she was found to be tachypnic with a fever (daughter stated she thinks she was told 103, may have been 101.3). Per notes, the patient stated she fell down on day of admission, although the daughter said that she has been saying this for the past several weeks, and there have been no reports from the [place] about any falls. Patient only endorsed spinal pain in lower thoracic and lumbar region, which she has had for "a while", and stated that she "wants to see a credit card specialist". She denied any fevers, chills, nausea, vomiting, diarrhea, abdominal pain, chest pain, palpitations, dizziness , light headedness, dysuria, polyuria, or hematuria. As per daughter, the patient has had a dry cough for the past 2 weeks. She was diagnosed with MS in November 2017, and is currently on Tecfidera. In May 2019, she began to develop dementia. She is AOx3, and recognizes her daughter, but struggles with short term memory recollection and is unable to answer questions in detail. She was admitted to [facility] in on 07/22/19 for a UTI and a fall, and multiple scans found no evidence of any fractures, and cultures were negative. She also had a brain MRi which showed demyelinating disease with no evidence of infarction, no ehancement. As per the daughter, the patient has seen 3 neurologists over the past few months, and her falls have been attributed to MS. Ct of Head completed and showed no evidence of acute intracranial pathology. Decreased attenuation of supratentorial periventricular white matter attributed to demyelination. Ct of thoracic and lumbar spine also performed and demonstrated no compression fracture, subluxation, focal bone destruction or sclerosis. Also, mild degenerative changes in lower T-spine and moderate degenerative dis disease at T12-L1 level. T11-T12 mild right osteophyte comples. L3-L4 mild disc bulge slightly impinging left L3 nerve root. TThis AM, more calm and relaxed, not pperseverating at this time but aggitated with nurses aid who is trying to feed her at bedside. Neurologically, does not seem to have any focal deficits or changes, reviewed notes from the weekend and no neurologic events noted. Continue infectious management and does not appear to have MS exacerbation as no new focal deficits. Would benefit from PT, short term rehab if amenable. ABx as per primary team.
[2019-09-11 09:26] LABS: BASO % 0.3 % (0-2.0); EOS % 2.5 % (0-4.5); HEMATOCRIT 35.9 % (32.4-45.2); HEMOGLOBIN 12.2 GM/dL (10.7-15.3); LYMPH % 12.8 % (8-40); MCH 30.7 pg (25.7-33.7); MCHC 34.1 g/dl (32.0-36.0); MEAN CELL VOLUME 89.9 fl (80-96); MEAN PLT VOLUME 7.5 fl (7.5-11.1); MONO % 11.5 % (3.8-10.2); NEUT % 72.9 % (42.8-82.8); PLATELET COUNT 348 K/MM3 (134-434); RBC 3.99 M/mm3 (3.60-5.2); RDW 14.8 % (11.6-15.6)
[2019-09-11 09:54] LABS: ALBUMIN 2.4 g/dl (3.4-5.0); BILIRUBIN,TOTAL 1.2 mg/dL (0.2-1); BLOOD UREA NITROGEN 6.6 mg/dL (7-18); CALCIUM 8.5 mg/dL (8.5-10.1); CREATININE 0.4 mg/dL (0.55-1.3); MAGNESIUM 2.1 mg/dL (1.8-2.4); PHOSPHOROUS 2.3 mg/dL (2.5-4.9); POTASSIUM 3.3 mmol/L (3.5-5.1); TOT PROT 5.6 g/dl (6.4-8.2)
[2019-09-11] MEDS: POLYETHYLENE GLYCOL 3350 119 GM BTL PO SCH (10:21)
[2019-09-11] MEDS: clonazePAM 0.5 MG TABLET PO SCH ×4 (10:26→21:41)
[2019-09-11] MEDS: ASPIRIN 81 MG CHEWABLE TABLETS PO SCH (10:26)
[2019-09-11] MEDS: PATIENT'S OWN MEDICATION (NON-FORMULARY) (Dimethyl Fumarate [Tecfidera] 240 MG) PO SCH ×2 (10:27→21:42)
[2019-09-11] MEDS: MEGESTROL ACETATE 400 MG/10 ML UNIT DOSE CUP PO SCH (10:27)
[2019-09-11] MEDS: LACTATED RINGERS SOLUTION 1,000 ML/1,000 ML INFUS.BAG IV SCH (10:33)
[2019-09-11] MEDS: ARTIFICIAL TEARS (POLYVINYL ALCOHOL) OPTH DROPS OU SCH ×2 (10:40→21:50)
[2019-09-11] MEDS ORDERED: PT OWN MED DRAWER 7, Y5N ONE ×2 (10:47→17:48)
--- NOTE | 2019-09-11 12:30 | PN ---
Progress Note, Physician History of Present Illness: AWAKE, ALERT IN BED TEMPS DOWN DENIES CHEST PAIN/ DYSPNEA/ COUGH DENIES DYSURIA BC NO GROWTH URINE C/S E COLI CT SHOWS BASILAR INFILTRATES - Current Medication List Current Medications: Active Medications Acetaminophen (Tylenol -) 650 mg PO Q6H PRN PRN Reason: FEVER Last Admin: 09/09/19 04:37 Dose: 650 mg Artificial Tears (Artificial Tears) 1 drop OU BID [facility] Last Admin: 09/11/19 10:40 Dose: 1 drop Aspirin (Asa -) 81 mg PO DAILY [facility] Last Admin: 09/11/19 10:26 Dose: 81 mg Atorvastatin Calcium (Lipitor -) 40 mg PO HS [facility] Last Admin: 09/10/19 21:20 Dose: 40 mg Clonazepam (Klonopin -) 1 mg PO QID [facility] Last Admin: 09/11/19 10:26 Dose: 1 mg Docusate Sodium (Colace -) 100 mg PO HS [facility] Last Admin: 09/10/19 21:20 Dose: 100 mg Lactated Ringer's (Lactated Ringers Solution) 1,000 ml in 1,000 mls @ 100 mls/ hr IV ASDIR [facility] Last Admin: 09/11/19 10:33 Dose: Not Given Cefepime HCl 2 gm/ Dextrose 100 mls @ 100 mls/hr IVPB Q8H-IV [facility]; Protocol Last Admin: 09/11/19 10:36 Dose: 100 mls/hr Vancomycin HCl (Vancomycin (Pre-Docked)) 1,000 mg in 250 mls @ 166.667 mls/hr IVPB Q12H [facility]; Protocol Last Admin: 09/11/19 02:52 Dose: 166.667 mls/hr Megestrol Acetate (Megace Oral Suspension -) 400 mg PO DAILY [facility] Last Admin: 09/11/19 10:27 Dose: 400 mg Non-Formulary Medication (Dimethyl Fumarate [Tecfidera]) 240 mg PO BID [facility] Last Admin: 09/11/19 10:27 Dose: 240 mg Nystatin (Nystatin Oral Suspension -) 500,000 units PO Q6HPO [facility] Last Admin: 09/11/19 12:21 Dose: 500,000 units Polyethylene Glycol (Miralax (For Daily Use) -) 17 gm PO DAILY [facility] Last Admin: 09/11/19 10:21 Dose: 17 grams Quetiapine Fumarate (Seroquel -) 12.5 mg PO HS [facility] Last Admin: 09/10/19 21:17 Dose: 12.5 mg - Objective Vital Signs: Vital Signs Temperature 98.6 F 09/11/19 06:00 Pulse Rate 104 H 09/11/19 06:00 Respiratory Rate 18 09/11/19 06:00 Blood Pressure 127/79 09/11/19 06:00 O2 Sat by Pulse Oximetry (%) 92 L 09/10/19 09:00 Constitutional: Yes: No Distress Cardiovascular: Yes: Regular Rate and Rhythm, S1, S2 Respiratory: Yes: Rhonchi Gastrointestinal: Yes: Normal Bowel Sounds, Soft. No: Tenderness Edema: No Labs: CBC, BMP 09/11/19 08:57 09/11/19 08:57 INR, PTT INR 0.99 (0.83-1.09) 09/04/19 20:10 Assessment/Plan UTI R/O SEPSIS SECONDARY TO UTI PNEUMONIA ? ASPIRATION EXACERBATION MS PCN ALLERGY OBTAIN SPUTUM C/S,LEGIONELLA AG CONTINUE VANCOMYCIN/ CEFEPIME/ DOXYCYCLINE
--- NOTE | 2019-09-11 13:09 | PN ---
Progress Note, Physician History of Present Illness: PULMONARY AWAKE,ALERT,COMFORTABLE,-RESP DISTRESS - Current Medication List Current Medications: Active Medications Acetaminophen (Tylenol -) 650 mg PO Q6H PRN PRN Reason: FEVER Last Admin: 09/09/19 04:37 Dose: 650 mg Artificial Tears (Artificial Tears) 1 drop OU BID [facility] Last Admin: 09/11/19 10:40 Dose: 1 drop Aspirin (Asa -) 81 mg PO DAILY [facility] Last Admin: 09/11/19 10:26 Dose: 81 mg Atorvastatin Calcium (Lipitor -) 40 mg PO HS [facility] Last Admin: 09/10/19 21:20 Dose: 40 mg Clonazepam (Klonopin -) 1 mg PO QID [facility] Last Admin: 09/11/19 10:26 Dose: 1 mg Docusate Sodium (Colace -) 100 mg PO [facility] Last Admin: 09/10/19 21:20 Dose: 100 mg Lactated Ringer's (Lactated Ringers Solution) 1,000 ml in 1,000 mls @ 100 mls/ hr IV ASDIR [facility] Last Admin: 09/11/19 10:33 Dose: Not Given Cefepime HCl 2 gm/ Dextrose 100 mls @ 100 mls/hr IVPB Q8H-IV [facility]; Protocol Last Admin: 09/11/19 10:36 Dose: 100 mls/hr Vancomycin HCl (Vancomycin (Pre-Docked)) 1,000 mg in 250 mls @ 166.667 mls/hr IVPB Q12H [facility]; Protocol Last Admin: 09/11/19 02:52 Dose: 166.667 mls/hr Megestrol Acetate (Megace Oral Suspension -) 400 mg PO DAILY [facility] Last Admin: 09/11/19 10:27 Dose: 400 mg Non-Formulary Medication (Dimethyl Fumarate [Tecfidera]) 240 mg PO BID [facility] Last Admin: 09/11/19 10:27 Dose: 240 mg Nystatin (Nystatin Oral Suspension -) 500,000 units PO Q6HPO [facility] Last Admin: 09/11/19 12:21 Dose: 500,000 units Polyethylene Glycol (Miralax (For Daily Use) -) 17 gm PO DAILY [facility] Last Admin: 09/11/19 10:21 Dose: 17 grams Quetiapine Fumarate (Seroquel -) 12.5 mg PO HS [facility] Last Admin: 09/10/19 21:17 Dose: 12.5 mg - Objective Vital Signs: Vital Signs Temperature 98.6 F 09/11/19 06:00 Pulse Rate 104 H 09/11/19 06:00 Respiratory Rate 18 09/11/19 06:00 Blood Pressure 127/79 09/11/19 06:00 O2 Sat by Pulse Oximetry (%) 92 L 09/11/19 09:00 Constitutional: Yes: Calm, Thin Eyes: Yes: WNL HENT: Yes: WNL Neck: Yes: WNL Cardiovascular: Yes: Regular Rate and Rhythm, S1, S2 Respiratory: Yes: Diminished Gastrointestinal: Yes: Normal Bowel Sounds, Soft Extremities: Yes: WNL Edema: No Labs: CBC, BMP 09/11/19 08:57 09/11/19 08:57 INR, PTT INR 0.99 (0.83-1.09) 09/04/19 20:10 Problem List - Problems (1) Pneumonia Code(s): J18.9 - PNEUMONIA, UNSPECIFIED ORGANISM (2) Multiple sclerosis Code(s): G35 - MULTIPLE SCLEROSIS Assessment/Plan Problem List - Problems (1) Pneumonia Code(s): J18.9 - PNEUMONIA, UNSPECIFIED ORGANISM Assessment/Plan Pneumonia ?aspiration/incentive kellen/MBS ordered Sepsis/UTI Multiple Sclerosis Schizoaffective Disorder Anxiety/Depression Dementia - IV antibiotics - aspiration precautions - nystatin f - O2 as needed to keep SpO2>90% - DVT prophylaxis DR CHUNG
--- NOTE | 2019-09-11 14:02 | PN ---
Progress Note, [employer] - Note Progress Note: 63 yo female seen at bedside for follow up to swallow eval with recommendations for regular solids with thin liquids. Chart review and medical charge entry specialist reported poor oral intake. Appetite stimulant ordered and may assist with getting pt to eat more. MBS ordered 09/08) but pt continue to demonstrate confusion and diminished ability to follow directive. [employer] spoke with medical charge entry specialist and determined that MBS should be deferred for today. [employer] will speak with family members before conducting a MBS procedure. Re: continue regular solids with thin liquids as tolerated. Continue appetite stimulant. Observe standard aspiration precautions. MBS to be conducted later this week. Results given to medical charge entry specialist verbally and to PCP via chart. [employer] to follow up.
--- NOTE | 2019-09-11 19:03 | PN ---
Physical Exam: SUBJECTIVE: Patient seen and examined at bedside. No acute events. Pt still alert and oriented to place, year, and name but with severe dementia stating she wants help taking off her pants. Afebrile overnight. OBJECTIVE: Vital Signs Period Temp Pulse Resp BP Sys/Clemente Pulse Ox Last 24 Hr 95 F-98.6 F 94-104 17-20 127-143/71-92 92 GENERAL: The patient is awake, alert, and fully oriented, in no acute distress. NECK: supple. LUNGS: Breath sounds equal, clear to auscultation bilaterally, no wheezes, no crackles, no accessory muscle use. HEART: Regular rate and rhythm, S1, S2 without murmur, rub or gallop. ABDOMEN: Soft, nontender, nondistended. EXTREMITIES: 2+ pulses, warm, well-perfused, no edema. NEUROLOGICAL: unable to assess. PSYCH: Normal mood, normal affect. Laboratory Results - last 24 hr 09/09/19 09/11/19 09/11/19 14:56 08:57 08:57 WBC 8.0 RBC 3.99 Hgb 12.2 Hct 35.9 MCV 89.9 MCH 30.7 MCHC 34.1 RDW 14.8 Plt Count 348 MPV 7.5 Absolute Neuts (auto) 5.8 Neutrophils % 72.9 Lymphocytes % 12.8 D Monocytes % 11.5 H Eosinophils % 2.5 D Basophils % 0.3 Nucleated RBC % 0 ESR Cancelled Sodium Potassium Chloride Carbon Dioxide Anion Gap BUN Creatinine Est GFR (CKD-EPI)AfAm Est GFR (CKD-EPI)NonAf Random Glucose Calcium Phosphorus Magnesium Total Bilirubin AST ALT Alkaline Phosphatase Total Protein Albumin Hep C Ab Diagnostic <0.1 HIV 1&2 Ag/Ab, 4th Gen Non reactive 09/11/19 08:57 WBC RBC Hgb Hct MCV MCH MCHC RDW Plt Count MPV Absolute Neuts (auto) Neutrophils % Lymphocytes % Monocytes % Eosinophils % Basophils % Nucleated RBC % ESR Sodium 138 Potassium 3.3 L Chloride 104 Carbon Dioxide 26 Anion Gap 8 BUN 6.6 L Creatinine 0.4 L Est GFR (CKD-EPI)AfAm 128.47 Est GFR (CKD-EPI)NonAf 110.85 Random Glucose 81 Calcium 8.5 Phosphorus 2.3 L Magnesium 2.1 Total Bilirubin 1.2 H AST 16 ALT 22 Alkaline Phosphatase 63 Total Protein 5.6 L Albumin 2.4 L Hep C Ab Diagnostic HIV 1&2 Ag/Ab, 4th Gen Active Medications Generic Name Dose Route Start Last Admin Trade Name Jasonq PRN Reason Stop Dose Admin Acetaminophen 650 mg 09/06/19 03:15 09/09/19 04:37 Tylenol - PO 650 mg Q6H PRN Administration FEVER Artificial Tears 1 drop 09/05/19 10:00 09/11/19 10:40 Artificial Tears OU 1 drop BID [facility] Administration Aspirin 81 mg 09/05/19 10:00 09/11/19 10:26 Asa - PO 81 mg DAILY [facility] Administration Atorvastatin Calcium 40 mg 09/05/19 22:00 09/10/19 21:20 Lipitor - PO 40 mg HS [facility] Administration Clonazepam 1 mg 09/05/19 10:00 09/11/19 17:52 Klonopin - PO 1 mg QID [facility] Administration Docusate Sodium 100 mg 09/05/19 22:00 09/10/19 21:20 Colace - PO 100 mg HS [facility] Administration Lactated Ringer's 1,000 ml in 1,000 mls @ 100 mls/hr 09/07/19 08:30 09/11/19 10:33 Lactated Ringers Solution IV Not Given ASDIR AISSATOU Cefepime HCl 2 gm/ Dextrose 100 mls @ 100 mls/hr 09/07/19 15:00 09/11/19 17: 52 IVPB 100 mls/hr Q8H-IV [facility] Administration Protocol Vancomycin HCl 1,000 mg in 250 mls @ 166.667 mls/hr 09/07/19 15:00 09/11/19 15:27 Vancomycin (Pre-Docked) IVPB 166.667 mls/hr Q12H [facility] Administration Protocol Megestrol Acetate 400 mg 09/10/19 18:45 09/11/19 10:27 Megace Oral Suspension - PO 400 mg DAILY [facility] Administration Non-Formulary Medication 240 mg 09/06/19 22:00 09/11/19 10:27 Dimethyl Fumarate [Tecfidera] PO 240 mg BID [facility] Administration Nystatin 500,000 units 09/07/19 18:00 09/11/19 17:52 Nystatin Oral Suspension - PO 500,000 units Q6HPO [facility] Administration Polyethylene Glycol 17 gm 09/06/19 10:00 09/11/19 10:21 Miralax (For Daily Use) - PO 17 grams DAILY [facility] Administration Quetiapine Fumarate 12.5 mg 09/08/19 22:00 09/10/19 21:17 Seroquel - PO 12.5 mg HS [facility] Administration ASSESSMENT/PLAN: - CT spine lumbar + thoracic shows no abscess, 2.5 cm rt lobe mass, L3, L4 stenosis, dilated GD, rt renal cyst - CT head- No fx or bleed on preliminary report, shows air bubble on scalp - CTchest: B/l lower lobe infilitrates Lt>Rt concern for acute PNA, patchy infiltrates in b/l lobes, atelectasis at rt lung base. 63F with PMH of MS, anxiety, schizoaffective disorder, dementia, and depression sent from [facility] after she was found to be tachypnic with a fever of 103. Admitted for management of Sepsis. #Sepsis 2/2 UTI - febrile overnight to 102, recultured and treated with 1gt vanc, cefepime 2gQ8H , UA Cx growing E coli. D/c'd doxy given atypicals negative - WBC 10.3 today, Tecfidera may cause leukopenia - UA 1+ protein, 4+ ketones, nitrite + - CXR: increased interstitial markings but no infiltrate, - Influenza A/B negative - Urinary Cx positive for gram negative lactose fermenting bacilli which is covered by ceftriaxone day 2. Sputum cx growing gram negative nonlactose fermenting bacilli. - Qtc no longer elevated on recent ekg - Blood Cx negative urine cx growing e coli cheng sensitive #Aspiration PNA - CT chest showing b/l PNA - continue abx as above - Afebrile >24 hrs likely can be d/c'd on PO augmentin - quantifuron negative - ordered barium swallow given possible aspiration PNA #Hx of MS - Continue Tecfidera - Neuro seen pt and does not think this is due to Acute MS exacerbation - speech and swallow eval- continue regular solids with thin liquids as tolerated, start on appetite stimulant(megestrol) and obtain MBS later in week given pt confused mental status unable to participate. #Hx of urinary retention - Will monitor for urinary output and scan bladder if output is low #Hx of schizoaffective disorder - taper clonazepam very slowly per psych, Seroquel 12.5BID, d/c'd remeron (may be causing prolonged Qtc) #Hx of Hyperlipidemia - Continue Lipitor Visit type - Emergency Visit Emergency Visit: Yes ED Registration Date: 09/04/19 Care time: The patient presented to the Emergency Department on the above date and was hospitalized for further evaluation of their emergent condition. - New Patient This patient is new to me today: No - Critical Care Critical Care patient: No - Discharge Referral Referred to [facility] Med P.C.: No ATTENDING PHYSICIAN STATEMENT I saw and evaluated the patient. I reviewed the resident's note and discussed the case with the resident. I agree with the resident's findings and plan as documented. SUBJECTIVE: OBJECTIVE: ASSESSMENT AND PLAN:
--- NOTE | 2019-09-11 19:20 | PN ---
Teaching Attending Note Name of Resident: Panda Dawson ATTENDING PHYSICIAN STATEMENT I saw and evaluated the patient. I reviewed the resident's note and discussed the case with the resident. I agree with the resident's findings and plan as documented. Seen and examined; please see resident note for further historical information. I personally verified all [place] historical information and exam findings. Personally interpreted all imaging and diagnostics and reviewed appropriate consults. I reviewed all labs and vital signs as per resident note and EMR as documented. I agree with the above assessment and plan unless supplemented by myself in the following. She is more interactive today, did eat some of her breakfast per nursing, will update family VS, labs, imaging reviewed NAD, AAO, resting comfortably in bed. RRR s1/2 no mgr Normal muscle tone, moves all 5 extremities with normal apparent strength Neck is supple, trachea midline, no [place] LN Lungs CTAB with sym expansion NT ND +BS no h[place] organomegaly CN2-12 wnl; no FND NC AT EOMI PERRLA Persistent flat affect with baseline mood and seeming poor insight or judgment, or at least restricted capacity for assessment of her insight and judgment No skin breakdown or rashes noted Microbiology 09/09/19 14:56 Blood - Peripheral Venous Blood Culture - Preliminary NO GROWTH OBTAINED AFTER 48 HOURS, INCUBATION TO CONTINUE FOR 3 DAYS. 09/09/19 14:50 Blood - Peripheral Venous Blood Culture - Preliminary NO GROWTH OBTAINED AFTER 48 HOURS, INCUBATION TO CONTINUE FOR 3 DAYS. 09/11/19 13:40 Urine - Urine - Catheterized Legionella Antigen - Final 09/11/19 13:40 Urine - Urine - Catheterized Streptococcus pneumoniae Antigen (M - Final 09/07/19 07:03 Blood - Peripheral Venous Blood Culture - Preliminary NO GROWTH OBTAINED AFTER 96 HOURS, INCUBATION TO CONTINUE FOR 1 DAYS. 09/07/19 07:16 Blood - Peripheral Venous Blood Culture - Preliminary NO GROWTH OBTAINED AFTER 96 HOURS, INCUBATION TO CONTINUE FOR 1 DAYS. 09/04/19 21:00 Blood - Peripheral Venous Blood Culture - Final NO GROWTH AFTER 5 DAYS INCUBATION 09/04/19 20:10 Blood - Peripheral Venous Blood Culture - Final NO GROWTH AFTER 5 DAYS INCUBATION 09/06/19 09:40 Sputum - Expectorated Gram Stain - Final 09/06/19 09:40 Sputum - Expectorated Sputum Culture - Final Yeast Like Organism 09/04/19 22:30 Urine - Urine - Catheterized Urine Culture - Final Escherichia Coli ASSESSMENT AND PLAN: Patient continues to improve, no further fevers, appetite improved with Megace. Will convert over to p.o. antibiotics in the next several days and prepare to discharge back to her facility in [place]
[2019-09-11] MEDS: DOCUSATE SODIUM 100 MG CAPSULE (FP) PO SCH (21:38)
[2019-09-11] MEDS: QUEtiapine FUMARATE 25 MG TABLET PO SCH (21:38)
[2019-09-11] MEDS: ATORVASTATIN CA 40 MG TABLET (FP) PO SCH (21:40)
[2019-09-12] MEDS: NYSTATIN 500,000 UNITS/5 ML SUSPENSION PO SCH ×4 (00:30→17:20)
[2019-09-12] MEDS: CEFEPIME 2 GM in DEXTROSE 5%-WATER 100 ML IVPB SCH ×2 (01:39→11:16)
[2019-09-12] MEDS: VANCOMYCIN 1 GRAM (PRE-DOCKED) 1,000 MG/250 ML BAG IVPB SCH ×2 (03:36→15:14)
[2019-09-12 07:41] LABS: BASO % 0.4 % (0-2.0); EOS % 3.6 % (0-4.5); HEMATOCRIT 34.8 % (32.4-45.2); HEMOGLOBIN 11.9 GM/dL (10.7-15.3); LYMPH % 11.6 % (8-40); MCH 30.8 pg (25.7-33.7); MCHC 34.1 g/dl (32.0-36.0); MEAN CELL VOLUME 90.5 fl (80-96); MEAN PLT VOLUME 7.3 fl (7.5-11.1); MONO % 10.9 % (3.8-10.2); NEUT % 73.5 % (42.8-82.8); PLATELET COUNT 387 K/MM3 (134-434); RBC 3.85 M/mm3 (3.60-5.2); RDW 14.6 % (11.6-15.6); WHITE BLOOD COUNT 9.1 K/mm3 (4.0-10.0)
[2019-09-12 08:19] LABS: ALBUMIN 2.2 g/dl (3.4-5.0); BILIRUBIN,TOTAL 0.7 mg/dL (0.2-1); BLOOD UREA NITROGEN 6.7 mg/dL (7-18); CALCIUM 8.1 mg/dL (8.5-10.1); CREATININE 0.3 mg/dL (0.55-1.3); TOT PROT 5.4 g/dl (6.4-8.2)
--- NOTE | 2019-09-12 08:28 | PN ---
Progress Note (short form) - Note Progress Note: Neurology CHIEF COMPLAINT: Sent from [facility] after she was found to be tachypnic with a fever of 103 PCP: Dr. Crystal HISTORY OF PRESENT ILLNESS: This is a 63 year old female, resident at [facility] with PMH of MS, anxiety, schizoaffective disorder, dementia, and depression. Daughter was present at bedside to assist with history taking and examination. She was sent to the ER from [facility] after she was found to be tachypnic with a fever (daughter stated she thinks she was told 103, may have been 101.3). Per notes, the patient stated she fell down on day of admission, although the daughter said that she has been saying this for the past several weeks, and there have been no reports from the [place] about any falls. Patient only endorsed spinal pain in lower thoracic and lumbar region, which she has had for "a while ", and stated that she "wants to see a logistics specialist". She denied any fevers , chills, nausea, vomiting, diarrhea, abdominal pain, chest pain, palpitations, dizziness, light headedness, dysuria, polyuria, or hematuria. As per daughter, the patient has had a dry cough for the past 2 weeks. She was diagnosed with MS in November 2017, and is currently on Tecfidera. In May 2019, she began to develop dementia. She is AOx3, and recognizes her daughter, but struggles with short term memory recollection and is unable to answer questions in detail. She was admitted to [facility] in on 07/22/19 for a UTI and a fall, and multiple scans found no evidence of any fractures, and cultures were negative. She also had a brain MRi which showed demyelinating disease with no evidence of infarction, no ehancement. As per the daughter, the patient has seen 3 neurologists over the past few months, and her falls have been attributed to MS. Ct of Head completed and showed no evidence of acute intracranial pathology. Decreased attenuation of supratentorial periventricular white matter attributed to demyelination. Ct of thoracic and lumbar spine also performed and demonstrated no compression fracture, subluxation, focal bone destruction or sclerosis. Also, mild degenerative changes in lower T-spine and moderate degenerative dis disease at T12-L1 level. T11-T12 mild right osteophyte comples. L3-L4 mild disc bulge slightly impinging left L3 nerve root. Per notes, possibly for SNF though patient during my visit indicated she may not want to go. Will defer to PCP and case mgmt. Active Medications Acetaminophen (Tylenol -) 650 mg PO Q6H PRN PRN Reason: FEVER Last Admin: 09/09/19 04:37 Dose: 650 mg Artificial Tears (Artificial Tears) 1 drop OU BID [facility] Last Admin: 09/11/19 21:50 Dose: 1 drop Aspirin (Asa -) 81 mg PO DAILY [facility] Last Admin: 09/11/19 10:26 Dose: 81 mg Atorvastatin Calcium (Lipitor -) 40 mg PO HS [facility] Last Admin: 09/11/19 21:40 Dose: 40 mg Clonazepam (Klonopin -) 1 mg PO QID [facility] Last Admin: 09/11/19 21:41 Dose: 1 mg Docusate Sodium (Colace -) 100 mg PO HS [facility] Last Admin: 09/11/19 21:38 Dose: 100 mg Lactated Ringer's (Lactated Ringers Solution) 1,000 ml in 1,000 mls @ 100 mls/ hr IV ASDIR [facility] Last Admin: 09/11/19 10:33 Dose: Not Given Cefepime HCl 2 gm/ Dextrose 100 mls @ 100 mls/hr IVPB Q8H-IV [facility]; Protocol Last Admin: 09/12/19 01:39 Dose: 100 mls/hr Vancomycin HCl (Vancomycin (Pre-Docked)) 1,000 mg in 250 mls @ 166.667 mls/hr IVPB Q12H [facility]; Protocol Last Admin: 09/12/19 03:36 Dose: 166.667 mls/hr Potassium Chloride (Potassium Chloride 10 Meq Premix Ivpb -) 10 meq in 100 mls @ 100 mls/hr IVPB Q60M [facility] Stop: 09/12/19 11:29 Megestrol Acetate (Megace Oral Suspension -) 400 mg PO DAILY [facility] Last Admin: 09/11/19 10:27 Dose: 400 mg Non-Formulary Medication (Dimethyl Fumarate [Tecfidera]) 240 mg PO BID [facility] Last Admin: 09/11/19 21:42 Dose: 240 mg Nystatin (Nystatin Oral Suspension -) 500,000 units PO Q6HPO [facility] Last Admin: 09/12/19 05:14 Dose: 500,000 units Polyethylene Glycol (Miralax (For Daily Use) -) 17 gm PO DAILY [facility] Last Admin: 09/11/19 10:21 Dose: 17 grams Potassium Chloride (K-Dur -) 40 meq PO ONCE ONE Stop: 09/12/19 08:31 Quetiapine Fumarate (Seroquel -) 12.5 mg PO HS [facility] Last Admin: 09/11/19 21:38 Dose: 12.5 mg PHYSICAL EXAMINATION Vital Signs Period Temp Pulse Resp BP Sys/Clemente Pulse Ox Last 24 Hr 97.6 F-99.5 F 95-106 18-20 139-145/62-92 92-98 GENERAL: AOx3 HEAD: Normal with no signs of trauma. EYES: Pupils equal, round and reactive to light, extraocular movements intact, sclera anicteric, conjunctiva clear. No lid lag. EARS, NOSE, THROAT: Ears normal, nares patent, oropharynx clear without exudates. Moist mucous membranes. NECK: Normal range of motion, supple without lymphadenopathy, JVD, or masses. LUNGS: Decreased sounds equal, clear to auscultation bilaterally. No wheezes, and no crackles. No accessory muscle use. HEART: Regular rate and rhythm, normal S1 and S2 without murmur, rub or gallop. ABDOMEN: Soft, nontender, not distended, normoactive bowel sounds, no guarding, no rebound, no masses. No hepatomegaly or splenomegaly. MUSCULOSKELETAL: spinal and paraspinal tenderness in lower thoracic and lumbar vertebrae UPPER EXTREMITIES: 2+ pulses, warm, well-perfused. No cyanosis. No clubbing. No peripheral edema. LOWER EXTREMITIES: 2+ pulses, warm, well-perfused. No calf tenderness. No peripheral edema. NEUROLOGICAL: Cranial nerves II-XII intact. Normal speech, moves eextremities grossly, not participating in confrontation testing, sensory intact PSYCHIATRIC: Flat affect, answers questions with single word sentences SKIN: Warm, dry, normal turgor, no rashes or lesions noted, normal capillary refill. CBCD WBC 9.1 K/mm3 (4.0-10.0) 09/12/19 07:20 RBC 3.85 M/mm3 (3.60-5.2) 09/12/19 07:20 Hgb 11.9 GM/dL (10.7-15.3) 02/11/20 07:20 Hct 34.8 % (32.4-45.2) 09/12/19 07:20 MCV 90.5 fl (80-96) 09/12/19 07:20 MCHC 34.1 g/dl (32.0-36.0) 09/12/19 07:20 RDW 14.6 % (11.6-15.6) 09/12/19 07:20 Plt Count 387 K/MM3 (134-434) 09/12/19 07:20 MPV 7.3 fl (7.5-11.1) L 09/12/19 07:20 CMP Sodium 136 mmol/L (136-145) 09/12/19 07:20 Potassium 3.0 mmol/L (3.5-5.1) L 09/12/19 07:20 Chloride 102 mmol/L (98-107) 09/12/19 07:20 Carbon Dioxide 25 mmol/L (21-32) 09/12/19 07:20 Anion Gap 9 MMOL/L (8-16) 09/12/19 07:20 BUN 6.7 mg/dL (7-18) L 09/12/19 07:20 Creatinine 0.3 mg/dL (0.55-1.3) L 09/12/19 07:20 Random Glucose 108 mg/dL (74-106) H 09/12/19 07:20 Calcium 8.1 mg/dL (8.5-10.1) L 09/12/19 07:20 Total Bilirubin 0.7 mg/dL (0.2-1) 09/12/19 07:20 AST 14 U/L (15-37) L 09/12/19 07:20 ALT 18 U/L (13-61) 09/12/19 07:20 Alkaline Phosphatase 60 U/L (45-117) 09/12/19 07:20 Total Protein 5.4 g/dl (6.4-8.2) L 09/12/19 07:20 Albumin 2.2 g/dl (3.4-5.0) L 09/12/19 07:20 CARDIAC ENZYMES Troponin I < 0.02 ng/ml (0.00-0.05) 09/04/19 20:10 ASSESSMENT/PLAN: 63 year old female, resident at [facility] with PMH of MS, anxiety, schizoaffective disorder, dementia, and depression. Daughter was present at bedside to assist with history taking and examination. She was sent to the ER from [facility] after she was found to be tachypnic with a fever (daughter stated she thinks she was told 103, may have been 101.3). Per notes, the patient stated she fell down on day of admission, although the daughter said that she has been saying this for the past several weeks, and there have been no reports from the [place] about any falls. Patient only endorsed spinal pain in lower thoracic and lumbar region, which she has had for "a while", and stated that she "wants to see a logistics specialist". She denied any fevers, chills, nausea, vomiting, diarrhea, abdominal pain, chest pain, palpitations, dizziness , light headedness, dysuria, polyuria, or hematuria. As per daughter, the patient has had a dry cough for the past 2 weeks. She was diagnosed with MS in November 2017, and is currently on Tecfidera. In May 2019, she began to develop dementia. She is AOx3, and recognizes her daughter, but struggles with short term memory recollection and is unable to answer questions in detail. She was admitted to [facility] in on 07/22/19 for a UTI and a fall, and multiple scans found no evidence of any fractures, and cultures were negative. She also had a brain MRi which showed demyelinating disease with no evidence of infarction, no ehancement. As per the daughter, the patient has seen 3 neurologists over the past few months, and her falls have been attributed to MS. Ct of Head completed and showed no evidence of acute intracranial pathology. Decreased attenuation of supratentorial periventricular white matter attributed to demyelination. Ct of thoracic and lumbar spine also performed and demonstrated no compression fracture, subluxation, focal bone destruction or sclerosis. Also, mild degenerative changes in lower T-spine and moderate degenerative dis disease at T12-L1 level. T11-T12 mild right osteophyte comples. L3-L4 mild disc bulge slightly impinging left L3 nerve root. TThis AM, more calm and relaxed, not pperseverating at this time but aggitated with nurses aid who is trying to feed her at bedside. Neurologically, does not seem to have any focal deficits or changes, reviewed notes from the weekend and no neurologic events noted. Continue infectious management and does not appear to have MS exacerbation as no new focal deficits. Would benefit from PT, short term rehab if amenable. ABx as per primary team. Per notes, possibly for SNF though patient during my visit indicated she may not want to go. Will defer to PCP and case mgmt.
[2019-09-12] MEDS ORDERED: POTASSIUM CHLORIDE TABS 20 MEQ TABLET.ER (FP) PO ONE (08:30)
[2019-09-12] MEDS ORDERED: PT OWN MED DRAWER 7, Y5N ONE ×2 (10:19→15:42)
[2019-09-12] MEDS: KCL 10 MEQ IVPB 10 MEQ/100 ML INFUS.BAG IVPB SCH ×3 (10:28→13:44)
[2019-09-12] MEDS: ASPIRIN 81 MG CHEWABLE TABLETS PO SCH (10:35)
[2019-09-12] MEDS: clonazePAM 0.5 MG TABLET PO SCH ×4 (10:35→22:53)
[2019-09-12] MEDS: MEGESTROL ACETATE 400 MG/10 ML UNIT DOSE CUP PO SCH (10:36)
[2019-09-12] MEDS: POLYETHYLENE GLYCOL 3350 119 GM BTL PO SCH (10:36)
[2019-09-12] MEDS: PATIENT'S OWN MEDICATION (NON-FORMULARY) (Dimethyl Fumarate [Tecfidera] 240 MG) PO SCH ×2 (10:36→22:53)
[2019-09-12] MEDS: ARTIFICIAL TEARS (POLYVINYL ALCOHOL) OPTH DROPS OU SCH ×2 (11:19→22:49)
[2019-09-12 13:38] LABS: MAGNESIUM 1.9 mg/dL (1.8-2.4); PHOSPHOROUS 2.3 mg/dL (2.5-4.9)
--- NOTE | 2019-09-12 15:13 | PN ---
Progress Note, Physician History of Present Illness: pulmonary awake.alert,no distress,-sob - Current Medication List Current Medications: Active Medications Acetaminophen (Tylenol -) 650 mg PO Q6H PRN PRN Reason: FEVER Last Admin: 09/09/19 04:37 Dose: 650 mg Artificial Tears (Artificial Tears) 1 drop OU BID [facility] Last Admin: 09/12/19 11:19 Dose: 1 drop Aspirin (Asa -) 81 mg PO DAILY [facility] Last Admin: 09/12/19 10:35 Dose: 81 mg Atorvastatin Calcium (Lipitor -) 40 mg PO HS [facility] Last Admin: 09/11/19 21:40 Dose: 40 mg Clonazepam (Klonopin -) 1 mg PO QID [facility] Last Admin: 09/12/19 14:32 Dose: 1 mg Docusate Sodium (Colace -) 100 mg PO [facility] Last Admin: 09/11/19 21:38 Dose: 100 mg Lactated Ringer's (Lactated Ringers Solution) 1,000 ml in 1,000 mls @ 100 mls/ hr IV ASDIR [facility] Last Admin: 09/11/19 10:33 Dose: Not Given Cefepime HCl 2 gm/ Dextrose 100 mls @ 100 mls/hr IVPB Q8H-IV [facility]; Protocol Last Admin: 09/12/19 11:16 Dose: 100 mls/hr Vancomycin HCl (Vancomycin (Pre-Docked)) 1,000 mg in 250 mls @ 166.667 mls/hr IVPB Q12H [facility]; Protocol Last Admin: 09/12/19 03:36 Dose: 166.667 mls/hr Megestrol Acetate (Megace Oral Suspension -) 400 mg PO DAILY [facility] Last Admin: 09/12/19 10:36 Dose: 400 mg Non-Formulary Medication (Dimethyl Fumarate [Tecfidera]) 240 mg PO BID [facility] Last Admin: 09/12/19 10:36 Dose: 240 mg Nystatin (Nystatin Oral Suspension -) 500,000 units PO Q6HPO [facility] Last Admin: 09/12/19 12:43 Dose: Not Given Polyethylene Glycol (Miralax (For Daily Use) -) 17 gm PO DAILY [facility] Last Admin: 09/12/19 10:36 Dose: 17 grams Quetiapine Fumarate (Seroquel -) 12.5 mg PO HS [facility] Last Admin: 09/11/19 21:38 Dose: 12.5 mg - Objective Vital Signs: Vital Signs Temperature 97.8 F 09/12/19 15:00 Pulse Rate 104 H 09/12/19 15:00 Respiratory Rate 09/12/19 15:00 Blood Pressure 140/78 09/12/19 15:00 O2 Sat by Pulse Oximetry (%) 96 09/12/19 09:00 Constitutional: Yes: Calm, Thin Eyes: Yes: WNL HENT: Yes: WNL Neck: Yes: WNL Cardiovascular: Yes: Regular Rate and Rhythm, S1, S2 Respiratory: Yes: Diminished Gastrointestinal: Yes: Normal Bowel Sounds, Soft Extremities: Yes: WNL Edema: No Labs: CBC, BMP 09/12/19 07:20 09/12/19 07:20 INR, PTT INR 0.99 (0.83-1.09) 09/04/19 20:10 Problem List - Problems (1) Pneumonia Code(s): J18.9 - PNEUMONIA, UNSPECIFIED ORGANISM (2) Multiple sclerosis Code(s): G35 - MULTIPLE SCLEROSIS Assessment/Plan Problem List - Problems (1) Pneumonia Code(s): J18.9 - PNEUMONIA, UNSPECIFIED ORGANISM Assessment/Plan Pneumonia ?aspiration incentive kellen Sepsis/UTI Multiple Sclerosis Schizoaffective Disorder Anxiety/Depression Dementia - IV antibiotics - aspiration precautions - nystatin - O2 as needed to keep SpO2>90% - DVT prophylaxis - chest x-ray harjinder CHUNG
[2019-09-12] MEDS ORDERED: POTASSIUM PHOSPHATE 30 MM in SODIUM CHLORIDE 500 ML IVPB ONE (15:17)
[2019-09-12 15:59] VITALS: BMI 20.7
--- NOTE | 2019-09-12 16:04 | PN ---
Progress Note, Physician History of Present Illness: AWAKE, ALERT IN BED TEMPS DOWN DENIES CHEST PAIN/ DYSPNEA/ COUGH DENIES DYSURIA BC NO GROWTH URINE C/S E COLI CT SHOWS BASILAR INFILTRATES - Current Medication List Current Medications: Active Medications Acetaminophen (Tylenol -) 650 mg PO Q6H PRN PRN Reason: FEVER Last Admin: 09/09/19 04:37 Dose: 650 mg Artificial Tears (Artificial Tears) 1 drop OU BID [facility] Last Admin: 09/12/19 11:19 Dose: 1 drop Aspirin (Asa -) 81 mg PO DAILY [facility] Last Admin: 09/12/19 10:35 Dose: 81 mg Atorvastatin Calcium (Lipitor -) 40 mg PO HS [facility] Last Admin: 09/11/19 21:40 Dose: 40 mg Clonazepam (Klonopin -) 1 mg PO QID [facility] Last Admin: 09/12/19 14:32 Dose: 1 mg Docusate Sodium (Colace -) 100 mg PO HS [facility] Last Admin: 09/11/19 21:38 Dose: 100 mg Lactated Ringer's (Lactated Ringers Solution) 1,000 ml in 1,000 mls @ 100 mls/ hr IV ASDIR [facility] Last Admin: 09/11/19 10:33 Dose: Not Given Cefepime HCl 2 gm/ Dextrose 100 mls @ 100 mls/hr IVPB Q8H-IV [facility]; Protocol Last Admin: 09/12/19 11:16 Dose: 100 mls/hr Vancomycin HCl (Vancomycin (Pre-Docked)) 1,000 mg in 250 mls @ 166.667 mls/hr IVPB Q12H [facility]; Protocol Last Admin: 09/12/19 15:14 Dose: 166.667 mls/hr Potassium Phosphate 30 mm/ (Sodium Chloride) 510 mls @ 62.5 mls/hr IVPB ONCE ONE Stop: 09/12/19 23:26 Megestrol Acetate (Megace Oral Suspension -) 400 mg PO DAILY [facility] Last Admin: 09/12/19 10:36 Dose: 400 mg Non-Formulary Medication (Dimethyl Fumarate [Tecfidera]) 240 mg PO BID [facility] Last Admin: 09/12/19 10:36 Dose: 240 mg Nystatin (Nystatin Oral Suspension -) 500,000 units PO Q6HPO [facility] Last Admin: 09/12/19 12:43 Dose: Not Given Polyethylene Glycol (Miralax (For Daily Use) -) 17 gm PO DAILY [facility] Last Admin: 09/12/19 10:36 Dose: 17 grams Quetiapine Fumarate (Seroquel -) 12.5 mg PO HS [facility] Last Admin: 09/11/19 21:38 Dose: 12.5 mg - Objective Vital Signs: Vital Signs Temperature 97.8 F 09/12/19 15:00 Pulse Rate 104 H 09/12/19 15:00 Respiratory Rate 09/12/19 15:00 Blood Pressure 140/78 09/12/19 15:00 O2 Sat by Pulse Oximetry (%) 96 09/12/19 09:00 Constitutional: Yes: No Distress Cardiovascular: Yes: Regular Rate and Rhythm, S1, S2 Respiratory: Yes: Diminished Gastrointestinal: Yes: Normal Bowel Sounds, Soft. No: Tenderness Edema: No Labs: CBC, BMP 09/12/19 07:20 09/12/19 07:20 INR, PTT INR 0.99 (0.83-1.09) 09/04/19 20:10 Assessment/Plan UTI R/O SEPSIS SECONDARY TO UTI PNEUMONIA ? 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
[2019-09-12] MEDS: LACTATED RINGERS SOLUTION 1,000 ML/1,000 ML INFUS.BAG IV SCH (16:54)
--- NOTE | 2019-09-12 18:56 | PN ---
Physical Exam: SUBJECTIVE: Patient seen and examined at bedside this AM. No fevers or acute complaints overnight. OBJECTIVE: Vital Signs Period Temp Pulse Resp BP Sys/Clemente Pulse Ox Last 24 Hr 97.6 F-98.3 F 100-108 19-20 139-145/62-86 96-98 GENERAL: The patient is awake, alert, stable no changes. LUNGS: Breath sounds equal, clear to auscultation bilaterally, no wheezes, no crackles, no accessory muscle use. HEART: Regular rate and rhythm, S1, S2 without murmur, rub or gallop. ABDOMEN: Soft, nontender, nondistended EXTREMITIES: 2+ pulses, warm, well-perfused, no edema. Neuro- able to walk with PT with walker. Laboratory Results - last 24 hr 09/06/19 09/12/19 09/12/19 06:00 07:20 07:20 WBC 9.1 RBC 3.85 Hgb 11.9 Hct 34.8 MCV 90.5 MCH 30.8 MCHC 34.1 RDW 14.6 Plt Count 387 MPV 7.3 L Absolute Neuts (auto) 6.7 Neutrophils % 73.5 Lymphocytes % 11.6 Monocytes % 10.9 H Eosinophils % 3.6 Basophils % 0.4 Nucleated RBC % 0 Sodium 136 Potassium 3.0 L Chloride 102 Carbon Dioxide 25 Anion Gap 9 BUN 6.7 L Creatinine 0.3 L Est GFR (CKD-EPI)AfAm 141.23 Est GFR (CKD-EPI)NonAf 121.85 Random Glucose 108 H Calcium 8.1 L Phosphorus 2.3 L Magnesium 1.9 Total Bilirubin 0.7 AST 14 L ALT 18 Alkaline Phosphatase 60 Total Protein 5.4 L Albumin 2.2 L Adenovirus (PCR) Negative Human Metapneumovir PCR Negative Influenza A (H1) PCR Positive H Influenza B (RT-PCR) Negative Parainfluenza 1 (PCR) Negative Parainfluenza 2 (PCR) Negative Parainfluenza 3 (PCR) Negative RSV Type A (PCR) Negative RSV Type B (PCR) Negative Rhinovirus (PCR) Negative Active Medications Generic Name Dose Route Start Last Admin Trade Name Freq PRN Reason Stop Dose Admin Acetaminophen 650 mg 09/06/19 03:15 09/09/19 04:37 Tylenol - PO 650 mg Q6H PRN Administration FEVER Artificial Tears 1 drop 09/05/19 10:00 09/12/19 11:19 Artificial Tears OU 1 drop BID AISSATOU Administration Aspirin 81 mg 09/05/19 10:00 09/12/19 10:35 Asa - PO 81 mg DAILY AISSATOU Administration Atorvastatin Calcium 40 mg 09/05/19 22:00 09/11/19 21:40 Lipitor - PO 40 mg HS AISSATOU Administration Cefuroxime Axetil 500 mg 09/12/19 22:00 Ceftin - PO BID AISSATOU Clonazepam 1 mg 09/05/19 10:00 09/12/19 17:21 Klonopin - PO 1 mg QID AISSATOU Administration Docusate Sodium 100 mg 09/05/19 22:00 09/11/19 21:38 Colace - PO 100 mg HS AISSATOU Administration Lactated Ringer's 1,000 ml in 1,000 mls @ 100 mls/hr 09/07/19 08:30 09/12/19 16:54 Lactated Ringers Solution IV 100 mls/hr ASDIR AISSATOU Administration Potassium Phosphate 30 mm/ 510 mls @ 62.5 mls/hr 09/12/19 15:17 09/12/19 16: 51 Sodium Chloride IVPB 09/12/19 23:26 62.5 mls/hr ONCE ONE Administration Megestrol Acetate 400 mg 09/10/19 18:45 09/12/19 10:36 Megace Oral Suspension - PO 400 mg DAILY AISSATOU Administration Non-Formulary Medication 240 mg 09/06/19 22:00 09/12/19 10:36 Dimethyl Fumarate [Tecfidera] PO 240 mg BID AISSATOU Administration Nystatin 500,000 units 09/07/19 18:00 09/12/19 17:20 Nystatin Oral Suspension - PO 500,000 units Q6HPO AISSATOU Administration Polyethylene Glycol 17 gm 09/06/19 10:00 09/12/19 10:36 Miralax (For Daily Use) - PO 17 grams DAILY AISSATOU Administration Quetiapine Fumarate 12.5 mg 09/08/19 22:00 09/11/19 21:38 Seroquel - PO 12.5 mg HS AISSATOU Administration ASSESSMENT/PLAN: - CXR: increased interstitial markings but no infiltrate, - CT spine lumbar + thoracic shows no abscess, 2.5 cm rt lobe mass, L3, L4 stenosis, dilated GD, rt renal cyst - CT head- No fx or bleed on preliminary report, shows air bubble on scalp - CTchest: B/l lower lobe infilitrates Lt>Rt concern for acute PNA, patchy infiltrates in b/l lobes, atelectasis at rt lung base. 63F with PMH of MS, anxiety, schizoaffective disorder, dementia, and depression sent from [facility] after she was found to be tachypnic with a fever of 103. Admitted for management of Sepsis. #Sepsis 2/2 UTI - febrile overnight to 102, recultured and treated with 1gt vanc, cefepime 2gQ8H , UA Cx growing E coli. - influenza A positive - WBC 10.3 today, Tecfidera may cause leukopenia - UA 1+ protein, 4+ ketones, nitrite + - switching to oral ceftin 500 BID d/c'ing IV abx per ID. - Urinary Cx positive for gram negative lactose fermenting bacilli which is covered by ceftriaxone day 2. Sputum cx growing gram negative nonlactose fermenting bacilli. - Qtc no longer elevated on recent ekg - Blood Cx negative urine cx growing e coli cheng sensitive #Aspiration PNA - CT chest showing b/l PNA - continue abx as above - Afebrile >24 hrs likely will be d/c'd tm in AM - quantifuron negative - ordered barium swallow given possible aspiration PNA #Hx of MS - Continue Tecfidera - Neuro seen pt and does not think this is due to Acute MS exacerbation - speech and swallow eval- continue regular solids with thin liquids as tolerated, start on appetite stimulant(megestrol) and obtain MBS later in week given pt confused mental status unable to participate. #Hx of urinary retention - Will monitor for urinary output and scan bladder if output is low #Hx of schizoaffective disorder - taper clonazepam very slowly per psych, Seroquel 12.5BID, d/c'd remeron (may be causing prolonged Qtc) #Hx of Hyperlipidemia - Continue Lipitor DVT: Lovenox 40 daily Visit type - Emergency Visit Emergency Visit: Yes ED Registration Date: 09/04/19 Care time: The patient presented to the Emergency Department on the above date and was hospitalized for further evaluation of their emergent condition. - New Patient This patient is new to me today: No - Critical Care Critical Care patient: No - Discharge Referral Referred to [facility] Med P.C.: No ATTENDING PHYSICIAN STATEMENT I saw and evaluated the patient. I reviewed the resident's note and discussed the case with the resident. I agree with the resident's findings and plan as documented. SUBJECTIVE: OBJECTIVE: ASSESSMENT AND PLAN:
--- NOTE | 2019-09-12 18:59 | PN ---
Teaching Attending Note Name of Resident: Panda Dawson ATTENDING PHYSICIAN STATEMENT I saw and evaluated the patient. I reviewed the resident's note and discussed the case with the resident. I agree with the resident's findings and plan as documented. SUBJECTIVE: Feels well, no complaints, wants to go home. OBJECTIVE: Afebrile, Hemodynamcially Stable. Anxious + Last Vital Signs Temp Pulse Resp BP Pulse Ox 97.8 F 104 H 20 140/78 96 09/12/19 15:00 09/12/19 15:00 09/12/19 15:09/12/19 15:09/12/19 09:00 HEENT - Atraumatic, Normocephalic. Heart - S1, S2, RRR Lungs - decreased air entry at bases Abdomen - Soft, non-tender. Bowel Sounds normal. Extremities - no edema, no calf tenderness. Laboratory Results - last 24 hr 09/06/19 09/12/19 09/12/19 06:00 07:20 07:20 WBC 9.1 RBC 3.85 Hgb 11.9 Hct 34.8 MCV 90.5 MCH 30.8 MCHC 34.1 RDW 14.6 Plt Count 387 MPV 7.3 L Absolute Neuts (auto) 6.7 Neutrophils % 73.5 Lymphocytes % 11.6 Monocytes % 10.9 H Eosinophils % 3.6 Basophils % 0.4 Nucleated RBC % 0 Sodium 136 Potassium 3.0 L Chloride 102 Carbon Dioxide 25 Anion Gap 9 BUN 6.7 L Creatinine 0.3 L Est GFR (CKD-EPI)AfAm 141.23 Est GFR (CKD-EPI)NonAf 121.85 Random Glucose 108 H Calcium 8.1 L Phosphorus 2.3 L Magnesium 1.9 Total Bilirubin 0.7 AST 14 L ALT 18 Alkaline Phosphatase 60 Total Protein 5.4 L Albumin 2.2 L Adenovirus (PCR) Negative Human Metapneumovir PCR Negative Influenza A (H1) PCR Positive H Influenza B (RT-PCR) Negative Parainfluenza 1 (PCR) Negative Parainfluenza 2 (PCR) Negative Parainfluenza 3 (PCR) Negative RSV Type A (PCR) Negative RSV Type B (PCR) Negative Rhinovirus (PCR) Negative Current Medications Generic Name Dose Route Start Last Admin Trade Name Freq PRN Reason Stop Dose Admin Acetaminophen 650 mg 09/06/19 03:15 09/09/19 04:37 Tylenol - PO 650 mg Q6H PRN Administration FEVER Artificial Tears 1 drop 09/05/19 10:00 09/12/19 11:19 Artificial Tears OU 1 drop BID AISSATOU Administration Aspirin 81 mg 09/05/19 10:00 09/12/19 10:35 Asa - PO 81 mg DAILY AISSATOU Administration Atorvastatin Calcium 40 mg 09/05/19 22:00 09/11/19 21:40 Lipitor - PO 40 mg HS AISSATOU Administration Cefuroxime Axetil 500 mg 09/12/19 22:00 Ceftin - PO BID AISSATOU Clonazepam 1 mg 09/05/19 10:00 09/12/19 17:21 Klonopin - PO 1 mg QID AISSATOU Administration Docusate Sodium 100 mg 09/05/19 22:00 09/11/19 21:38 Colace - PO 100 mg HS AISSATOU Administration Lactated Ringer's 1,000 ml in 1,000 mls @ 100 mls/hr 09/07/19 08:30 09/12/19 16:54 Lactated Ringers Solution IV 100 mls/hr ASDIR AISSATOU Administration Potassium Phosphate 30 mm/ 510 mls @ 62.5 mls/hr 09/12/19 15:17 09/12/19 16: 51 Sodium Chloride IVPB 09/12/19 23:26 62.5 mls/hr ONCE ONE Administration Megestrol Acetate 400 mg 09/10/19 18:45 09/12/19 10:36 Megace Oral Suspension - PO 400 mg DAILY AISSATOU Administration Non-Formulary Medication 240 mg 09/06/19 22:00 09/12/19 10:36 Dimethyl Fumarate [Tecfidera] PO 240 mg BID AISSATOU Administration Nystatin 500,000 units 09/07/19 18:00 09/12/19 17:20 Nystatin Oral Suspension - PO 500,000 units Q6HPO AISSATOU Administration Polyethylene Glycol 17 gm 09/06/19 10:00 09/12/19 10:36 Miralax (For Daily Use) - PO 17 grams DAILY AISSATOU Administration Quetiapine Fumarate 12.5 mg 09/08/19 22:00 09/11/19 21:38 Seroquel - PO 12.5 mg HS AISSATOU Administration Home Medications Medication Instructions Recorded Acetaminophen 325 mg PO PRN 07/29/19 Aspirin 81 mg PO DAILY 07/29/19 Atorvastatin Ca [Lipitor] 40 mg PO HS 07/29/19 Clonazepam 1 mg PO QID 07/29/19 Dextran 70/Hypromellose 1 each OU BID 07/29/19 [Artificial Tears] Dimethyl Fumarate [Tecfidera] 240 mg PO BID 07/29/19 Docusate Sodium [Docusate 100 mg] 200 mg PO HS 07/29/19 Mirtazapine 30 mg PO HS 07/29/19 Quetiapine Fumarate [Seroquel -] 25 mg PO HS 07/29/19 ASSESSMENT AND PLAN: 63 year old female resident of [facility], with history of MS, Dementia, Anxiety/Depression, Schizoaffective Disorder, HLD, presented with fever, tachypnea, found to be Septic. 1. Acute Metabolic Encephalopathy sec to Sepsis secondary to A) UTI and B) Bilateral Pneumonia/Influenza A PCR positive Urine Cx - Ecoli. CT Chest - bilateral infiltrates. CT head - no acute findings. Treated with Cefepime/Vanc - for transition to oral Ceftin as per ID. Afebrile, Hemodynamically Stable. Confusion resolved. Sepsis resolved. ? aspiration. Seen by Speech Therapy - recommended for regular diet with thin liquids. 2. MS - on Tecfidera. No evidence of acute exacerbation/flare. 3. Schizoaffective Disorder - continue Clonazepam (will slow taper), Seroquel. Remeron discontinued due to prolonged QTc. [facility] follow up on discharge. 4. HLD - continue Statin. DVT Px - Lovenox SQ
[2019-09-12] MEDS: ENOXAPARIN NA (PORCINE) 40 MG/0.4 ML DISP.SYRIN SQ SCH (22:49)
[2019-09-12] MEDS: CEFUROXIME AXETIL 500 MG TABLET PO SCH (22:51)
[2019-09-12] MEDS: DOCUSATE SODIUM 100 MG CAPSULE (FP) PO SCH (22:52)
[2019-09-12] MEDS: QUEtiapine FUMARATE 25 MG TABLET PO SCH (22:53)
[2019-09-12] MEDS: ATORVASTATIN CA 40 MG TABLET (FP) PO SCH (22:53)
[2019-09-13] MEDS: NYSTATIN 500,000 UNITS/5 ML SUSPENSION PO SCH ×2 (02:41→05:37)
--- NOTE | 2019-09-13 08:25 | PN ---
Progress Note (short form) - Note Progress Note: Neurology CHIEF COMPLAINT: Sent from [facility] after she was found to be tachypnic with a fever of 103 PCP: Dr. Crystal HISTORY OF PRESENT ILLNESS: This is a 63 year old female, resident at [facility]), with PMH of MS, anxiety, schizoaffective disorder, dementia, and depression. Daughter was present at bedside to assist with history taking and examination. She was sent to the ER from [facility] after she was found to be tachypnic with a fever (daughter stated she thinks she was told 103, may have been 101.3). Per notes, the patient stated she fell down on day of admission, although the daughter said that she has been saying this for the past several weeks, and there have been no reports from the [place] about any falls. Patient only endorsed spinal pain in lower thoracic and lumbar region, which she has had for "a while ", and stated that she "wants to see a veterinary milk specialist". She denied any fevers , chills, nausea, vomiting, diarrhea, abdominal pain, chest pain, palpitations, dizziness, light headedness, dysuria, polyuria, or hematuria. As per daughter, the patient has had a dry cough for the past 2 weeks. She was diagnosed with MS in November 2017, and is currently on Tecfidera. In May 2019, she began to develop dementia. She is AOx3, and recognizes her daughter, but struggles with short term memory recollection and is unable to answer questions in detail. She was admitted to [facility] in on 07/22/19 for a UTI and a fall, and multiple scans found no evidence of any fractures, and cultures were negative. She also had a brain MRi which showed demyelinating disease with no evidence of infarction, no ehancement. As per the daughter, the patient has seen 3 neurologists over the past few months, and her falls have been attributed to MS. Ct of Head completed and showed no evidence of acute intracranial pathology. Decreased attenuation of supratentorial periventricular white matter attributed to demyelination. Ct of thoracic and lumbar spine also performed and demonstrated no compression fracture, subluxation, focal bone destruction or sclerosis. Also, mild degenerative changes in lower T-spine and moderate degenerative dis disease at T12-L1 level. T11-T12 mild right osteophyte comples. L3-L4 mild disc bulge slightly impinging left L3 nerve root. Per notes, possibly for SNF today, coorinated with family. Patient asking to be fed this morning, no neurologic events overnight no objection to discharge Active Medications Acetaminophen (Tylenol -) 650 mg PO Q6H PRN PRN Reason: FEVER Last Admin: 09/09/19 04:37 Dose: 650 mg Artificial Tears (Artificial Tears) 1 drop OU BID [facility] Last Admin: 09/12/19 22:49 Dose: 1 drop Aspirin (Asa -) 81 mg PO DAILY [facility] Last Admin: 09/12/19 10:35 Dose: 81 mg Atorvastatin Calcium (Lipitor -) 40 mg PO HS [facility] Last Admin: 09/12/19 22:53 Dose: Not Given Cefuroxime Axetil (Ceftin -) 500 mg PO BID [facility] Last Admin: 09/12/19 22:51 Dose: Not Given Clonazepam (Klonopin -) 1 mg PO QID [facility] Last Admin: 09/12/19 22:53 Dose: Not Given Docusate Sodium (Colace -) 100 mg PO [facility] Last Admin: 09/12/19 22:52 Dose: Not Given Enoxaparin Sodium (Lovenox -) 40 mg SQ DAILY [facility] Last Admin: 09/12/19 22:49 Dose: 40 mg Lactated Ringer's (Lactated Ringers Solution) 1,000 ml in 1,000 mls @ 100 mls/ hr IV ASDIR [facility] Last Admin: 09/12/19 16:54 Dose: 100 mls/hr Megestrol Acetate (Megace Oral Suspension -) 400 mg PO DAILY [facility] Last Admin: 09/12/19 10:36 Dose: 400 mg Non-Formulary Medication (Dimethyl Fumarate [Tecfidera]) 240 mg PO BID [facility] Last Admin: 09/12/19 22:53 Dose: Not Given Nystatin (Nystatin Oral Suspension -) 500,000 units PO Q6HPO [facility] Last Admin: 09/13/19 05:37 Dose: Not Given Polyethylene Glycol (Miralax (For Daily Use) -) 17 gm PO DAILY [facility] Last Admin: 09/12/19 10:36 Dose: 17 grams Quetiapine Fumarate (Seroquel -) 12.5 mg PO HS [facility] Last Admin: 09/12/19 22:53 Dose: Not Given PHYSICAL EXAMINATION Vital Signs Period Temp Pulse Resp BP Sys/Clemente Pulse Ox Last 24 Hr 97.8 F-98.8 F 104-110 20-20 140-154/52-83 96 GENERAL: AOx3 HEAD: Normal with no signs of trauma. EYES: Pupils equal, round and reactive to light, extraocular movements intact, sclera anicteric, conjunctiva clear. No lid lag. EARS, NOSE, THROAT: Ears normal, nares patent, oropharynx clear without exudates. Moist mucous membranes. NECK: Normal range of motion, supple without lymphadenopathy, JVD, or masses. LUNGS: Decreased sounds equal, clear to auscultation bilaterally. No wheezes, and no crackles. No accessory muscle use. HEART: Regular rate and rhythm, normal S1 and S2 without murmur, rub or gallop. ABDOMEN: Soft, nontender, not distended, normoactive bowel sounds, no guarding, no rebound, no masses. No hepatomegaly or splenomegaly. MUSCULOSKELETAL: spinal and paraspinal tenderness in lower thoracic and lumbar vertebrae UPPER EXTREMITIES: 2+ pulses, warm, well-perfused. No cyanosis. No clubbing. No peripheral edema. LOWER EXTREMITIES: 2+ pulses, warm, well-perfused. No calf tenderness. No peripheral edema. NEUROLOGICAL: Cranial nerves II-XII intact. Normal speech, moves eextremities grossly, not participating in confrontation testing, sensory intact PSYCHIATRIC: Flat affect, answers questions with single word sentences SKIN: Warm, dry, normal turgor, no rashes or lesions noted, normal capillary refill. CBCD WBC 9.1 K/mm3 (4.0-10.0) 09/12/19 07:20 RBC 3.85 M/mm3 (3.60-5.2) 09/12/19 07:20 Hgb 11.9 GM/dL (10.7-15.3) 09/12/19 07:20 Hct 34.8 % (32.4-45.2) 09/12/19 07:20 MCV 90.5 fl (80-96) 09/12/19 07:20 MCHC 34.1 g/dl (32.0-36.0) 09/12/19 07:20 RDW 14.6 % (11.6-15.6) 09/12/19 07:20 Plt Count 387 K/MM3 (134-434) 09/12/19 07:20 MPV 7.3 fl (7.5-11.1) L 09/12/19 07:20 CMP Sodium 136 mmol/L (136-145) 09/12/19 07:20 Potassium 3.0 mmol/L (3.5-5.1) L 09/12/19 07:20 Chloride 102 mmol/L (98-107) 09/12/19 07:20 Carbon Dioxide 25 mmol/L (21-32) 09/12/19 07:20 Anion Gap 9 MMOL/L (8-16) 09/12/19 07:20 BUN 6.7 mg/dL (7-18) L 09/12/19 07:20 Creatinine 0.3 mg/dL (0.55-1.3) L 09/12/19 07:20 Random Glucose 108 mg/dL (74-106) H 09/12/19 07:20 Calcium 8.1 mg/dL (8.5-10.1) L 09/12/19 07:20 Total Bilirubin 0.7 mg/dL (0.2-1) 09/12/19 07:20 AST 14 U/L (15-37) L 09/12/19 07:20 ALT 18 U/L (13-61) 09/12/19 07:20 Alkaline Phosphatase 60 U/L (45-117) 09/12/19 07:20 Total Protein 5.4 g/dl (6.4-8.2) L 09/12/19 07:20 Albumin 2.2 g/dl (3.4-5.0) L 09/12/19 07:20 CARDIAC ENZYMES Troponin I < 0.02 ng/ml (0.00-0.05) 09/04/19 20:10 ASSESSMENT/PLAN: 63 year old female, resident at [facility] ([facility]), with PMH of MS, anxiety, schizoaffective disorder, dementia, and depression. Daughter was present at bedside to assist with history taking and examination. She was sent to the ER from [facility] after she was found to be tachypnic with a fever (daughter stated she thinks she was told 103, may have been 101.3). Per notes, the patient stated she fell down on day of admission, although the daughter said that she has been saying this for the past several weeks, and there have been no reports from the [place] about any falls. Patient only endorsed spinal pain in lower thoracic and lumbar region, which she has had for "a while", and stated that she "wants to see a veterinary milk specialist". She denied any fevers, chills, nausea, vomiting, diarrhea, abdominal pain, chest pain, palpitations, dizziness , light headedness, dysuria, polyuria, or hematuria. As per daughter, the patient has had a dry cough for the past 2 weeks. She was diagnosed with MS in November 2017, and is currently on Tecfidera. In May 2019, she began to develop dementia. She is AOx3, and recognizes her daughter, but struggles with short term memory recollection and is unable to answer questions in detail. She was admitted to [facility] in on 07/22/19 for a UTI and a fall, and multiple scans found no evidence of any fractures, and cultures were negative. She also had a brain MRi which showed demyelinating disease with no evidence of infarction, no ehancement. As per the daughter, the patient has seen 3 neurologists over the past few months, and her falls have been attributed to MS. Ct of Head completed and showed no evidence of acute intracranial pathology. Decreased attenuation of supratentorial periventricular white matter attributed to demyelination. Ct of thoracic and lumbar spine also performed and demonstrated no compression fracture, subluxation, focal bone destruction or sclerosis. Also, mild degenerative changes in lower T-spine and moderate degenerative dis disease at T12-L1 level. T11-T12 mild right osteophyte comples. L3-L4 mild disc bulge slightly impinging left L3 nerve root. TThis AM, more calm and relaxed, not pperseverating at this time but aggitated with nurses aid who is trying to feed her at bedside. Neurologically, does not seem to have any focal deficits or changes, reviewed notes from the weekend and no neurologic events noted. Continue infectious management and does not appear to have MS exacerbation as no new focal deficits. Would benefit from PT, short term rehab if amenable. Per notes, possibly for SNF today, coorinated with family. Patient asking to be fed this morning, no neurologic events overnight no objection to discharge
[2019-09-13] MEDS: ENOXAPARIN NA (PORCINE) 40 MG/0.4 ML DISP.SYRIN SQ SCH (10:17)
[2019-09-13] MEDS: CEFUROXIME AXETIL 500 MG TABLET PO SCH (10:17)
[2019-09-13] MEDS: ASPIRIN 81 MG CHEWABLE TABLETS PO SCH (10:17)
[2019-09-13] MEDS: clonazePAM 0.5 MG TABLET PO SCH (10:17)
[2019-09-13] MEDS: LACTATED RINGERS SOLUTION 1,000 ML/1,000 ML INFUS.BAG IV SCH (10:17)
[2019-09-13] MEDS: ARTIFICIAL TEARS (POLYVINYL ALCOHOL) OPTH DROPS OU SCH (10:18)
[2019-09-13] MEDS: MEGESTROL ACETATE 400 MG/10 ML UNIT DOSE CUP PO SCH (10:18)
[2019-09-13] MEDS: PATIENT'S OWN MEDICATION (NON-FORMULARY) (Dimethyl Fumarate [Tecfidera] 240 MG) PO SCH (10:18)
[2019-09-13] MEDS: POLYETHYLENE GLYCOL 3350 119 GM BTL PO SCH (10:18)
[2019-09-13 11:09] VITALS: BP 140/80; PULSE 94; TEMP 98.6
--- NOTE | 2019-09-13 16:01 | PN ---
Teaching Attending Note Name of Resident: Panda Dawson ATTENDING PHYSICIAN STATEMENT I saw and evaluated the patient. I reviewed the resident's note and discussed the case with the resident. I agree with the resident's findings and plan as documented. SUBJECTIVE: Feels well, no complaints, wants to go home. OBJECTIVE: Afebrile, Hemodynamcially Stable. Anxious + Last Vital Signs Temp Pulse Resp BP Pulse Ox 97.8 F 104 H 20 140/78 96 09/12/19 15:00 09/12/19 15:00 09/12/19 15:00 09/12/19 15:00 09/12/19 09:00 HEENT - Atraumatic, Normocephalic. Heart - S1, S2, RRR Lungs - decreased air entry at bases Abdomen - Soft, non-tender. Bowel Sounds normal. Extremities - no edema, no calf tenderness. Laboratory Tests 09/04/19 09/04/19 09/04/19 19:57 20:05 20:10 WBC RBC Hgb Hct MCV MCH MCHC RDW Plt Count MPV Absolute Neuts (auto) Neutrophils % Lymphocytes % Monocytes % Eosinophils % Basophils % Nucleated RBC % ESR PT with INR 11.70 INR 0.99 PTT (Actin FS) 32.3 VBG pH 7.42 H POC VBG pCO2 48.4 POC VBG pO2 < 49 H VBG HCO3 31.0 H VBG O2 Sat (Alber) 44.1 L VBG Base Excess 5.9 H Sodium Potassium Chloride Carbon Dioxide Anion Gap BUN Creatinine Est GFR (CKD-EPI)AfAm Est GFR (CKD-EPI)NonAf Random Glucose Lactic Acid 1.2 Calcium Phosphorus Magnesium Total Bilirubin AST ALT Alkaline Phosphatase Troponin I C-Reactive Protein Total Protein Albumin Prealbumin Urine Color Urine Appearance Urine pH Ur Specific Coleman Urine Protein Urine Glucose (UA) Urine Ketones Urine Blood Urine Nitrite Urine Bilirubin Urine Urobilinogen Ur Leukocyte Esterase Urine RBC (Auto) Urine Casts (Auto) U Epithel Cells (Auto) Urine Bacteria (Auto) Vancomycin Pre-Dose Rheumatoid Factor CARLA Screen Adenovirus (PCR) Hep C Ab Diagnostic HIV 1&2 Ag/Ab, 4th Gen Human Metapneumovir PCR Influenza A (Rapid) Influenza A (H1) PCR Influenza B (Rapid) Influenza B (RT-PCR) Parainfluenza 1 (PCR) Parainfluenza 2 (PCR) Parainfluenza 3 (PCR) RSV Type A (PCR) RSV Type B (PCR) Rhinovirus (PCR) TB Test (QFT) Nil TB Test (QFT) Mitogen TB Test (QFT) Antigen TB Test (QFT) TB Positive Criteria 09/04/19 09/04/19 09/04/19 20:10 20:10 22:30 WBC 7.9 RBC 4.26 Hgb 13.2 Hct 39.6 MCV 92.9 MCH 30.9 MCHC 33.3 RDW 14.6 Plt Count 340 MPV 7.5 Absolute Neuts (auto) 6.9 Neutrophils % 86.7 H D Lymphocytes % 4.8 L D Monocytes % 8.3 Eosinophils % 0.0 D Basophils % 0.2 Nucleated RBC % 0 ESR PT with INR INR PTT (Actin FS) VBG pH POC VBG pCO2 POC VBG pO2 VBG HCO3 VBG O2 Sat (Alber) VBG Base Excess Sodium 142 Potassium 3.6 Chloride 106 Carbon Dioxide 31 Anion Gap 5 L BUN 20.2 H Creatinine 0.6 Est GFR (CKD-EPI)AfAm 112.43 Est GFR (CKD-EPI)NonAf 97.01 Random Glucose 106 Lactic Acid Calcium 9.3 Phosphorus Magnesium Total Bilirubin 0.2 AST 15 ALT 29 Alkaline Phosphatase 93 Troponin I < 0.02 C-Reactive Protein Total Protein 7.0 Albumin 3.9 Prealbumin Urine Color Yellow Urine Appearance Clear Urine pH 6.0 Ur Specific Coleman 1.027 Urine Protein 1+ H Urine Glucose (UA) Trace Urine Ketones 4+ H Urine Blood Negative Urine Nitrite Positive H Urine Bilirubin Negative Urine Urobilinogen 0.2 Ur Leukocyte Esterase Negative Urine RBC (Auto) 2 Urine Casts (Auto) 26 U Epithel Cells (Auto) 0.5 Urine Bacteria (Auto) 6831.1 Vancomycin Pre-Dose Rheumatoid Factor CARLA Screen Adenovirus (PCR) Hep C Ab Diagnostic HIV 1&2 Ag/Ab, 4th Gen Human Metapneumovir PCR Influenza A (Rapid) Influenza A (H1) PCR Influenza B (Rapid) Influenza B (RT-PCR) Parainfluenza 1 (PCR) Parainfluenza 2 (PCR) Parainfluenza 3 (PCR) RSV Type A (PCR) RSV Type B (PCR) Rhinovirus (PCR) TB Test (QFT) Nil TB Test (QFT) Mitogen TB Test (QFT) Antigen TB Test (QFT) TB Positive Criteria 09/04/19 09/05/19 09/06/19 22:40 01:55 06:00 WBC RBC Hgb Hct MCV MCH MCHC RDW Plt Count MPV Absolute Neuts (auto) Neutrophils % Lymphocytes % Monocytes % Eosinophils % Basophils % Nucleated RBC % ESR PT with INR INR PTT (Actin FS) VBG pH POC VBG pCO2 POC VBG pO2 VBG HCO3 VBG O2 Sat (Alber) VBG Base Excess Sodium Potassium Chloride Carbon Dioxide Anion Gap BUN Creatinine Est GFR (CKD-EPI)AfAm Est GFR (CKD-EPI)NonAf Random Glucose Lactic Acid 0.8 Calcium Phosphorus Magnesium Total Bilirubin AST ALT Alkaline Phosphatase Troponin I C-Reactive Protein Total Protein Albumin Prealbumin Urine Color Urine Appearance Urine pH Ur Specific Coleman Urine Protein Urine Glucose (UA) Urine Ketones Urine Blood Urine Nitrite Urine Bilirubin Urine Urobilinogen Ur Leukocyte Esterase Urine RBC (Auto) Urine Casts (Auto) U Epithel Cells (Auto) Urine Bacteria (Auto) Vancomycin Pre-Dose Rheumatoid Factor CARLA Screen Adenovirus (PCR) Negative Hep C Ab Diagnostic HIV 1&2 Ag/Ab, 4th Gen Human Metapneumovir PCR Negative Influenza A (Rapid) Negative Influenza A (H1) PCR Positive H Influenza B (Rapid) Negative Influenza B (RT-PCR) Negative Parainfluenza 1 (PCR) Negative Parainfluenza 2 (PCR) Negative Parainfluenza 3 (PCR) Negative RSV Type A (PCR) Negative RSV Type B (PCR) Negative Rhinovirus (PCR) Negative TB Test (QFT) Nil TB Test (QFT) Mitogen TB Test (QFT) Antigen TB Test (QFT) TB Positive Criteria 09/06/19 09/06/19 09/07/19 08:15 08:15 07:16 WBC 8.6 10.3 H RBC 3.44 L 3.86 Hgb 10.9 12.2 Hct 31.3 L D 35.3 MCV 91.2 91.5 MCH 31.6 31.7 MCHC 34.7 34.6 RDW 14.9 15.0 Plt Count 228 D 227 MPV 7.6 7.9 Absolute Neuts (auto) 6.9 9.0 H Neutrophils % 79.7 88.1 H Lymphocytes % 14.0 D 8.2 D Monocytes % 6.0 3.6 L Eosinophils % 0.0 0.0 Basophils % 0.3 0.1 Nucleated RBC % 0 0 ESR PT with INR INR PTT (Actin FS) VBG pH POC VBG pCO2 POC VBG pO2 VBG HCO3 VBG O2 Sat (Alber) VBG Base Excess Sodium 141 Potassium 3.0 L Chloride 105 Carbon Dioxide 28 Anion Gap 8 BUN 9.3 Creatinine 0.4 L Est GFR (CKD-EPI)AfAm 128.47 Est GFR (CKD-EPI)NonAf 110.85 Random Glucose 79 Lactic Acid Calcium 7.8 L Phosphorus Magnesium Total Bilirubin 0.3 AST 19 ALT 21 Alkaline Phosphatase 64 Troponin I C-Reactive Protein Total Protein 5.3 L Albumin 2.8 L Prealbumin Urine Color Urine Appearance Urine pH Ur Specific Coleman Urine Protein Urine Glucose (UA) Urine Ketones Urine Blood Urine Nitrite Urine Bilirubin Urine Urobilinogen Ur Leukocyte Esterase Urine RBC (Auto) Urine Casts (Auto) U Epithel Cells (Auto) Urine Bacteria (Auto) Vancomycin Pre-Dose Rheumatoid Factor CARLA Screen Adenovirus (PCR) Hep C Ab Diagnostic HIV 1&2 Ag/Ab, 4th Gen Human Metapneumovir PCR Influenza A (Rapid) Influenza A (H1) PCR Influenza B (Rapid) Influenza B (RT-PCR) Parainfluenza 1 (PCR) Parainfluenza 2 (PCR) Parainfluenza 3 (PCR) RSV Type A (PCR) RSV Type B (PCR) Rhinovirus (PCR) TB Test (QFT) Nil TB Test (QFT) Mitogen TB Test (QFT) Antigen TB Test (QFT) TB Positive Criteria 09/07/19 09/07/19 09/07/19 07:16 07:16 07:16 WBC RBC Hgb Hct MCV MCH MCHC RDW Plt Count MPV Absolute Neuts (auto) Neutrophils % Lymphocytes % Monocytes % Eosinophils % Basophils % Nucleated RBC % ESR 20 PT with INR INR PTT (Actin FS) VBG pH POC VBG pCO2 POC VBG pO2 VBG HCO3 VBG O2 Sat (Alber) VBG Base Excess Sodium 138 Potassium 3.5 Chloride 103 Carbon Dioxide 23 Anion Gap 12 BUN 5.8 L Creatinine 0.4 L Est GFR (CKD-EPI)AfAm 128.47 Est GFR (CKD-EPI)NonAf 110.85 Random Glucose 88 Lactic Acid Calcium 8.2 L Phosphorus Magnesium Total Bilirubin 0.7 AST 24 ALT 23 Alkaline Phosphatase 63 Troponin I C-Reactive Protein 12.1 H Total Protein 5.6 L Albumin 2.8 L Prealbumin Urine Color Urine Appearance Urine pH Ur Specific Coleman Urine Protein Urine Glucose (UA) Urine Ketones Urine Blood Urine Nitrite Urine Bilirubin Urine Urobilinogen Ur Leukocyte Esterase Urine RBC (Auto) Urine Casts (Auto) U Epithel Cells (Auto) Urine Bacteria (Auto) Vancomycin Pre-Dose Rheumatoid Factor < 10.0 CARLA Screen Negative Adenovirus (PCR) Hep C Ab Diagnostic HIV 1&2 Ag/Ab, 4th Gen Human Metapneumovir PCR Influenza A (Rapid) Influenza A (H1) PCR Influenza B (Rapid) Influenza B (RT-PCR) Parainfluenza 1 (PCR) Parainfluenza 2 (PCR) Parainfluenza 3 (PCR) RSV Type A (PCR) RSV Type B (PCR) Rhinovirus (PCR) TB Test (QFT) Nil TB Test (QFT) Mitogen TB Test (QFT) Antigen TB Test (QFT) TB Positive Criteria 09/07/19 09/08/19 09/08/19 17:30 10:30 10:30 WBC 9.7 RBC 3.81 Hgb 12.1 Hct 34.7 MCV 91.2 MCH 31.7 MCHC 34.8 RDW 14.7 Plt Count 212 MPV 8.5 Absolute Neuts (auto) 8.3 H Neutrophils % 85.4 H Lymphocytes % 9.1 Monocytes % 5.4 Eosinophils % 0.0 Basophils % 0.1 Nucleated RBC % 0 ESR PT with INR INR PTT (Actin FS) VBG pH POC VBG pCO2 POC VBG pO2 VBG HCO3 VBG O2 Sat (Alber) VBG Base Excess Sodium 135 L Potassium 3.3 L Chloride 101 Carbon Dioxide 22 Anion Gap 12 BUN 5.1 L Creatinine 0.3 L Est GFR (CKD-EPI)AfAm 141.23 Est GFR (CKD-EPI)NonAf 121.85 Random Glucose 76 Lactic Acid Calcium 7.9 L Phosphorus Magnesium Total Bilirubin 0.5 AST 25 ALT 23 Alkaline Phosphatase 60 Troponin I C-Reactive Protein Total Protein 5.4 L Albumin 2.4 L Prealbumin Urine Color Urine Appearance Urine pH Ur Specific Coleman Urine Protein Urine Glucose (UA) Urine Ketones Urine Blood Urine Nitrite Urine Bilirubin Urine Urobilinogen Ur Leukocyte Esterase Urine RBC (Auto) Urine Casts (Auto) U Epithel Cells (Auto) Urine Bacteria (Auto) Vancomycin Pre-Dose Rheumatoid Factor CARLA Screen Adenovirus (PCR) Hep C Ab Diagnostic HIV 1&2 Ag/Ab, 4th Gen Human Metapneumovir PCR Influenza A (Rapid) Influenza A (H1) PCR Influenza B (Rapid) Influenza B (RT-PCR) Parainfluenza 1 (PCR) Parainfluenza 2 (PCR) Parainfluenza 3 (PCR) RSV Type A (PCR) RSV Type B (PCR) Rhinovirus (PCR) TB Test (QFT) Nil 0.02 TB Test (QFT) Mitogen 8.22 TB Test (QFT) Antigen 0.03 TB Test (QFT) Negative TB Positive Criteria 09/09/19 09/09/19 09/09/19 14:56 14:56 14:56 WBC 6.6 RBC 4.18 Hgb 13.1 Hct 38.1 MCV 91.1 MCH 31.4 MCHC 34.4 RDW 14.5 Plt Count 265 D MPV 8.8 Absolute Neuts (auto) 5.3 Neutrophils % 81.2 Lymphocytes % 9.3 Monocytes % 8.4 Eosinophils % 0.8 D Basophils % 0.3 Nucleated RBC % 0 ESR 36 H PT with INR INR PTT (Actin FS) VBG pH POC VBG pCO2 POC VBG pO2 VBG HCO3 VBG O2 Sat (Alber) VBG Base Excess Sodium Potassium Chloride Carbon Dioxide Anion Gap BUN Creatinine Est GFR (CKD-EPI)AfAm Est GFR (CKD-EPI)NonAf Random Glucose Lactic Acid Calcium Phosphorus Magnesium Total Bilirubin AST ALT Alkaline Phosphatase Troponin I C-Reactive Protein Total Protein Albumin Prealbumin Urine Color Urine Appearance Urine pH Ur Specific Coleman Urine Protein Urine Glucose (UA) Urine Ketones Urine Blood Urine Nitrite Urine Bilirubin Urine Urobilinogen Ur Leukocyte Esterase Urine RBC (Auto) Urine Casts (Auto) U Epithel Cells (Auto) Urine Bacteria (Auto) Vancomycin Pre-Dose 6.3 L Rheumatoid Factor CARLA Screen Adenovirus (PCR) Hep C Ab Diagnostic <0.1 HIV 1&2 Ag/Ab, 4th Gen Non reactive Human Metapneumovir PCR Influenza A (Rapid) Influenza A (H1) PCR Influenza B (Rapid) Influenza B (RT-PCR) Parainfluenza 1 (PCR) Parainfluenza 2 (PCR) Parainfluenza 3 (PCR) RSV Type A (PCR) RSV Type B (PCR) Rhinovirus (PCR) TB Test (QFT) Nil TB Test (QFT) Mitogen TB Test (QFT) Antigen TB Test (QFT) TB Positive Criteria 09/09/19 09/10/19 09/10/19 14:56 10:49 10:49 WBC 6.2 RBC 4.06 Hgb 12.7 Hct 36.7 MCV 90.3 MCH 31.3 MCHC 34.7 RDW 14.5 Plt Count 309 MPV 8.3 Absolute Neuts (auto) Neutrophils % Lymphocytes % Monocytes % Eosinophils % Basophils % Nucleated RBC % ESR PT with INR INR PTT (Actin FS) VBG pH POC VBG pCO2 POC VBG pO2 VBG HCO3 VBG O2 Sat (Alber) VBG Base Excess Sodium 137 138 Potassium 3.3 L 2.8 L* Chloride 102 101 Carbon Dioxide 26 27 Anion Gap 9 10 BUN 6.2 L 3.2 L Creatinine 0.4 L 0.3 L Est GFR (CKD-EPI)AfAm 128.47 141.23 Est GFR (CKD-EPI)NonAf 110.85 121.85 Random Glucose 118 H 99 Lactic Acid Calcium 8.5 8.5 Phosphorus Magnesium Total Bilirubin 0.7 AST 28 ALT 28 Alkaline Phosphatase 68 Troponin I C-Reactive Protein 13.0 H Total Protein 6.1 L Albumin 2.6 L Prealbumin 9.1 L Urine Color Urine Appearance Urine pH Ur Specific Coleman Urine Protein Urine Glucose (UA) Urine Ketones Urine Blood Urine Nitrite Urine Bilirubin Urine Urobilinogen Ur Leukocyte Esterase Urine RBC (Auto) Urine Casts (Auto) U Epithel Cells (Auto) Urine Bacteria (Auto) Vancomycin Pre-Dose Rheumatoid Factor CARLA Screen Adenovirus (PCR) Hep C Ab Diagnostic HIV 1&2 Ag/Ab, 4th Gen Human Metapneumovir PCR Influenza A (Rapid) Influenza A (H1) PCR Influenza B (Rapid) Influenza B (RT-PCR) Parainfluenza 1 (PCR) Parainfluenza 2 (PCR) Parainfluenza 3 (PCR) RSV Type A (PCR) RSV Type B (PCR) Rhinovirus (PCR) TB Test (QFT) Nil TB Test (QFT) Mitogen TB Test (QFT) Antigen TB Test (QFT) TB Positive Criteria 09/10/19 09/11/19 09/11/19 16:38 08:57 08:57 WBC 8.0 RBC 3.99 Hgb 12.2 Hct 35.9 MCV 89.9 MCH 30.7 MCHC 34.1 RDW 14.8 Plt Count 348 MPV 7.5 Absolute Neuts (auto) 5.8 Neutrophils % 72.9 Lymphocytes % 12.8 D Monocytes % 11.5 H Eosinophils % 2.5 D Basophils % 0.3 Nucleated RBC % 0 ESR Cancelled PT with INR INR PTT (Actin FS) VBG pH POC VBG pCO2 POC VBG pO2 VBG HCO3 VBG O2 Sat (Alber) VBG Base Excess Sodium 138 Potassium 3.5 Chloride 102 Carbon Dioxide 24 Anion Gap 12 BUN 6.6 L Creatinine 0.4 L Est GFR (CKD-EPI)AfAm 128.47 Est GFR (CKD-EPI)NonAf 110.85 Random Glucose 117 H Lactic Acid Calcium 8.5 Phosphorus Magnesium Total Bilirubin AST ALT Alkaline Phosphatase Troponin I C-Reactive Protein Total Protein Albumin Prealbumin Urine Color Urine Appearance Urine pH Ur Specific Coleman Urine Protein Urine Glucose (UA) Urine Ketones Urine Blood Urine Nitrite Urine Bilirubin Urine Urobilinogen Ur Leukocyte Esterase Urine RBC (Auto) Urine Casts (Auto) U Epithel Cells (Auto) Urine Bacteria (Auto) Vancomycin Pre-Dose Rheumatoid Factor CARLA Screen Adenovirus (PCR) Hep C Ab Diagnostic HIV 1&2 Ag/Ab, 4th Gen Human Metapneumovir PCR Influenza A (Rapid) Influenza A (H1) PCR Influenza B (Rapid) Influenza B (RT-PCR) Parainfluenza 1 (PCR) Parainfluenza 2 (PCR) Parainfluenza 3 (PCR) RSV Type A (PCR) RSV Type B (PCR) Rhinovirus (PCR) TB Test (QFT) Nil TB Test (QFT) Mitogen TB Test (QFT) Antigen TB Test (QFT) TB Positive Criteria 09/11/19 09/12/19 09/12/19 08:57 07:20 07:20 WBC 9.1 RBC 3.85 Hgb 11.9 Hct 34.8 MCV 90.5 MCH 30.8 MCHC 34.1 RDW 14.6 Plt Count 387 MPV 7.3 L Absolute Neuts (auto) 6.7 Neutrophils % 73.5 Lymphocytes % 11.6 Monocytes % 10.9 H Eosinophils % 3.6 Basophils % 0.4 Nucleated RBC % 0 ESR PT with INR INR PTT (Actin FS) VBG pH POC VBG pCO2 POC VBG pO2 VBG HCO3 VBG O2 Sat (Alber) VBG Base Excess Sodium 138 136 Potassium 3.3 L 3.0 L Chloride 104 102 Carbon Dioxide 26 25 Anion Gap 8 9 BUN 6.6 L 6.7 L Creatinine 0.4 L 0.3 L Est GFR (CKD-EPI)AfAm 128.47 141.23 Est GFR (CKD-EPI)NonAf 110.85 121.85 Random Glucose 81 108 H Lactic Acid Calcium 8.5 8.1 L Phosphorus 2.3 L 2.3 L Magnesium 2.1 1.9 Total Bilirubin 1.2 H 0.7 AST 16 14 L ALT 22 18 Alkaline Phosphatase 63 60 Troponin I C-Reactive Protein Total Protein 5.6 L 5.4 L Albumin 2.4 L 2.2 L Prealbumin Urine Color Urine Appearance Urine pH Ur Specific Coleman Urine Protein Urine Glucose (UA) Urine Ketones Urine Blood Urine Nitrite Urine Bilirubin Urine Urobilinogen Ur Leukocyte Esterase Urine RBC (Auto) Urine Casts (Auto) U Epithel Cells (Auto) Urine Bacteria (Auto) Vancomycin Pre-Dose Rheumatoid Factor CARLA Screen Adenovirus (PCR) Hep C Ab Diagnostic HIV 1&2 Ag/Ab, 4th Gen Human Metapneumovir PCR Influenza A (Rapid) Influenza A (H1) PCR Influenza B (Rapid) Influenza B (RT-PCR) Parainfluenza 1 (PCR) Parainfluenza 2 (PCR) Parainfluenza 3 (PCR) RSV Type A (PCR) RSV Type B (PCR) Rhinovirus (PCR) TB Test (QFT) Nil TB Test (QFT) Mitogen TB Test (QFT) Antigen TB Test (QFT) TB Positive Criteria Discharge Medications Medication Instructions Recorded Acetaminophen 325 mg PO PRN 07/29/19 Aspirin 81 mg PO DAILY 07/29/19 Atorvastatin Ca [Lipitor] 40 mg PO HS 07/29/19 Clonazepam 1 mg PO QID 07/29/19 Dextran 70/Hypromellose 1 each OU BID 07/29/19 [Artificial Tears] Dimethyl Fumarate [Tecfidera] 240 mg PO BID 07/29/19 Docusate Sodium [Docusate 100 mg] 200 mg PO HS 07/29/19 Cefuroxime Axetil [Ceftin -] 500 mg PO Q12H 6 Days #12 tablet 09/13/19 Megestrol Acetate Oral Susp 400 mg PO DAILY cup 09/13/19 [Megace Oral Suspension -] Polyethylene Glycol 3350 [Miralax 17 gm PO DAILY #1 bottle 09/13/19 (For Daily Use) -] ASSESSMENT AND PLAN: 63 year old female resident of [facility], with history of MS, Dementia, Anxiety/Depression, Schizoaffective Disorder, HLD, presented with fever, tachypnea, found to be Septic. 1. Acute Metabolic Encephalopathy sec to Sepsis secondary to A) UTI and B) Bilateral Pneumonia ? aspiration/Influenza A PCR positive Urine Cx - Ecoli. CT Chest - bilateral infiltrates. CT head - no acute findings. Treated with Cefepime/Vanc - transitioned to oral Ceftin as per ID for 6 additional days. Afebrile, Hemodynamically Stable. Confusion resolved. Sepsis resolved. Seen by Speech Therapy - recommended for regular diet with thin liquids. 2. MS - on Tecfidera. No evidence of acute exacerbation/flare. 3. Schizoaffective Disorder - continue Clonazepam (for slow taper as per Psychiatry), Seroquel. Remeron discontinued due to prolonged QTc. [facility] follow up on discharge. 4. HLD - continue Statin. Medically stable for transfer to SNF ([facility]) before return to [facility].
--- NOTE | 2019-09-13 16:17 | DS ---
Physical Exam: SUBJECTIVE: Patient seen and examined at bedside this AM. Coughing minimally, but afebrile, no changes in mental status. OBJECTIVE: Vital Signs Period Temp Pulse Resp BP Sys/Clemente Pulse Ox Last 24 Hr 98.1 F-98.8 F 94-110 18-20 125-154/52-83 93 PHYSICAL EXAM GENERAL: The patient is awake, alert, stable no changes, responsive to questions and commands. LUNGS: Breath sounds equal, clear to auscultation bilaterally, no wheezes, no crackles, no accessory muscle use. HEART: Regular rate and rhythm, S1, S2 without murmur, rub or gallop. ABDOMEN: Soft, nontender, nondistended EXTREMITIES: 2+ pulses, warm, well-perfused, no edema. Neuro- able to walk with PT with walker. LABS HOSPITAL COURSE: Date of Admission:09/04/19 Imaging: - CXR: increased interstitial markings but no infiltrate, - CT spine lumbar + thoracic shows no abscess, 2.5 cm rt lobe mass, L3, L4 stenosis, dilated GD, rt renal cyst - CT head- No fx or bleed on preliminary report, shows air bubble on scalp - CTchest: B/l lower lobe infilitrates Lt>Rt concern for acute PNA, patchy infiltrates in b/l lobes, atelectasis at rt lung base. This patient was admitted for management of sepsis 2/2 UTI and PNA. Pt was initially being managed for a UTI w ceftriaxone given Urine Cx growth with negative CXR. However, pt spiked fevers at night and there was concern for Acute MS exacerbation 2/2 infection. Pt was decreased on seroquel from 25-> 12.5HS and d/c'd remeron due to QTc prolongation. Neurology consulted (Graham) who did not think this was an MS exacerbation. Pt was seen by psych to ensure optimal psych med reconciliation in order. Pt's daughters are extensively involved in pts care and notified of these adjustments as well as need to follow up with neuro, psych, and PCP within 1 week. Pt is alert and oriented to time, place, and self, but severe memory impairment. Pt was influenza PCR positive while here but was not given tamiflu because of time of onset of symptoms. Pt was found to have b/l PNA on CT chest, 2/2 Aspiration likely and started on vanc, cefepime, and doxy for broad coverage, and once legionella and step pna Ag negative doxy was taken off. Pt was sent home on ceftin 500 BID x 6 days for Asp PNA mgmt. Pt informed to follow up with pulm after PNA mangement completed. Pt told to take miralax and megase appetite stimulant as well. Pt discharge meds adjusted after d/c: Seroquel 12.5 HS was not on d/c meds list but spoke with [facility] nursing coin machine supervisor who ensured pt would receive this med and be added to discharge med list. . Date of Discharge: 09/13/19 Discharge Summary Problems reviewed: Yes Reason For Visit: SEPSIS Condition: Stable - Instructions Diet, Activity, Other Instructions: You were seen in the hospital for complaints of difficulty breathing and fever. You were found to have an infection in your urine as well as your lung and treated with IV antibiotics. You were seen by an infectious disease specialist, a lung specialist, a brain specialist (neurologist), and a psychiatrist who you should follow up with after you leave here. Medications We have made the following changes to your medications: Please START taking Ceftin 500 mg twice a day by mouth for 6 days for your urinary tract infection. Your last day will be on September 18. Please STOP taking mirtazapine after here. Please STOP taking Quetiapine 25 mg. We have lowered your dose of this medication. Please START taking Quetiapine 12.5 mg once a night by mouth. Please START taking Miralax 17 mg once a day by mouth for constipation. Please START taking Megace 400 mg once a day by mouth to help with your appetite. You may continue taking the rest of your medications as prescribed. Follow Up Please follow up with your primary care physician Dr. Crystal, within 1 week. Please follow up with your psychiatrist within 1 week. If you do not have one, you may see Terrell Bella. Please follow up with your neurologist, Dr. Stevenson within 1 week. Please follow up with your parking meter attendant, Dr. Cole within 1 week. If you experience worsening mental status, fever/chills, chest pain, shortness of breath or other associated symptoms, please proceed to your nearest emergency room immediately. Referrals: Luis Alberto Grimaldo MD [Staff Physician] - 1 Week Navneet Cole MD [Staff Physician] - 1 Week Terrell Bella NP [Nurse Practitioner] - 1 Week Ky Stevenson MD [Staff Physician] - 1 Week Disposition: [facility] - Home Medications Comprehensive Discharge Medication List: Ambulatory Orders Acetaminophen 325 mg PO PRN 07/29/19 Aspirin 81 mg PO DAILY 07/29/19 Atorvastatin Ca [Lipitor] 40 mg PO HS 07/29/19 Clonazepam 1 mg PO QID 07/29/19 Dextran 70/Hypromellose [Artificial Tears] 1 each OU BID 07/29/19 Dimethyl Fumarate [Tecfidera] 240 mg PO BID 07/29/19 Docusate Sodium [Docusate 100 mg] 200 mg PO HS 07/29/19 Cefuroxime Axetil [Ceftin -] 500 mg PO Q12H 6 Days #12 tablet 09/13/19 Megestrol Acetate Oral Susp [Megace Oral Suspension -] 400 mg PO DAILY cup 07/21 Polyethylene Glycol 3350 [Miralax (For Daily Use) -] 17 gm PO DAILY #1 bottle Quetiapine Fumarate [Seroquel -] 12.5 mg PO HS tablet 09/13/19 - Discharge Referral Referred to [facility] No ATTENDING PHYSICIAN STATEMENT I saw and evaluated the patient. I reviewed the resident's note and discussed the case with the resident. I agree with the resident's findings and plan as documented. SUBJECTIVE: OBJECTIVE: ASSESSMENT AND PLAN:
== END 2019-09-13 12:03 | DRG 871 ==
LOC: JER 18:27 → JERBED 23:51 → J6S 09-05 04:44
PROVIDERS: ADMIT Internal Medicine
DX: A41.51 Sepsis due to Escherichia coli [E. coli] (principal); J69.0 Pneumonitis due to inhalation of food and vomit; G93.41 Metabolic encephalopathy; R65.10 Systemic inflammatory response syndrome (SIRS) of non-infectious origin without acute organ dysfunction; R94.31 Abnormal electrocardiogram [ECG] [EKG]; E78.5 Hyperlipidemia, unspecified; G35 Multiple sclerosis; N31.9 Neuromuscular dysfunction of bladder, unspecified; F32.9 Major depressive disorder, single episode, unspecified; F25.9 Schizoaffective disorder, unspecified; F41.9 Anxiety disorder, unspecified; J09.X2 Influenza due to identified novel influenza A virus with other respiratory manifestations
CPT/HCPCS: 36415; 70450-TC; 71045-TC-FY; 71250-TC; 72129-TC; 72132-TC; 74230-TC-FY; 76705-TC; 80048; 80053; 81003; 82803; 83605; 83735; 84100; 84134; 84484; 85025; 85027; 85610; 85651; 85730; 86038; 86140; 86431; 86480; 86803; 87040; 87070; 87086; 87186; 87205; 87389; 87633; 87804; 87899; 92611-GN; 93005; 93010; 94010; 97116-GP; 97162-GP; 99285-25; G0480; J0131; J7030